=== PATIENT | female | born 1965 | race African-American/Black ===

== ENCOUNTER 2019-03-18 04:12 | Inpatient (IN) | payer OTHER, MEDICAID, SELFPAY ==
[2019-03-18] VITALS (25 sets, daily range): BP systolic 86–130; BP diastolic 50–78; PULSE 65–132; RESP 18–29; TEMP 36.6–37.3; O2SAT 98–100; BMI 25.8
--- NOTE | ~2019-03-18 | XR_ITS ---
EXAMINATION: XR chest 1V portable DATE: 03/18/2019 06:12 INDICATION: Shortness of breath and cough. TECHNIQUE: A single frontal view of the chest was obtained. COMPARISON: Chest 2 views 11/13/2017 FINDINGS: There is mild atelectasis in left mid and lower lung zones. No pleural effusion or pneumoth orax. The heart size is normal. IMPRESSION: 1. Mild atelectasis in left mid and lower lung zones. Reviewed, dictated and finalized at location A. STANT BASEBALL COACH
--- NOTE | ~2019-03-18 | XR_ITS ---
EXAMINATION: XR chest 1V portable DATE: 03/21/2019 05:35 INDICATION: Acute respiratory failure. Pulmonary edema. TECHNIQUE: A single frontal view of the chest was obtained. COMPARISON: Chest single view 03/20/2019, chest CT 03/20/2019 FINDINGS: There is mild atelectasis in left lower lung zone. No pleural effusion or pneumothorax. The heart size is normal. Mediastinal lymphadenopathy is noted. The endotracheal tube tip is 3.4 cm abov e the ondina. A right internal jugular central venous catheter is seen with tip in the superior vena cava. The nasogastric tube tip is in the stomach. There is an old healed fracture of left sixth rib. IMPRESSION: 1. Mild atelectasis in left lower lung zone. 2. Mediastinal lymphadenopathy, consistent with metastatic disease. Reviewed, dictated and finalized at location A. O GENERATION MANAGER
--- NOTE | ~2019-03-18 | XR_ITS ---
EXAMINATION: XR chest 1V portable DATE: 03/20/2019 04:16 INDICATION: Cardiopulmonary failure. TECHNIQUE: A single frontal view of the chest was obtained. COMPARISON: Chest single view 03/19/2019 FINDINGS: There is a diffuse interstitial pattern in the lungs. There are airspace opacities in the p erihilar regions bilaterally. No pleural effusion or pneumothorax. The heart size is normal. Calcifie d hilar and mediastinal lymph nodes are consistent with old granulomatous disease. IMPRESSION: 1. Worsened diffuse lung disease, consistent with moderate pulmonary edema. Reviewed, dictated and finalized at location A. RACT SPECIALIST
--- NOTE | ~2019-03-18 | XR_ITS ---
EXAMINATION: XR chest ET placement DATE: 03/20/2019 03:57 INDICATION: Intubation. TECHNIQUE: A single frontal view of the chest was obtained. COMPARISON: Chest single view at 2:52 AM FINDINGS: There is a diffuse interstitial pattern in the lungs. There are bilateral perihilar airspac e opacities. No pleural effusion or pneumothorax. The heart size is normal. The endotracheal tube tip is 6 mm above the ondina. The nasogastric tube tip is beyond the inferior margin of the radiograph, but at least to the stomach. IMPRESSION: 1. Endotracheal tube tip 6 mm above the ondina. 2. Unchanged moderate pulmonary edema. Reviewed, dictated and finalized at location A. UCT MARKETING SPECIALIST
--- NOTE | ~2019-03-18 | XR_ITS ---
EXAMINATION: XR chest 1V portable DATE: 03/25/2019 05:58 INDICATION: Acute respiratory failure. Pulmonary edema. TECHNIQUE: frontal view of the chest was obtained. COMPARISON: Chest radiograph dated 03/24/2019 FINDINGS: Endotracheal tube tip 3.2 cm above the ondina. Right internal jugular central venous catheter with di stal tip at the midsuperior vena cava. Nasogastric tube with proximal side-port in the body of the st omach and distal tip extending beyond the inferior margin of the [id number]. Again seen is a diffuse increased indistinct interstitial pattern. Nodular opacity left lower lung zo ne. No pleural effusion or pneumothorax. Heart size is normal. Large left superior mediastinal mass w hich silhouettes the aortic arch. Left fifth rib fracture. IMPRESSION: 1. Unchanged mild pulmonary edema. 2. Nodular opacity left lower lobe with superior left mediastinal mass suspicious for metastatic lung cancer. Reviewed, dictated and finalized at location A. KSMITH SUPERVISOR IMPRESSION: 1. Unchanged mild pulmonary edema. 2. Nodular opacity left lower lobe with superior left mediastinal mass suspicio us for metastatic lung cancer.
--- NOTE | ~2019-03-18 | CT_ITS ---
EXAMINATION: CTA chest PE abdomen pel DATE: 03/20/2019 11:32 INDICATION: Pulmonary embolus. Colitis. TECHNIQUE: Computed tomography angiography (CTA) of the chest was performed with 100 mL Omnipaque-350 intravenous contrast timed to evaluate the pulmonary arteries. Coronal maximum intensity projection 3D-reconstructions were created by the technologist. Computed tomography (CT) of the abdomen and pelv is was performed with intravenous contrast. Automated exposure control and iterative reconstruction t echnique were employed. The dose-length product was 1315.02 mGy-cm. COMPARISON: None. FINDINGS: CTA chest: There is mild emphysema. The lungs demonstrate smooth septal thickening, consistent with p ulmonary edema. There is dependent atelectasis bilaterally. There is a 1.4 cm nodule in left lung low er lobe. There is a trace right pleural effusion. There is mediastinal and left supraclavicular lymph adenopathy. For example, a left supraclavicular node measures 4.3 x 3.2 cm. The endotracheal tube tip is in expected position above the ondina. Calcified left hilar and mediastinal lymph nodes are consi stent with old granulomatous disease. The nasogastric tube tip is in the stomach. There is no pulmona ry embolus. There is moderate thoracic spondylosis. CT abdomen and pelvis: There is a 1.9 cm low-attenuation mass in right hepatic lobe. The gallbladder is normal. There is a 2.0 cm low-attenuation mass in the spleen. The pancreas is normal. There are ma sses in the adrenal glands measuring up to 6.4 x 3.5 cm on the right. The kidneys are normal. There a re no dilated loops of bowel. There is a small volume of ascites. There is edema of the body wall fat and intra-abdominal fat. There is severe lumbar spondylosis. IMPRESSION: 1. No pulmonary embolus. Sensitivity is moderately decreased by motion artifact. 2. 1.4 cm nodule in left lung lower lobe suspicious for primary bronchogenic carcinoma. 3. Mediastinal and left supraclavicular lymphadenopathy and bilateral adrenal masses, consistent with metastatic disease. A liver mass and a splenic mass are suspicious for metastatic disease. 4. Mild pulmonary edema. 5. Mild emphysema. 6. Small volume of ascites. Reviewed, dictated and finalized at location A. ROSE CRUSHER IMPRESSION: 1. No pulmonary embolus. Sensitivity is moderately decreased by motion artifact . 2. 1.4 cm nodule in left lung lower lobe suspicious for primary bronchogenic ca rcinoma. 3. Mediastinal and left supraclavicular lymphadenopathy and bilateral adrenal m asses, consistent with metastatic disease. A liver mass and a splenic mass are suspicious for metastatic disease. 4. Mild pulmonary edema. 5. Mild emphysema. 6. Small volume of ascites.
--- NOTE | ~2019-03-18 | XR_ITS ---
EXAMINATION: XR chest 1V portable DATE: 03/19/2019 00:25 INDICATION: Pulmonary edema. TECHNIQUE: A single frontal view of the chest was obtained. COMPARISON: Chest single view 03/18/2019 FINDINGS: There is a diffuse interstitial pattern in the lungs, consistent with mild pulmonary edema. Calcified pulmonary nodules and calcified hilar and mediastinal lymph nodes are consistent with old granulomatous disease. No pleural effusion or pneumothorax. The heart size is normal. IMPRESSION: 1. Mild pulmonary edema. Reviewed, dictated and finalized at location A. EL TRUCK DRIVER IMPRESSION: 1. Mild pulmonary edema.
--- NOTE | ~2019-03-18 | XR_ITS ---
EXAMINATION: XR chest 1V portable DATE: 03/24/2019 06:03 INDICATION: Acute respiratory failure. Pulmonary edema. TECHNIQUE: frontal view of the chest was obtained. COMPARISON: Chest radiograph dated 03/23/2019 FINDINGS: Endotracheal tube tip 3.2 cm above the ondina. Right internal jugular central venous catheter with di stal tip in the midsuperior vena cava. Nasogastric tube with proximal side-port in the body of the s tomach with distal tip collimated off the study. No interval change attending for differences in technique in a diffuse mild increased interstitial pa ttern consistent with mild pulmonary edema. Subtle nodular opacity projecting over the left lower dorian g zone. No pleural effusion or pneumothorax. Heart size is normal. Large left superior mediastinal ma ss which silhouettes the aortic arch. Old healed left fifth rib fracture. IMPRESSION: 1. Persistent mild pulmonary edema. 2. Subtle nodules in the left lower lung zone with left superior mediastinal mass suspicious for meta static disease. Reviewed, dictated and finalized at location A. E ASSEMBLER AND SWAGER IMPRESSION: 1. Persistent mild pulmonary edema. 2. Subtle nodules in the left lower lung zone with left superior mediastinal ma ss suspicious for metastatic disease.
--- NOTE | ~2019-03-18 | XR_ITS ---
XR chest 1V portable DATE: 03/23/2019 06:08 INDICATION: Acute respiratory failure. Pulmonary edema. TECHNIQUE: Portable AP chest on 03/23/2019 at 0516 hours COMPARISON: 03/22/2019 portable AP chest at 0509 hours FINDINGS: ET tube in satisfactory position 3.6 cm above ondina. NG tube in stomach. Right internal ju gular central venous catheter tip overlies the superior vena cava. Normal heart size. Mild aortic unfolding. There is discoid atelectasis in the left mid lung. There is diminished infiltrate or atelectasis in t he left lower lung. No pleural effusion. No pneumothorax. Diffuse osteopenia. IMPRESSION: , Diminished left lower lobe infiltrate since 03/22/2019 Discoid atelectasis, left midlung Reviewed, dictated and finalized at location A. OR INTERNAL AUDITOR
--- NOTE | ~2019-03-18 | XR_ITS ---
EXAMINATION: XR fl Dobhoff insert/rad w img DATE: 03/26/2019 11:36 INDICATION: Nasoenteric tube placement. TECHNIQUE: I placed a nasoenteric tube with fluoroscopic guidance. Fluoroscopy exposure time was 1.1 minutes. The total number of images was 4. COMPARISON: Abdomen radiographs 03/23/2019 FINDINGS: The new nasoenteric tube tip is in the distal stomach. Slack in the tube should allow it to pass into the duodenum with peristalsis. The orogastric tube tip is in the stomach. IMPRESSION: 1. Fluoroscopy guided nasoenteric tube placement with tip in the distal stomach. Reviewed, dictated and finalized at location A. PER CUTTER IMPRESSION: 1. Fluoroscopy guided nasoenteric tube placement with tip in the distal stomach .
--- NOTE | ~2019-03-18 | CT_ITS ---
EXAMINATION: CT brain wo con DATE: 03/23/2019 10:12 INDICATION: Encephalopathy TECHNIQUE: Computed tomography (CT) of the head was performed without intravenous contrast. The mA wa s adjusted according to patient size. Iterative reconstruction technique was employed. Exam dose: 12 10.67 mGy-cm total exam DLP. COMPARISON: None FINDINGS: Examination is limited by motion. Significant motion artifact is noted. Repeat examination is recommended. No intracranial mass lesion or apparent intracranial hemorrhage or subdural or epidural hematoma is d etected. No cerebrovascular accident is detected. There is moderate cerebellar and central and cortical cerebral atrophy. No skull fracture or bone destruction. Included paranasal sinuses and mastoid air cells are normally developed and aerated. IMPRESSION: Limited examination due to motion artifact; repeat examination is recommended No definite acute intracranial finding Reviewed, dictated and finalized at Location A. Reviewed, dictated and finalized at location A. RIMENTAL MECHANIC ELECTRICAL
--- NOTE | ~2019-03-18 | XR_ITS ---
EXAMINATION: XR chest port-a-cath/central DATE: 03/20/2019 04:17 INDICATION: Central line placement. TECHNIQUE: A single frontal view of the chest was obtained. COMPARISON: Chest single view at 3:41 AM FINDINGS: The lungs demonstrate a diffuse interstitial pattern. There are airspace opacities in the p erihilar regions bilaterally. No pleural effusion or pneumothorax. The heart size is normal. The endo tracheal tube tip is 4.1 cm above the ondina. The nasogastric tube tip is in the stomach. A right int ernal jugular central venous catheter is seen with tip in the superior vena cava. IMPRESSION: 1. Stable moderate pulmonary edema. Reviewed, dictated and finalized at location A. MAKER
--- NOTE | ~2019-03-18 | XR_ITS ---
XR chest 1V portable DATE: 03/22/2019 05:33 INDICATION: Acute respiratory failure, pulmonary edema TECHNIQUE: Portable AP chest on 03/22/2019 at 0509 hours COMPARISON: 03/21/2019 portable AP chest at 0510 hours 03/20/2019 CTA chest FINDINGS: ET tube in satisfactory position 4.1 cm above ondina. NG tube in stomach. Right internal ju gular central venous catheter tip overlies the superior vena cava. No pneumothorax. Normal heart size. Mediastinal adenopathy is again noted. There is interval improvement of left lower lobe infiltrate or atelectasis since 03/21/2019. There is mild pulmonary vascular congestion and redistribution and mild prominence of the minor fissu re suggesting mild congestive changes. No pleural effusions. IMPRESSION: Minimal residual left lower lung infiltrate or atelectasis Mild congestive changes Reviewed, dictated and finalized at location A. T MANAGER
--- NOTE | ~2019-03-18 | CT_ITS ---
EXAMINATION: CT brain wo con DATE: 03/26/2019 11:04 INDICATION: Altered mental status TECHNIQUE: Computed tomography (CT) of the head was performed without intravenous contrast. Sagittal and coronal reconstructions were performed. The mA was adjusted according to patient size. Iterative reconstruction technique was employed. The dose-length product was 605.33 mGy-cm. COMPARISON: head CT dated 03/23/2019 FINDINGS: No acute intracranial hemorrhage, acute infarction or abnormal extra axial fluid collection. Symmetri c prominence of the sulci and subarachnoid spaces overlying the convexities consistent with mild diff use cerebral volume loss. Ventricles are normal and symmetric. No mass/mass effect. The orbits, para nasal sinuses and mastoid air cells are normal. IMPRESSION: 1. No acute intracranial process. Reviewed, dictated and finalized at location A. CHUTE HARNESS RIGGER
--- NOTE | ~2019-03-18 | XR_ITS ---
XR abdomen obstructive series DATE: 03/23/2019 10:15 INDICATION: Stomach not emptying. Ileus. Evaluate for small bowel obstruction. TECHNIQUE: Supine and upright AP views COMPARISON: None FINDINGS: A nasogastric tube is noted in the proximal body the stomach, the proximal side port approx imately 2.5 cm distal to the diaphragmatic hiatus. Nonspecific bowel gas pattern; no apparent bowel obstruction IMPRESSION: Nonspecific abdomen NG tube in proximal body of stomach Reviewed, dictated and finalized at Location A. Reviewed, dictated and finalized at location A. E MAINTAINER
--- NOTE | ~2019-03-18 | XR_ITS ---
EXAMINATION: XR abdomen obstructive series DATE: 03/24/2019 09:29 INDICATION: Adynamic ileus. TECHNIQUE: Upright and supine views of the abdomen were obtained. COMPARISON: Abdomen radiographs 03/23/2019, CT abdomen and pelvis 03/20/2019 FINDINGS: There are no dilated loops of bowel. No free peritoneal gas. The nasogastric tube tip is in the stomach. Calcified mediastinal lymph nodes are consistent with old granulomatous disease. Medias tinal lymphadenopathy is noted. IMPRESSION: 1. Normal bowel gas pattern. 2. Mediastinal lymphadenopathy, consistent with metastatic disease. Reviewed, dictated and finalized at location A. S SUPPORT CONSULTANT
--- NOTE | ~2019-03-18 | US_ITS ---
EXAMINATION: US venous doppler UE DATE: 03/24/2019 10:37 INDICATION: Left upper limb swelling TECHNIQUE: Grayscale images without and with compression and Doppler images of the left upper extremi ty veins were obtained. COMPARISON: None. FINDINGS: The left internal jugular vein, subclavian vein, axillary vein, brachial vein, basilic vein, cephalic vein, radial vein, and ulnar vein are patent. Bulky left cervical lymphadenopathy with largest lymph node measuring 3.1 x 2.7 x 2.2 cm. IMPRESSION: 1. Patent left upper extremity veins. No evidence of venous thrombosis. 2. Bulky left cervical lymphadenopathy suspicious for metastatic disease and which would be minimal t o percutaneous biopsy if clinically indicated. Reviewed, dictated and finalized at location A. SERVICE ATTENDANT IMPRESSION: 1. Patent left upper extremity veins. No evidence of venous thrombosis. 2. Bulky left cervical lymphadenopathy suspicious for metastatic disease and wh ich would be minimal to percutaneous biopsy if clinically indicated.
--- NOTE | ~2019-03-18 | XR_ITS ---
EXAMINATION: XR chest 1V portable DATE: 03/23/2019 15:38 INDICATION: Shortness of breath. Tachycardia. TECHNIQUE: frontal view of the chest was obtained. COMPARISON: Chest radiograph dated 04/12/2019 FINDINGS: Endotracheal tube tip 3.3 cm above the ondina. Tip of a right internal jugular central venous cathete r at the midsuperior vena cava. Nasogastric tube extends below the left hemidiaphragm with distal ti p collimated off the study. No focal airspace opacities, pleural effusion, pulmonary edema or pneumothorax. The cardiomediastinal silhouette is normal. Visualized bones and soft tissues are unremarkable. IMPRESSION: 1. Lines and tubes in expected positions. No acute cardiopulmonary disease. Reviewed, dictated and finalized at location A. R SYSTEM OPERATOR
--- NOTE | 2019-03-18 04:14 | ED.RECABL ---
HPI - Recheck/Abnormal Lab/Rx General Chief Complaint: Recheck/Abnormal Lab/Rx Stated Complaint: low blood pressure Time Seen by Provider: 03/18/19 04:13 History of Present Illness HPI narrative: Brought in by EMS from OR for hypotension. H/o lung cancer getting care at [facility]. Recently admitted there and required multiple transfusions for anemia. Unclear the etiology. She denies any bleeding, dark stools, or other cause. She requested to be transported to [facility], EMS brought her here due to hypotension. On arrival here she states that she just feels weak. She says this is not new. She has no other complaints. She does admit to poor PO intake. Related Data Home Medications Medication Instructions Recorded Confirmed albuterol sulfate [ProAir HFA] 2 puff INHALATION QID PRN 03/18/19 alprazolam 0.25 mg PO BID PRN 03/18/19 budesonide-formoterol 2 puff INHALATION Q12H 03/18/19 folic acid 1 mg PO DAILY 03/18/19 hydrocodone-acetaminophen 1 tablet PO Q6H PRN 03/18/19 lisinopril-hydrochlorothiazide 1 tablet PO DAILY 03/18/19 magnesium oxide 400 mg PO BID 03/18/19 mecobalamin (vitamin B12) 1,000 mcg SUBLINGUAL DAILY 03/18/19 megestrol 400 mg PO DAILY 03/18/19 metoprolol succinate 200 mg PO DAILY 03/18/19 montelukast 10 mg PO HS 03/18/19 multivitamin with iron [Daily 1 tablet PO DAILY 03/18/19 Vites/Iron] pantoprazole 40 mg PO QACDINNER 03/18/19 potassium chloride 20 meq PO DAILY 03/18/19 thiamine HCl (vitamin B1) [Vitamin 100 mg PO DAILY 03/18/19 B-1] Allergies Allergy/AdvReac Type Severity Reaction Status Date / Time tramadol Allergy Unknown Hives Verified 03/18/19 04:25 [facility] Past Medical History Medical History (Updated 03/18/19 @ 06:12 by Kobe Martinez MD) Lung cancer Surgical History Surgical History (Updated 03/18/19 @ 06:04 by Kobe Martinez MD) Hx of abdominal hysterectomy Family History Family History (Updated 06/21/17 @ 13:46 by DOCTOR UNKNOWN) Grandparent Family history of malignant neoplasm of breast Mother Depression Asthma Father Asthma Family history of alcoholism Sibling Asthma Patient's sister is in good health Other Cerebrovascular accident Family history of malignant neoplasm Family history of malignant neoplasm of male breast Social History Social History Smoking status: Smoker, status unknown Smoking end date: 02/13/16 Alcohol intake: never Substance use type: marijuana Exam Const: General: no acute distress, alert and ill appearing chronically Orientation/consciousness: patient oriented x3 HENMT: Head: normal to inspection Eyes: Pupils: Equal, round and reactive pupils present Other: pale conjunctiva Neck: Neck: lymphadenopathy Resp: Effort & Inspection: normal respiratory effort Auscultation: clear to auscultation bilaterally Cardio: Rate: regular rate Rhythm: regular rhythm GI: Inspection: non-distended Other: epigastric tenderness Skin: Wounds: no wounds Neuro: General: patient oriented x3 and moves all extremities Speech: normal speech Extrem: General: normal to inspection Course Course Emergency Course: Attempted to contact [facility]. She is not a patient there. Vital Signs Vital signs: Vital Signs Temperature 37.1 C 03/18/19 04:08 Pulse Rate 74 03/18/19 04:08 Respiratory Rate 18 03/18/19 04:08 Blood Pressure 95/57 L 03/18/19 04:08 Pulse Oximetry 100 03/18/19 04:08 Temperature 37.1 C 03/18/19 04:08 Pulse Rate 74 03/18/19 04:08 Respiratory Rate 18 03/18/19 04:08 Blood Pressure 95/57 L 03/18/19 04:08 Pulse Oximetry 100 03/18/19 04:08 MDM - Recheck/Abnormal Lab/Rx Lab Data Result diagrams: 03/18/19 04:18 03/18/19 04:18 Labs: Lab Results 03/18/19 03/18/19 03/18/19 Range/Units 04:18 04:18 04:18 WBC 30.4 H (4.5-10.0) K/mm3 RBC 1.73 L (4.2-5.4) M/mm3 Hgb 4.8 L* (12.0-15.0) g/dL Hct 15.0 L* (37.0-47.0) % MCV
[2019-03-18 04:28] LABS: Basophils Percent Auto 0.1 % (0.2-1.2); Immature Granulocyte Absolute 0.78 K/mm3 (0.00-0.031); Immature Granulocyte Percent A 2.6 % (0-0.5); Lymphocytes Absolute Auto 2.27 K/mm3 (0.9-3.2); Lymphocytes Percent Auto 7.5 % (18.3-44.2); Mean Corpuscular Hemoglobin 27.7 pg (26-34); Mean Corpuscular Volume 86.7 fl (80-100); Mean Platelet Volume 9.2 fl (7.4-10.4); Monocytes Absolute Auto 1.4 K/mm3 (0.1-0.6); Monocytes Percent Auto 4.6 % (2.6-8.5); Neutrophils Absolute Auto 25.9 K/mm3 (1.3-6.7); Neutrophils Percent Auto 85.2 % (45.5-73.1); Platelet Count Result 540 k/mm3 (150-375); Red Blood Count 1.73 M/mm3 (4.2-5.4); Red Cell Distribution Width 15.6 % (11.5-14.5); White Blood Count 30.4 K/mm3 (4.5-10.0)
[2019-03-18] MEDS: SODIUM CHLORIDE 0.9% IV 1,000 ML 999 ML IV CONT (04:29)
[2019-03-18 04:35] LABS: INR 1.8; Prothrombin Time 20.7 Seconds (11.1-14.7)
[2019-03-18 04:36] LABS: Partial Thromboplastin Time 48.5 SECONDS (22.3-36.8)
[2019-03-18 04:42] LABS: Hemoglobin 4.8 g/dL (12.0-15.0)
[2019-03-18 04:43] LABS: Hypochromasia 2+ (NORMAL); Large Platelets Present; Platelet Estimate Increased (Adequate)
[2019-03-18 05:03] LABS: Alanine Aminotransferase 8 U/L (4-35); Albumin Level 2.5 g/dL (3.5-5.1); Alkaline Phosphatase 166 U/L (38-126); Aspartate Amino Transferase 18 U/L (14-36); Bilirubin,Total 0.8 mg/dL (0.2-1.3); Blood Urea Nitrogen 34 mg/dL (7-17); Calcium 7.8 mg/dL (8.4-10.2); Carbon Dioxide 24 mmol/L (22-30); Chloride 95 mmol/L (98-107); Estimated CRCL calculation 54 ml/min; Estimated Glomerular Filt Rate > 60; Glucose 108 mg/dL (65-105); Potassium 2.8 mmol/L (3.4-5.0); Sodium 132 mmol/L (137-145)
[2019-03-18] MEDS: SODIUM CHLORIDE 0.9% IV 250 ML 30 ML IV CONT (05:49)
[2019-03-18] MEDS: LACTATED RINGERS 1,000 ML 125 ML IV CONT ×2 (05:50→16:00)
--- NOTE | 2019-03-18 05:59 | PM.IMHP ---
H&P: HPI History of Present Illness Chief complaint: low blood pressure Narrative: This is a 53 year old female with known recently diagnosed lung cancer who presented to the hospital from [facility] after being found to be hypotensive. The patient states she knew something was wrong because she was very tired and felt weak. On arrival to the hospital the patient was found to be hypotensive with a low H/H of 4.8/15. She denies any chest pain, lightheadedness, dizziness, shortness of breath, palpitations, black tarry stools, bright red rectal bleeding, nausea or vomiting of dark material. The patient states that she was diagnosed with lung cancer at [facility] although ER provider called over to [place] and they said they have no records of her. She admits that she quit smoking 1 month ago and has had an intermittent sporadic dry cough. She denies any abdominal pain, dysuria, hematuria or focal neurological symptoms. ER provider has ordered blood transfusions and has consulted [facility], Dr. Miner. The patient tells me that she is not on any medications. No other complaints. Review of Systems Review of Systems: All systems reviewed & are unremarkable except as noted in HPI and below PMFSH Past Medical History Medical History Lung cancer Surgical History Surgical History Hx of abdominal hysterectomy Family History Family History Grandparent Family history of malignant neoplasm of breast Mother Depression Asthma Father Asthma Family history of alcoholism Sibling Asthma Patient's sister is in good health Other Cerebrovascular accident Family history of malignant neoplasm Family history of malignant neoplasm of male breast Social History Social History Smoking status: Smoker, status unknown Smoking end date: 02/13/16 Alcohol intake: never Substance use type: marijuana Meds Home Medications and Allergies Home Medications Medication Instructions Recorded Confirmed Type albuterol sulfate [ProAir HFA] 2 puff INHALATION QID PRN 03/18/19 History alprazolam 0.25 mg PO BID PRN 03/18/19 History budesonide-formoterol 2 puff INHALATION Q12H 03/18/19 History folic acid 1 mg PO DAILY 03/18/19 History hydrocodone-acetaminophen 1 tablet PO Q6H PRN 03/18/19 History lisinopril-hydrochlorothiazide 1 tablet PO DAILY 03/18/19 History magnesium oxide 400 mg PO BID 03/18/19 History mecobalamin (vitamin B12) 1,000 mcg SUBLINGUAL DAILY 03/18/19 History megestrol 400 mg PO DAILY 03/18/19 History metoprolol succinate 200 mg PO DAILY 03/18/19 History montelukast 10 mg PO HS 03/18/19 History multivitamin with iron [Daily 1 tablet PO DAILY 03/18/19 History Vites/Iron] pantoprazole 40 mg PO QACDINNER 03/18/19 History potassium chloride 20 meq PO DAILY 03/18/19 History thiamine HCl (vitamin B1) [Vitamin 100 mg PO DAILY 03/18/19 History B-1] Allergies Allergy/AdvReac Type Severity Reaction Status Date / Time tramadol Allergy Unknown Hives Verified 03/18/19 04:25 Vital Signs Vital Signs - 24 hr 03/18/19 04:08 Temperature 37.1 C Pulse Rate 74 Respiratory Rate 18 Blood Pressure 95/57 L Pulse Oximetry 100 Exam Const: General: cooperative, no acute distress, alert, awake and ill appearing chronically Nutritional Appearance: thin Orientation/consciousness: patient oriented x3 HENMT: Head: normal to inspection General nose exam: Normal external nose present Face and sinus: normal facial exam Mouth: Yes Normal oral and palatal mucosa present and Yes oropharynx normal Eyes: Pupils: Equal, round and reactive pupils present EOM: EOMs intact bilaterally Neck: Neck: supple and no JVD Thyroid: thyroid normal Lymphatic: lymphadenopathy (Matted nontende
[2019-03-18 06:42] LABS: Lactic Acid Reflex 0.8 mmol/L (0.7-2.1)
--- NOTE | 2019-03-18 09:18 | ADMIMU ---
This patient, Maria Fernanda Leal, was admitted to IMU status, and placed in Intensive Care Unit-1 at 0810. Patient/family oriented to hospital policies and general routines including ID bracelet, bed and alarms, visiting hours, pain management, procedures, bathroom and other care routines, personal items, smoking policy, room service/diet, and visiting hours. Valuables list has been completed. Information on how to activate the Rapid Response Team has been discussed. Patient/Family are encouraged to report perceived risks to care and to ask questions if they do not understand what they are told or what they should do.
[2019-03-18] MEDS: SODIUM CHLORIDE 0.9% IV 250 ML 50 ML (10:06)
[2019-03-18] MEDS: TUBING, BLOOD PLUM PUMP TUBING 1 EACH XX (10:06)
[2019-03-18 10:13] LABS: Lactic Acid 0.9 mmol/L (0.7-2.1)
--- NOTE | 2019-03-18 11:37 | WPDCNINT ---
Assessment and Plan Assessment and plan (1) Arterial hypotension: Qualifiers: Hypotension type: other hypotension type Qualified Code(s): I95.89 - Other hypotension Code(s): I95.9 - Hypotension, unspecified Status: Acute Assessment and Plan: Patient is on multiple antihypertensive medications at home. She was given 1 L of fluid bolus in the emergency room. Her hypotension likely is related to anemia. Will transfuse 2 units of packed RBCs. She is awake and alert with adequate urine output at this point. Her maps are greater than 65. Hence will hold off on pressor placement for now. It does not appear to be sepsis as a lactic acid is 0.8 and she does not have any source of infection. Her white count is elevated 30,000 but apparently that is chronic. Blood cultures have been drawn. She has not been placed on any empiric antibiotics. (2) Symptomatic anemia: Code(s): D64.9 - Anemia, unspecified Status: Acute Assessment and Plan: Appears to be anemia of chronic disease. As per patient she had an extensive workup for this anemia at [facility] and had also received multiple blood transfusions there. We will try to obtain records from [place] instead of starting the whole workup here. At this point I will transfuse 2 units of packed RBCs and do serial H&H. There is no evidence of active bleeding. (3) Lung cancer: Qualifiers: Laterality: unspecified laterality Lung location: unspecified part of lung Qualified Code(s): C34.90 - Malignant neoplasm of unspecified part of unspecified bronchus or lung Code(s): C34.90 - Malignant neoplasm of unspecified part of unspecified bronchus or lung Status: Chronic Assessment and Plan: Patient is a poor historian and is unable to provide as to what type of cancer she has and at what stage. She does not think that she has received any treatment for the same. All her workup has been done at [facility]. Will try to obtain records from there. She is currently on room air. Chest x-ray appears to be clear. (4) Leukocytosis: Qualifiers: Leukocytosis type: unspecified Qualified Code(s): D72.829 - Elevated white blood cell count, unspecified Code(s): D72.829 - Elevated white blood cell count, unspecified Status: Acute Assessment and Plan: The white count is elevated at 30,000 though there is no clear source of infection. We will check a UA. Chest x-ray is clear. She has no abdominal tenderness or pain. She has no fever. There is some history of chronic leukocytosis in the past too. We will try to obtain old records. Blood cultures have been ordered. We will hold off on starting any antibiotics. (5) Thrombocytosis: Code(s): D47.3 - Essential (hemorrhagic) thrombocythemia Status: Acute Assessment and Plan: Likely secondary to lung cancer. Monitor platelets. (6) Hypokalemia: Code(s): E87.6 - Hypokalemia Status: Acute Assessment and Plan: KCL rider. Monitor serum potassium. telemetry. (7) Tachycardia: Code(s): R00.0 - Tachycardia, unspecified Status: Acute Additional Plan Time spent- 40 min Full code Ase Master Mechanic Consult Note Consult date: 03/18/19 Time Seen: 12:59 HPI: Maria Fernanda Leal is a 53 year old female With past medical history significant for lung cancer, chronic anemia , tachycardia who presented to the emergency room because of increased weakness. Apparently patient was recently discharged from [facility] after extensive workup for her anemia and had received multiple blood transfusions. Patient also has a lung cancer but she is unable to provide any history as to what kind and what stage is her cancer. She does say that they she is too weak to start chemotherapy. Patient also has had a Holter in the past due to her tachycardia and has been on high doses of Lopressor ,200mg daily . In t
[2019-03-18] MEDS: POTASSIUM CHLORIDE 20 MEQ TABLET 40 MEQ PO (12:21)
[2019-03-18] MEDS: LACTATED RINGERS 1,000 ML 999 ML IV CONT (12:21)
[2019-03-18 13:32] LABS: Iron 19 ug/dL (37-170)
[2019-03-18 13:41] LABS: Percent Iron Saturation 15 % (20-50)
[2019-03-18 14:05] LABS: Immature Reticulocyte Fraction 17.4 % (3.0-15.9); Reticulocyte Hemoglobin Conten 27.5 pg (28.2-35.7); Reticulocyte Percent 2.49 % (0.7-4.3); Reticulocytes Absolute 0.05 B/L (32.2-175.7)
[2019-03-18 14:07] LABS: Blood Urea Nitrogen 29 mg/dL (7-17); Calcium 7.7 mg/dL (8.4-10.2); Carbon Dioxide 22 mmol/L (22-30); Chloride 97 mmol/L (98-107); Estimated CRCL calculation 60 ml/min; Estimated Glomerular Filt Rate > 60; Glucose 129 mg/dL (65-105); Lactate Dehydrogenase 674 U/L (313-618); Potassium 2.9 mmol/L (3.4-5.0); Sodium 131 mmol/L (137-145)
[2019-03-18 14:11] LABS: Hematocrit 19.3 % (37.0-47.0); Hemoglobin 6.2 g/dL (12.0-15.0)
[2019-03-18] MEDS: METOPROLOL TARTRATE 25 MG TABLET PO (15:10)
[2019-03-18 15:18] LABS: Folic Acid 6.1 ng/mL (2.76->20)
[2019-03-18 15:19] LABS: Ferritin > 2000.00 ng/mL (11.1-264)
[2019-03-18] MEDS: PANTOPRAZOLE 40 MG TABLET PO (18:20)
--- NOTE | 2019-03-18 18:21 | PC.NURSE ---
Per patient, Lisa Luna is her daughter and power of criminal defense attorney. Anna Luna is the son in law and his phone numbers are [phone] and [phone]. Message was relayed to Dr. Robles that Lisa and the patient are requesting a transfer to [place]. He said he will call and work on getting her a bed there.
[2019-03-18] MEDS: ALBUTEROL SULFATE (*SP) AEROSOL 1 PUFF 2 PUFF INHALATION (19:40)
[2019-03-18 19:53] LABS: Hemoglobin 4.6 g/dL (12.0-15.0)
[2019-03-18 19:54] LABS: Hematocrit 14.6 % (37.0-47.0)
--- NOTE | 2019-03-18 23:43 | CONS_ITS ---
DATE OF CONSULTATION: 03/18/2019 REASON FOR CONSULTATION: Profound anemia. HISTORY OF PRESENTING ILLNESS: This is a 53-year-old female, who was diagnosed to have lung cancer about 3 to 4 weeks ago. The patient has not started any treatment yet. The patient is a poor historian. She came in from [facility] with extreme weakness and found to be quite hypotensive. She has been complaining of tiredness and fatigue. She denies any bleeding including melena and hematochezia. She denies any chest pain, but does have some shortness of breath. She has a history of smoking and quit about a month ago at the time of her diagnosis. She denies any fevers and chills. Her lab showed hemoglobin of 4.8 with elevated WBC count of 30.4. REVIEW OF SYSTEMS: Twelve-point review of system was reviewed and as per HPI, otherwise negative. PAST MEDICAL HISTORY: Recent diagnosis of lung cancer. PAST SURGICAL HISTORY: Abdominal hysterectomy. FAMILY HISTORY: Breast cancer in grandmother as well as family history of male breast cancer. SOCIAL HISTORY: The patient quit smoking recently. She denies any alcohol intake. HOME MEDICATIONS: Reviewed. ALLERGIES: REVIEWED. PHYSICAL EXAMINATION: GENERAL: This patient is a quite tired and pale looking female, in no apparent distress. Alert and oriented. VITAL SIGNS: As per nursing note. HEENT: Normocephalic, atraumatic. Clear oropharynx. LUNGS: Clear to auscultation bilaterally. CARDIOVASCULAR: Regular rate and rhythm. No murmurs. ABDOMEN: Soft, nontender, nondistended. Bowel sounds are positive in all 4 quadrants. No hepatosplenomegaly. EXTREMITIES: No edema. NEUROLOGIC: Grossly intact. LABORATORY DATA: WBC 30.4, hemoglobin 6.2, and it was 4.8 prior to the transfusion, MCV 86.7, platelet 540,000, neutrophils 85%, lymphocytes 7.5%, and reticulocyte count 2.49. INR 1.8, PTT 48.5. Creatinine 1.0, calcium 7.8, iron 19, iron saturation 15%, ferritin more than 20,000, LDH 674, vitamin B12 of 463, total protein is 6.0. ASSESSMENT AND PLAN: 1. Normocytic anemia with leukocytosis. The patient was recently diagnosed to have lung cancer, but has not started any treatment yet. She denies any bleeding and bruising. She has a history of anemia of chronic disease and apparently had received blood transfusion in the past. She is a poor historian. I am concerned about iron deficiency anemia versus anemia of chronic disease as well as hemolytic anemia. I have ordered a workup for hemolytic anemia including Sully test and haptoglobin. LDH came back slightly elevated. Iron studies are more consistent with anemia of chronic disease with low TIBC. There is also possibility of bone marrow involvement with the recently diagnosed malignancy. Record of her malignancy is not available. I agree with blood transfusion while waiting for the anemia workup. Vitamin B12 also came back on the low side. I do not see a need for bone marrow biopsy. She could also have anemia of recent infection and inflammation as white blood cell count is also elevated. 2. Leukocytosis. Source of her infection is not found. Chest x-ray was clear. UA has been ordered. Blood cultures are pending. 3. Recent diagnosis of lung cancer. We will try to get the records of her lung cancer. I have answered all the questions to the patient satisfaction. KATIE MARQUEZ M.D. MEDIA CONSULTANT MEDIA CONSULTANT D I MT: [place]
[2019-03-19] VITALS (25 sets, daily range): BP systolic 110–132; BP diastolic 61–82; PULSE 107–138; RESP 23–34; TEMP 36.5–37.3; O2SAT 95–100
[2019-03-19] MEDS: METOPROLOL TARTRATE 25 MG TABLET PO (02:37)
[2019-03-19] MEDS: MAGNESIUM OXIDE 400 MG TABLET PO ×3 (02:37→21:18)
[2019-03-19] MEDS: FUROSEMIDE INJ 40 MG/4 ML VIAL 20 MG IV PUSH (02:37)
[2019-03-19 04:39] LABS: IFOB Positive Control Positive; Immunochemical Fecal Occult Bl Negative (N)
[2019-03-19] MEDS: ALBUTEROL SULFATE (*SP) AEROSOL 1 PUFF 2 PUFF INHALATION ×4 (06:56→23:32)
[2019-03-19 08:24] LABS: Basophils Percent Auto 0.1 % (0.2-1.2); Hematocrit 25.3 % (37.0-47.0); Hemoglobin 8.5 g/dL (12.0-15.0); Immature Granulocyte Absolute 0.45 K/mm3 (0.00-0.031); Immature Granulocyte Percent A 1.5 % (0-0.5); Lymphocytes Absolute Auto 1.85 K/mm3 (0.9-3.2); Lymphocytes Percent Auto 6.1 % (18.3-44.2); Mean Corpuscular HGB Conc 33.6 g/dl (32-36); Mean Corpuscular Hemoglobin 28.3 pg (26-34); Mean Corpuscular Volume 84.3 fl (80-100); Mean Platelet Volume 9.2 fl (7.4-10.4); Monocytes Absolute Auto 1.3 K/mm3 (0.1-0.6); Monocytes Percent Auto 4.4 % (2.6-8.5); Neutrophils Absolute Auto 26.8 K/mm3 (1.3-6.7); Neutrophils Percent Auto 87.9 % (45.5-73.1); Platelet Count Result 468 k/mm3 (150-375); Red Cell Distribution Width 15.7 % (11.5-14.5); White Blood Count 30.5 K/mm3 (4.5-10.0)
[2019-03-19] MEDS: METOPROLOL TARTRATE 50 MG TAB PO ×2 (08:59→21:18)
[2019-03-19] MEDS: POTASSIUM CHLORIDE 20 MEQ TABLET.ER PO (08:59)
[2019-03-19] MEDS: THIAMINE HCL 100 MG TABLET PO (08:59)
[2019-03-19] MEDS: THERAPEUTIC MULTIVITAMINS/MINERALS TAB (*BKC) 1 TABLET PO (08:59)
[2019-03-19] MEDS: FOLIC ACID 1 MG TABLET PO (08:59)
[2019-03-19] MEDS: CYANOCOBALAMIN 1,000 MCG TABLET 1000 MCG PO (08:59)
[2019-03-19 09:07] LABS: Blood Urea Nitrogen 24 mg/dL (7-17); Calcium 7.8 mg/dL (8.4-10.2); Carbon Dioxide 20 mmol/L (22-30); Chloride 99 mmol/L (98-107); Estimated CRCL calculation 67 ml/min; Estimated Glomerular Filt Rate > 60; Glucose 100 mg/dL (65-105); Potassium 2.5 mmol/L (3.4-5.0); Sodium 133 mmol/L (137-145)
--- NOTE | 2019-03-19 11:30 | WPDINTPN ---
Progress Note: A&P Assessment and Plan (1) Arterial hypotension: Qualifiers: Hypotension type: other hypotension type Qualified Code(s): I95.89 - Other hypotension Code(s): I95.9 - Hypotension, unspecified Status: Resolved Assessment and Plan: Patient is on multiple antihypertensive medications at home. She was given 1 L of fluid bolus in the emergency room. Her hypotension is likely related to anemia , diarrhea and dehydration . Hypotension ahs resolved with IVF and blood transfusions. She is awake and alert with adequate urine output at this point. There is concern for c-diff with pancolitis on CT and recent abx use . Will start on empiric tx for the same till c-diff toxin is back. (2) Symptomatic anemia: Code(s): D64.9 - Anemia, unspecified Status: Acute Assessment and Plan: Anemia of chronic disease versus bone marrow disease. Patient does have a poor p.o intake but anemia apperas to be too severe for anemia of chronic disease .Records from [facility] reviewed . Patient has early recent admission 03/07/2019 and had received multiple blood transfusions for hemoglobin of 4. EGD was also done which was negative. Patient refused colonoscopy though she has been having some diarrhea. She has received 5 units of packed RBC so far here. d/w heme once . may need bone marrow bx. (3) Lung cancer: Qualifiers: Laterality: unspecified laterality Lung location: unspecified part of lung Qualified Code(s): C34.90 - Malignant neoplasm of unspecified part of unspecified bronchus or lung Code(s): C34.90 - Malignant neoplasm of unspecified part of unspecified bronchus or lung Status: Chronic Assessment and Plan: As per records from [facility] patient has on on non differentiated non small-cell lung cancer. She has Mets to the adrenal bilaterally which have increased in size. . she was scheduled to start outpatient chemotherapy but she did not keep her appointment. (4) Leukocytosis: Qualifiers: Leukocytosis type: unspecified Qualified Code(s): D72.829 - Elevated white blood cell count, unspecified Code(s): D72.829 - Elevated white blood cell count, unspecified Status: Acute Assessment and Plan: The white count is elevated at 30,000 though there is no clear source of infection. urine and blood cx are pending Chest x-ray with mild PVC today . She has abdominal tenderness . She has no fever. There is some history of chronic leukocytosis in the past too. Her WBC count was as high as 26,000 at [facility] as per the records. . Blood cultures have been ordered. Patient was treated with Zosyn of for a centeno colitis that was noted on CT abdomen and pelvis done 02/25/2019 at [facility]. will check stool for c-diff . will start empiric po vanc and IV flagyl till c-diff results are back . (5) Thrombocytosis: Code(s): D47.3 - Essential (hemorrhagic) thrombocythemia Status: Acute Assessment and Plan: Likely secondary to inflammation (6) Hypokalemia: Code(s): E87.6 - Hypokalemia Status: Acute Assessment and Plan: This likely is due to diarrhea. However appears to be severe in nature . Renal consulted to r/o RTA. KCL rider. Monitor serum potassium. will check Mag level and cortisol level (7) Tachycardia: Code(s): R00.0 - Tachycardia, unspecified Status: Acute Assessment and Plan: Patient has had chronic sinus tachycardia with runs of afib and SVT. She is on 200 mg a day of Lopressor. Since her blood pressure has improved the Lopressor dose has been increased today to 50 mg po BID. Heart rate is much better controlled. Will aim to increase the Lopressor dose to her home dose of 200 daily as tolerated. Additional Plan critical care Time spent- 40 min Full code Subjective Date/time seen: 03/19/19 11:30- Monica
--- NOTE | 2019-03-19 11:44 | WPDINTPN ---
Subjective Date/time seen: 03/19/19 11:44 Objective Data Vital Signs Vital Signs: Vital Signs - 24 hr 03/18/19 11:45 03/18/19 12:00 03/18/19 14:00 Temperature 36.7 C 37.0 C Pulse Rate 113 H 117 H 125 H Respiratory Rate 23 H 26 H 21 H Blood Pressure 93/51 L 90/50 L 98/72 L Pulse Oximetry 100 100 100 03/18/19 15:10 03/18/19 15:38 03/18/19 15:55 Temperature 36.6 C 36.7 C Pulse Rate 125 H 121 H 119 H Respiratory Rate 20 27 H Blood Pressure 100/63 111/66 Pulse Oximetry 100 100 03/18/19 16:00 03/18/19 16:55 03/18/19 18:00 Temperature 36.8 C Pulse Rate 120 H 118 H 111 H Respiratory Rate 24 H 25 H 22 H Blood Pressure 111/66 112/73 103/60 Pulse Oximetry 100 100 98 03/18/19 20:00 03/18/19 23:39 03/18/19 23:42 Temperature 36.8 C 37.0 C 37.0 C Pulse Rate 115 H 132 H 120 H Respiratory Rate 18 29 H 20 Blood Pressure 112/78 118/73 118/73 Pulse Oximetry 98 100 100 03/18/19 23:54 03/18/19 23:56 03/19/19 00:00 Temperature 37.2 C 36.9 C 36.9 C Pulse Rate 127 H 125 H 128 H Respiratory Rate 28 H 26 H 27 H Blood Pressure 130/71 126/78 117/70 Pulse Oximetry 100 100 100 03/19/19 00:39 03/19/19 00:54 03/19/19 01:54 Temperature 36.9 C 37.0 C 37.2 C Pulse Rate 128 H 126 H 122 H Respiratory Rate 27 H 24 H 27 H Blood Pressure 119/70 128/75 128/75 Pulse Oximetry 100 99 99 03/19/19 02:00 03/19/19 02:37 03/19/19 02:40 Temperature 37.2 C 37.0 C Pulse Rate 127 H 127 H 128 H Respiratory Rate 26 H 26 H Blood Pressure 128/75 128/78 Pulse Oximetry 99 99 03/19/19 03:17 03/19/19 03:32 03/19/19 04:00 Temperature 37.0 C 36.7 C 37.0 C Pulse Rate 111 H 112 H 107 H Respiratory Rate 26 H 28 H 26 H Blood Pressure 111/66 111/66 110/81 Pulse Oximetry 100 99 99 03/19/19 04:32 03/19/19 04:33 03/19/19 05:33 Temperature 36.9 C 37.0 C 37.1 C Pulse Rate 107 H 120 H 125 H Respiratory Rate 26 H 28 H 26 H Blood Pressure 110/81 132/82 121/76 Pulse Oximetry 99 99 99 03/19/19 06:00 03/19/19 06:10 03/19/19 08:59 Temperature 36.9 C 37.2 C Pulse Rate 125 H 126 H 124 H Respiratory Rate 25 H 27 H Blood Pressure 132/82 132/82 Pulse Oximetry 99 100 Intake/Output Intake/Output: Intake & Output 03/16/19 03/17/19 03/18/19 03/19/19 23:59 23:59 23:59 23:59 Intake Total 3190 1430 Output Total 800 500 Balance 2390 930 Meds/Results Medications: Active Medications Generic Name Dose Route Start Last Admin Trade Name Freq PRN Reason Stop Dose Admin Hydrocodone Bitart/Acetaminophen 1 tab 03/18/19 11:40 [place] 5-325 Mg PO Q6H PRN Pain Albuterol 2 puff 03/18/19 11:40 03/19/19 06:56 Proventil Hfa INHALATION 2 puff QID PRN Administration Shortness Of Breath Or Wheezing Alprazolam 0.25 mg 03/18/19 11:40 Xanax PO BID PRN Anxiety Budesonide/Formoterol Fumarate 2 puff 03/18/19 20:00 03/19/19 06:56 Symbicort 160-4.5 Mcg (*Sp) Inhaler INHALATION 2 puff Q12HRT DAGOBERTO Administration Cyanocobalamin 1,000 mcg 03/19/19 09:00 03/19/19 08:59 Vitamin B-12 Tab PO 04/18/19 09:01 1,000 mcg DAILY DAGOBERTO Administration Folic Acid 1 mg 03/19/19 09:00 03/19/19 08:59 Folic Acid PO 1 mg DAILY DAGOBERTO Administration Magnesium Oxide 400 mg 03/18/19 21:00 03/19/19 08:59 Mag-Ox PO 400 mg Q12HR DAGOEBRTO Administration Metoprolol Tartrate 50 mg 03/19/19 09:00 03/19/19 08:59 Lopressor PO 50 mg Q12HR DAGOBERTO Administration Montelukast Sodium 10 mg 03/18/19 21:00 03/19/19 05:16 Singulair PO Not Given HS DAGOBERTO Multivitamins/Calcium 1 tablet 03/19/19 09:00 03/19/19 08:59 Therapeutic Multivitamins/Minerals PO 1 tablet DAILY DAGOBERTO Administration Pantoprazole Sodium 40 mg 03/18/19 18:00 03/18/19 18:20 Protonix PO 40 mg QPM DAGOBERTO Administration Potassium Chloride 20 meq 03/19/19 09:00 03/19/19 08:59 Kcl Tablet PO 20 meq DAILY DAGOBERTO Administration Thiamine HCl 100 mg 03/19/19 09:00 03/19/19 08:59 V
[2019-03-19 11:56] LABS: Add Urine Microscopic? YES; Appearance Urine Clear (Clear); Bacteria Urine Trace /hpf; Bilirubin Urine Negative (Negative); Blood Urine 3+ (Negative); Color Urine Yellow (Yellow); Glucose Urine UA Negative (Negative); Ketones Urine Negative (Negative); Leukocyte Esterase Ur 2+ LEU/UL (NEGATIVE); Mucus Urine Rare /lpf; Nitrate Urine Negative (Negative); Protein Urine 1+ mg/dL (Negative); RBC Urine >75 /hpf (0-2); Specific Grav Ur 1.011 (1.001-1.035); Urobilinogen Urine Negative mg/dL (<2.0); WBC Urine 51-75 /hpf (0-3)
--- NOTE | 2019-03-19 12:13 | PCDIET ---
ICU Rounding Note: Patient with poor appetite. MD ordered liberalized diet with Ensure Enlive (350kcal, 20g protein) BID. Last recorded weight is 72.6kg which is stable. Bowel Motility: BM x 4 (diarrhea) reported today. Labs Reviewed: Hgb (8.5), Hct (25.3), BUN (24), K (2.5), Na (133), Ca (7.8) Meds Noted: KCl, Vitamin B1, Vitamin B12, Folic Acid, Mag-Ox, MVI with minerals, Protonix Additional Notes: No documented skin breakdown. Recommend continuing regular diet/supplements and encouraging intake. Following daily in ICU rounds. Assessing/reassessing every 3 days.
[2019-03-19] MEDS: metroNIDAZOLE 500 MG/ISO 100ML 500 MG/100 ML BAG 100 MG IVPB ×2 (14:24→23:57)
--- NOTE | 2019-03-19 17:03 | PM.CNNEP ---
Assessment and Plan Assessment and plan (1) Hypokalemia: Code(s): E87.6 - Hypokalemia Status: Acute Assessment and Plan: The patient has hypokalemia. She does have diarrhea now which would of course contribute to potassium loss. It is unclear whether she really had diarrhea at the correction or not. But if she did that would contribute as well. She is not eating very well and so even in people who are malnourished there serum potassium might be stable at the expense of intra of cellular potassium. Gradually however in this population the total body potassium decreases and once the serum potassium is low it indicates severe total body potassium deficit. In this case it requires lots of potassium to finally get the serum potassium up. The patient is on hydrochlorothiazide which would contribute to potassium wasting. Other considerations would be some sort of a potassium wasting syndrome Such as RTA or excess mineral corticoid levels. She does have hypertension so the latter is a possibility. We will get urine electrolytes and consider renin and aldosterone levels when the patient is rehydrated. If we checked these now then it is likely they will be high because of her dehydration. In people who are dehydrated the high renin and aldosterone are stimulated by the low blood pressure but the low sodium delivery to the distal tubule prevents potassium wasting in the normal kidney. So to evaluate this issue she needs to be better hydrated. (2) Symptomatic anemia: Code(s): D64.9 - Anemia, unspecified Status: Acute Assessment and Plan: I talked with Dr. Jensen. etiology of the anemia is unclear. Possibly just poor manufacturing of blood cells. No indication of hemolysis. Platelet count is not low. I do not think this is TTP. (3) Lung cancer: Qualifiers: Laterality: unspecified laterality Lung location: unspecified part of lung Qualified Code(s): C34.90 - Malignant neoplasm of unspecified part of unspecified bronchus or lung Code(s): C34.90 - Malignant neoplasm of unspecified part of unspecified bronchus or lung Status: Chronic Assessment and Plan: The patient has not had any therapy for this yet as she is too weak and too sick. Additional Plan Discussed with Dr. Miner. History of Present Illness Reason for Consult Consult date: 03/19/19 Chief Complaint Chief complaint: Anemia History of Present Illness Narrative: The Aziza is a very pleasant 53-year-old lady who has multiple medical problems including lung cancer which is not started therapy yet, GERD, hypertension, COPD with reversible airways disease, allergies. Lately she has been in an out of the hospital. She was in [facility] because of hypokalemia and anemia. They treated the hypokalemia. She was given blood transfusions as well for the anemia. There she was diagnosed with the lung cancer. They told her she was too weak for therapy. So she was sent to outpatient rehab for strengthening. She was not eating very well in so she was given cannabis pills. she says that she became weaker and weaker while an outpatient rehab. She came over to [facility] for further evaluation. She was seen in the emergency room and found to have a hemoglobin of 4.8 and a very low potassium. She was given potassium supplements and also blood transfusions. The potassium really has not come up very much. So renal consultation was requested patient says that she had low potassium in the past and so that is why she is on oral potassium supplementation. She is on hydrochlorothiazide at the correction but otherwise is on no kaliuretic agents. She does have diarrhea now. She says that she did not have diarrhea before she came in however she is a somewhat difficult historian. She said that she has nausea but she has not been throwing up. She stop smoking a few months ago. She does
--- NOTE | 2019-03-19 17:19 | WPDONCPN ---
Progress Note: A/P - Additional Plan Profound normocytic anemia. Retic count came back low Sully test negative. LDH was mildly elevated but nonspecific. No evidence of hemolytic anemia. I will order bone marrow aspiration and biopsy to look for myelophistic anemia or myelodysplastic syndrome. Patient denies any history of sickle cell anemia. Hemoccult stool came back negative. Still possibility of anemia of chronic inflammation and malignancy. Lung cancer. Status post supraclavicular lymph node biopsy. Patient has metastatic disease with bilateral adrenal glands involvement. Patient is not a candidate for any chemotherapy at this time. Hypokalemia. This is secondary to diarrhea. C diff antigen ordered. Patient is on oral Flagyl for diarrhea. - Time Spent With Patient Total time spent is greater than 50% in coordination of care (as documented) at patient's floor/unit and/or counseling patient: 25 - 35 minutes Subjective Interval history: Normocytic anemia Lung cancer Review of Systems - Review of Systems Patient looks quite tired and weak. She denies any bleeding and bruising. She just had another episode of diarrhea. Denies any fevers and chills. No other new complaints. - Neurologic Reports system reviewed and no additional complaints, except as documented Exam Vital signs: Temp Pulse Resp BP Pulse Ox 36.6 C 123 H 30 H 127/72 100 03/19/19 12:00 03/19/19 14:00 03/19/19 14:00 03/19/19 14:00 03/19/19 14:00 Narrative: Lungs are clear to auscultation bilaterally Cardiovascular regular rate rhythm no murmurs Abdomen soft nontender nondistended bowel sounds are positive Extremities no edema PN: Objective Data - Labs CBC & Chem 7: 03/19/19 08:00 03/19/19 08:00 Labs: Laboratory Results - last 24 hr 03/18/19 03/18/19 03/19/19 04:32 19:25 03:45 WBC RBC Hgb 4.6 L* Hct 14.6 L* MCV MCH MCHC RDW Plt Count MPV Immature Gran % (Auto) Neut % (Auto) Lymph % (Auto) Chase % (Auto) Eos % (Auto) Baso % (Auto) Lymph # (Auto) Chase # (Auto) Eos # (Auto) Baso # (Auto) Abs Immat Gran (auto) Absolute Neuts (auto) Absolute Nucleated RBC Nucleated RBC % Sodium Potassium Chloride Carbon Dioxide BUN Creatinine Estim Creat Clear Calc Estimated GFR Glucose Calcium Urine Color Urine Appearance Urine pH Ur Specific Finley Urine Protein Urine Glucose (UA) Urine Ketones Ur Blood (Man) Urine Nitrate Urine Bilirubin Urine Urobilinogen Ur Leukocyte Esterase Urine RBC Urine WBC Urine Bacteria Hyaline Casts Urine Mucus Stl Occult Blood (IFOB) Negative Blood Type O Positive Antibody Screen Negative Crossmatch See Detail 03/19/19 03/19/19 03/19/19 08:00 08:00 11:39 WBC 30.5 H RBC 3.00 L Hgb 8.5 L D Hct 25.3 L MCV 84.3 MCH 28.3 MCHC 33.6 RDW 15.7 H Plt Count 468 H MPV 9.2 Immature Gran % (Auto) 1.5 H Neut % (Auto) 87.9 H Lymph % (Auto) 6.1 L Chase % (Auto) 4.4 Eos % (Auto) 0.0 Baso % (Auto) 0.1 L Lymph # (Auto) 1.85 Chase # (Auto) 1.3 H Eos # (Auto) 0.0 Baso # (Auto) 0.0 Abs Immat Gran (auto) 0.45 H Absolute Neuts (auto) 26.8 H Absolute Nucleated RBC 0.0 Nucleated RBC % 0.0 Sodium 133 L Potassium 2.5 L* Chloride 99 Carbon Dioxide 20 L BUN 24 H Creatinine 0.80 Estim Creat Clear Calc 67 Estimated GFR > 60 Glucose 100 Calcium 7.8 L Urine Color Yellow Urine Appearance Clear Urine pH 7.0 Ur Specific Finley 1.011 Urine Protein 1+ H Urine Glucose (UA) Negative Urine Ketones Negative Ur Blood (Man) 3+ H Urine Nitrate Negative Urine Bilirubin Negative Urine Urobilinogen Negative Ur Leukocyte Esterase 2+ H Urine RBC >75 H Urine WBC 51-75 H Urine Ba
[2019-03-19] MEDS: POTASSIUM CHLORIDE 20 MEQ PACKET (FOR LIQUID) 40 MEQ PO (17:32)
[2019-03-19] MEDS: CHOLESTYRAMINE LIGHT 4 GM POWD.PACK PO (17:32)
[2019-03-19] MEDS: PANTOPRAZOLE 40 MG TABLET PO (17:33)
[2019-03-19] MEDS: VANCOMYCIN ORAL 125 MG/2.5 ML SYRUP PO (17:37)
[2019-03-19 19:32] LABS: Blood Urea Nitrogen 25 mg/dL (7-17); Calcium 7.8 mg/dL (8.4-10.2); Carbon Dioxide 19 mmol/L (22-30); Chloride 102 mmol/L (98-107); Estimated CRCL calculation 67 ml/min; Estimated Glomerular Filt Rate > 60; Glucose 108 mg/dL (65-105); Magnesium 0.9 mg/dL (1.6-2.3); Potassium 2.6 mmol/L (3.4-5.0); Sodium 135 mmol/L (137-145)
[2019-03-19] MEDS: MONTELUKAST SODIUM 10 MG TABLET PO (21:18)
[2019-03-19] MEDS: ALPRAZOLAM 0.25 MG TABLET PO (23:29)
[2019-03-20] VITALS (27 sets, daily range): BP systolic 77–154; BP diastolic 49–107; PULSE 114–152; RESP 18–34; TEMP 36.9–37.8; O2SAT 95–100; BMI 26.6
--- NOTE | 2019-03-20 | ECHO_ITS ---
Patient Info Name: Maria Fernanda Leal Age: 53 years : 1965 Gender: Female Ht: 66 in Wt: 165 lbs BSA: 1.88 m2 HR: 140 bpm BP: 91 / 58 mmHg Heart Rhythm: Tachycardia Technical Quality: Good Exam Date: 03/20/2019 9:56 AM Exam Location: [facility] Card Pulmonary Patient Status: Inpatient Admit Date: 03/19/2019 Staff Ordering Physician: Harry Lilly MD Roller Man: Jovan Basilio RDCS Attending Provider: Kobe Martinez MD Referring Physician: Vijaya GAMEZ; Exam Type: CA echo doppler color flow Study Info Indications J81.0 - Acute pulmonary edema Complete two-dimensional, color flow and Doppler transthoracic echocardiogram is performed. Strain analysis performed. History/Risk Factors Cardiac arrest; Stage IV Lung cancer; SOB, anemia, HoTN. Summary 1. Left ventricular chamber dimension is mildly enlarged. 2. Left ventricular systolic function is severely reduced, estimated at 30-35%. 3. There is moderately increased left ventricular wall thickness. 4. The left ventricular diastolic function is grade I diastolic dysfunction. 5. Global hypokinesis of the left ventricle. 6. Right ventricular systolic function is reduced. 7. Left atrial chamber dimension is mildly enlarged. 8. There is mild mitral valve regurgitation. 9. There is mild tricuspid valve regurgitation. 10. Moderate pulmonary hypertension, estimated pulmonary arterial systolic pressure is 45 mmHg. 11. There is small pericardial effusion. Left Ventricle Left ventricular chamber dimension is mildly enlarged. Left ventricular systolic function is severely reduced, estimated at 30-35%. There is moderately increased left ventricular wall thickness. The left ventricular diastolic function is grade I diastolic dysfunction. Global hypokinesis of the left ventricle. Right Ventricle Right ventricular chamber dimension is normal. Right ventricular systolic function is reduced. Left Atria Left atrial chamber dimension is mildly enlarged. Right Atria Right atrial chamber dimension is normal. Aortic Valve The aortic valve is trileaflet. There is mild aortic valve sclerosis. There is no aortic valve stenosis. There is trace aortic valve regurgitation. Pulmonic Valve The pulmonic valve is normal. There is no pulmonic valve stenosis. There is trace pulmonic regurgitation. Mitral Valve The mitral valve has normal leaflets. There is no mitral valve stenosis. There is mild mitral valve regurgitation. Tricuspid Valve The tricuspid valve leaflets are normal. There is no significant tricuspid valve stenosis. There is mild tricuspid valve regurgitation. Moderate pulmonary hypertension, estimated pulmonary arterial systolic pressure is 45 mmHg. Pericardium/Pleural The pericardium appears normal. There is small pericardial effusion. Inferior Vena Cava Dilated inferior vena cava with <50% collapse upon inspiration consistent with elevated right atrial pressure, 15 mmHg. Aorta The aortic root size at the sinus of Valsalva is normal. Left Ventricular Outflow Tract Name Value Normal LVOT 2D LVOT Diameter 2.2 cm LVOT Doppler
--- NOTE | 2019-03-20 02:47 | PC.NURSE ---
pt noted to be in a wide complex tachycardia no pulse pt unresponsive chest compressions started code called see code sheet
[2019-03-20] MEDS: MIDAZOLAM HCL 2 MG/2 ML VIAL (03:01)
[2019-03-20 03:04] LABS: Alveolar/Arterial O2 Gradient 641.1 mmHg; Base Excess ABG -10.6 mEq/l (+/-2.0); Carboxyhemoglobin 0.1 % THb (0-2.0); Fractional Inspired Oxygen 100 %; HCO3 ABG 14.8 mEq/l (22.0-26.0); Methemoglobin ABG 0.6 %THb (0-1.5); Oxygen Content ABG 6.5 %vol (16.0-22.0); Oxyhemoglobin 65.1 % THb (90.0-100.0); PCO2 ABG 30.6 mmHg (35.0-45.0); PO2 FiO2 Ratio Arterial Blood 0.41 %; Reduced Hemoglobin 34.2 %THb (0-5.0); pH ABG 7.302 (7.350-7.450)
[2019-03-20 03:05] LABS: PO2 ABG 41.3 mmHg (80.0-100.0)
[2019-03-20 03:06] LABS: Device NON-REBREATHER MASK; Modified Allen's Test Pass; Oxygen Saturation ABG 72.6 % (95.0-100.0); Site Drawn LEFT RADIAL
--- NOTE | 2019-03-20 03:22 | ECG_ITS ---
Measurements Intervals [place] Rate: 147 P: 66 HI: 126 QRS: 47 QRSD: 106 T: 61 QT: 312 QTc: 489 Interpretive Statements SINUS TACHYCARDIA, POSSIBLE ATRIAL FLUTTER LOW QRS VOLTAGE IN LIMB LEADS BORDERLINE T WAVE ABNORMALITY- LATERAL LEADS ABNORMAL ECG Electronically Signed On 03-20-2019 10:09:09 RESPIRATORY THERAPY ASSISTANT by Salvatore Vang D.O.
[2019-03-20 03:53] LABS: Basophils Absolute Auto 0.1 K/mm3 (0.0-0.1); Basophils Percent Auto 0.2 % (0.2-1.2); Hematocrit 24.3 % (37.0-47.0); Hemoglobin 7.8 g/dL (12.0-15.0); Immature Granulocyte Absolute 1.21 K/mm3 (0.00-0.031); Immature Granulocyte Percent A 3.5 % (0-0.5); Lymphocytes Absolute Auto 3.27 K/mm3 (0.9-3.2); Lymphocytes Percent Auto 9.5 % (18.3-44.2); Mean Corpuscular HGB Conc 32.1 g/dl (32-36); Mean Corpuscular Hemoglobin 28.2 pg (26-34); Mean Corpuscular Volume 87.7 fl (80-100); Mean Platelet Volume 9.5 fl (7.4-10.4); Monocytes Absolute Auto 1.3 K/mm3 (0.1-0.6); Monocytes Percent Auto 3.8 % (2.6-8.5); Neutrophils Absolute Auto 28.7 K/mm3 (1.3-6.7); Platelet Count Result 405 k/mm3 (150-375); Red Blood Count 2.77 M/mm3 (4.2-5.4); Red Cell Distribution Width 15.9 % (11.5-14.5); White Blood Count 34.6 K/mm3 (4.5-10.0)
[2019-03-20 03:56] LABS: Lactic Acid 2.4 mmol/L (0.7-2.1)
[2019-03-20 03:57] LABS: Phosphorus 5.3 mg/dL (2.5-4.5)
[2019-03-20 03:58] LABS: Blood Urea Nitrogen 24 mg/dL (7-17); Carbon Dioxide 18 mmol/L (22-30); Chloride 100 mmol/L (98-107); Estimated CRCL calculation 60 ml/min; Estimated Glomerular Filt Rate > 60; Glucose 127 mg/dL (65-105); Potassium 3.6 mmol/L (3.4-5.0); Sodium 134 mmol/L (137-145)
[2019-03-20 03:58] LABS: INR 1.8; Prothrombin Time 20.2 Seconds (11.1-14.7)
[2019-03-20] MEDS: MIDAZOLAM HCL 50 MG in DEXTROSE 5% 90 ML IV CONT (04:02)
--- NOTE | 2019-03-20 04:27 | P.PCNBED_ITS ---
Procedures Central Line Placement: Right IJ: Emergently Placed - (Given emergent patient conditions, temporal constraints may not have permitted and aforementioned informed consent.): Yes Central Line Date: 03/20/19 Central Line Time: 04:00 Pre-procedural Time-Out was completed immediately before starting the procedure and confirmed: Patient Identification, Site, Procedure, Patient Position and the Availability of Requisite Equipment.: Yes Patient Position: supine Patient placed on monitor/pulse ox: Yes Provider Prep: mask, sterile gown, sterile gloves, Max. sterile barrier precautions, cap, hand hygiene and emergent ? sterile barriers not used Central line prep: Povidone-Iodine 1% Ultrasound used for placement: Yes Central line lumen inserted: triple [place]: 7 Length (cm): 17 Depth of Insertion (cm): 16 Post procedure: sutured in place, good blood return, all ports aspirated, flushed, capped, tegaderm, hemostatic disc, antimicrobial disc and aseptic technique maintained throughout procedure Post procedure x-ray: tip of catheter in good position Patient tolerated procedure: well Complications: none Additional comments: Date of service of procedure was 03/20/2019 at 04:00 hrs.
--- NOTE | 2019-03-20 04:27 | P.CODEBLUE_ITS ---
Code Blue Note Code Blue Note Time Arrived at Code Blue: 0249 Initial Rhythm on Arrival: Asystole Airway Management: Initiated bagging pt on arrival Chest Compressions: In process on arrival to bedside Result of Code Blue: Pt regained consciousness Cardiac Rhythm Post Code: Atrial fibrillation w/ RVR Code Blue Summary: This is a 53 year old female who is being treated for symptomatic anemia and has untreated lung cancer who earlier tonight had a run of Vtach and we were replacing her potassium. AT approximately 02:49 the patient went into pulseless Vtach. CPR was initiated immediately. The patient was placed on the conductor yard and was found to be in a polymorphic ventricular tachycardia. She was defibrillated with 200 J of energy. At 02:51 the patient had ROSC with a palpable pulse and was found to now be in SVT. She had a blood pressure of 169/111 mm Hg. She woke up and began to complain of shortness of breath. She was given 6 mg of adenosine which did not convert her. She was then given 12 mg of Adenosine IVP with no improvement. She continued to complain of shortness of breath even though she was placed on a nonrebreather. She was given 2 mg of Versed and synchronized cardioversion was performed with 150 J of energy. Her heart rhythm and rate did not change. EKG did demonstrate atrial fibrillation w/ RVR with a HR in the 150s. She was given 10 mg of IV Cardizem bolus and started on IV cardizem drip. The patient continued to have signficant difficulty breathing. CXR was obtained and the patient was intubated and placed on mechanical ventilation for acute respiratory failure. Routine labs were obtained. I consulted Cardiology, Dr. Pruett and discussed the case at length with him. We will start digoxin IV per Dr. Pruett's recommendation for rate control. Nursing staff to update Senior Payroll Administrator, Dr. Miner. I will continue to reassess the patient overnight as needed.
[2019-03-20 04:28] LABS: Alveolar/Arterial O2 Gradient 168.9 mmHg; Base Excess ABG -4.9 mEq/l (+/-2.0); Fractional Inspired Oxygen 50 %; HCO3 ABG 19.5 mEq/l (22.0-26.0); Methemoglobin ABG 0.3 %THb (0-1.5); Oxygen Content ABG 13.8 %vol (16.0-22.0); Oxygen Saturation ABG 98.9 % (95.0-100.0); Oxyhemoglobin 97.8 % THb (90.0-100.0); PCO2 ABG 33.5 mmHg (35.0-45.0); PO2 ABG 149.9 mmHg (80.0-100.0); Reduced Hemoglobin 1.9 %THb (0-5.0); Total Hemoglobin 9.8 g/dL (12.0-18.0); pH ABG 7.382 (7.350-7.450)
[2019-03-20 04:29] LABS: Device VENTILATOR; Modified Allen's Test Pass; Site Drawn RIGHT RADIAL
--- NOTE | 2019-03-20 04:29 | P.PCNBED_ITS ---
Procedures Intubation: Intubation Date: 03/20/19 Intubation Time: 03:45 A pre- procedural Time-Out was completed immediately before starting the procedure and confirmed: Patient Identification, Site, Procedure, Patient Position and the Availability of Requisite Equipment: Yes Sedative: versed Mg given: 2 Paralytic: succinylcholine Mg given: 100 Laryngoscope: Dann ET tube size: 8 Tube secured depth (cm): 23 Tube secured location: lips Tube placement confirmation: visualized tube passing through cords, equal breath sounds bilaterally, no breath sounds over epigastrium and confirmation by capnometry Patient tolerated procedure: well Intubation complications: none Additional comments: Date of service of procedure was 03/20/2019 at 03:45 hrs.
[2019-03-20 04:30] LABS: Arterial Blood Gas PEEP 5 cmH2O; Arterial Blood Gas Tidal Volume 450 ml; Arterial Blood Gas Vent Mode CMV; Arterial Blood Gas Ventilator rate 14 /MIN
[2019-03-20] MEDS: DIGOXIN INJ 250 MCG/ML 2 ML AMP (*BKC) 500 MCG IV PUSH (06:10)
[2019-03-20 08:09] LABS: Sodium Urine Random 23 meq/L
[2019-03-20 08:16] LABS: Creatinine Urine 63.9 mg/dL
--- NOTE | 2019-03-20 08:37 | PM.PNNEP ---
Progress Note: A&P Assessment and Plan (1) Hypokalemia: Code(s): E87.6 - Hypokalemia Status: Acute Assessment and Plan: The patient has hypokalemia. Potassium is normal today. Working diagnosis is total body potassium depletion due to poor intake and more recently diarrhea. The daughter does confirm that she did not have diarrhea at home. So she may have a potassium wasting issue in the kidneys. She was on hydrochlorothiazide. This has been stopped. Magnesium level was normal over she had already received some magnesium before it was drawn. Phosphorus level is high. Urine electrolytes are pending. (2) Symptomatic anemia: Code(s): D64.9 - Anemia, unspecified Status: Acute Assessment and Plan: I talked with Dr. Jensen. etiology of the anemia is unclear. Possibly just poor manufacturing of blood cells. No indication of hemolysis. Platelet count is not low. I do not think this is TTP. (3) Lung cancer: Qualifiers: Laterality: unspecified laterality Lung location: unspecified part of lung Qualified Code(s): C34.90 - Malignant neoplasm of unspecified part of unspecified bronchus or lung Code(s): C34.90 - Malignant neoplasm of unspecified part of unspecified bronchus or lung Status: Chronic Assessment and Plan: The patient has not had any therapy for this yet as she is too weak and too sick. (4) Tachycardia: Code(s): R00.0 - Tachycardia, unspecified Status: Acute Assessment and Plan: Patient has sinus tachycardia right now. She had a ventricular arrhythmia last night described is torsade de pointe by the nurse. Electrolytes look okay now. Additional Plan Discussed with family. Subjective Date/time seen: 03/20/19 08:37 Interval history: Patient a cardiorespiratory arrest last night. She is now intubated and sedated. Daughter is in the room. Review of Systems Cardiovascular: Cardiovascular: Reports no additional cardiovascular complaints Respiratory: Respiratory: Reports no additional respiratory complaints Gastrointestinal: Gastrointestinal: Reports no additional gastrointestinal complaints Genitourinary: Genitourinary: Reports no additional female genitourinary complaints Exam Narrative: Exam Narrative: Well developed well-nourished in no acute distress Lungs mildly coarse upper airway noise. Heart regular without rub Abdomen bowel sounds positive soft nontender Extremities no edema Skin no rash Objective Data Vital Signs Vital Signs: Vital Signs - 24 hr 03/19/19 08:59 03/19/19 10:00 03/19/19 12:00 Temperature 36.6 C Pulse Rate 124 H 115 H 117 H Respiratory Rate 31 H 31 H Blood Pressure 112/80 113/70 Pulse Oximetry 100 100 03/19/19 14:00 03/19/19 16:00 03/19/19 18:00 Temperature 36.5 C Pulse Rate 123 H 128 H 129 H Respiratory Rate 30 H 23 H 34 H Blood Pressure 127/72 127/72 119/61 Pulse Oximetry 100 100 100 03/19/19 20:00 03/19/19 21:18 03/19/19 22:00 Temperature 36.8 C 37.2 C Pulse Rate 131 H 138 H 133 H Respiratory Rate 28 H 26 H Blood Pressure 128/79 Pulse Oximetry 99 100 03/20/19 00:00 03/20/19 02:00 03/20/19 03:15 Temperature 36.9 C Pulse Rate 138 H 120 H 151 H Respiratory Rate 28 H 27 H 31 H Blood Pressure 119/83 146/86 H Pulse Oximetry 100 100 96 03/20/19 03:35 03/20/19 03:45 03/20/19 04:00 Temperature 37.4 C Pulse Rate 151 H 152 H 145 H Respiratory Rate 34 H 21 H Blood Pressure 154/107 H 124/78 Pulse Oximetry 98 98 95 03/20/19 04:51 03/20/19 05:00 03/20/19 06:10 Temperature Pulse Rate 147 H 148 H 147 H Respiratory Rate 26 H Blood Pressure 94/62 L Pulse Oximetry 96 96 03/20/19 07:40 Temperature Pulse Rate 143 H Respiratory Rate Blood Pressure Pulse Oximetry 98 Intake/Output Intake/Output: Intake & Output 03/17/19 03/18/19 03/19/19 03/20/19 23:59 23:59 23:59 23:59 Intake Total 3190 2
[2019-03-20] MEDS: metroNIDAZOLE 500 MG/ISO 100ML 500 MG/100 ML BAG 100 MG IVPB (08:40)
[2019-03-20] MEDS: VANCOMYCIN ORAL 125 MG/2.5 ML SYRUP PO ×2 (08:41→11:57)
[2019-03-20] MEDS: CYANOCOBALAMIN 1,000 MCG TABLET 1000 MCG PO (08:53)
[2019-03-20] MEDS: MAGNESIUM OXIDE 400 MG TABLET PO ×2 (08:53→20:28)
[2019-03-20] MEDS: FOLIC ACID 1 MG TABLET PO (08:53)
[2019-03-20] MEDS: THERAPEUTIC MULTIVITAMINS/MINERALS TAB (*BKC) 1 TABLET PO (08:54)
[2019-03-20] MEDS: POTASSIUM CHLORIDE 20 MEQ PACKET (FOR LIQUID) 40 MEQ PO (08:54)
[2019-03-20] MEDS: THIAMINE HCL 100 MG TABLET PO (08:54)
--- NOTE | 2019-03-20 08:57 | PM.IMPN ---
Progress Note: A&P Assessment and Plan (1) Symptomatic anemia: Code(s): D64.9 - Anemia, unspecified Status: Acute Assessment and Plan: likely due to lung ca and tx 2/ hgb 7.8 (2) Arterial hypotension: Qualifiers: Hypotension type: other hypotension type Qualified Code(s): I95.89 - Other hypotension Code(s): I95.9 - Hypotension, unspecified Status: Resolved Assessment and Plan: anemia, dehydration, sepsis 2/5 FENA 2.3% c/w prerenal etiology (3) Lung cancer: Qualifiers: Laterality: unspecified laterality Lung location: unspecified part of lung Qualified Code(s): C34.90 - Malignant neoplasm of unspecified part of unspecified bronchus or lung Code(s): C34.90 - Malignant neoplasm of unspecified part of unspecified bronchus or lung Status: Chronic Assessment and Plan: poor px oncology input appreciated (4) Leukocytosis: Qualifiers: Leukocytosis type: unspecified Qualified Code(s): D72.829 - Elevated white blood cell count, unspecified Code(s): D72.829 - Elevated white blood cell count, unspecified Status: Acute Assessment and Plan: possible sepsis due to colitis vs urinary source vancomycin, cefepime, metronidazole (5) Thrombocytosis: Code(s): D47.3 - Essential (hemorrhagic) thrombocythemia Status: Acute Assessment and Plan: due to lung ca (6) Hypokalemia: Code(s): E87.6 - Hypokalemia Status: Acute Assessment and Plan: 03/20 3.6 after k-rider (7) Tachycardia: Code(s): R00.0 - Tachycardia, unspecified Status: Acute Assessment and Plan: pulseless VT early AM 2, code blue SVT did not respond to adenosine 2/6 AM Diltiazem drip cardiology to see Subjective Date/time seen: 03/20/19 08:57 Interval history: Pulseless VT 2 early AM, still sedated and on vent. Review of Systems Review of Systems: ROS unobtainable: unobtainable due to mental condition Exam Narrative: Exam Narrative: HEENT: Pupils midpoint and sluggish NECK: No JVD CHEST: coarse BS HEART: NL S1/S2, tachycardic ABDOMEN: BS+, soft, nontender, no mass, no bruits EXTREMITIES: No cyanosis, edema, or clubbing NEUROLOGIC: CN intact and symmetric to inspection. MUSCULOSKELETAL: Tone and strength symmetric. PSYCH: Alert. Oriented to person, place, and time. Objective Data Vital Signs Vital Signs: Vital Signs - 24 hr 03/19/19 08:59 03/19/19 10:00 03/19/19 12:00 Temperature 97.9 F Pulse Rate 124 H 115 H 117 H Respiratory Rate 31 H 31 H Blood Pressure 112/80 113/70 Pulse Oximetry 100 100 03/19/19 14:00 03/19/19 16:00 03/19/19 18:00 Temperature 97.7 F Pulse Rate 123 H 128 H 129 H Respiratory Rate 30 H 23 H 34 H Blood Pressure 127/72 127/72 119/61 Pulse Oximetry 100 100 100 03/19/19 20:00 03/19/19 21:18 03/19/19 22:00 Temperature 98.2 F 98.9 F Pulse Rate 131 H 138 H 133 H Respiratory Rate 28 H 26 H Blood Pressure 128/79 Pulse Oximetry 99 100 03/20/19 00:00 03/20/19 02:00 03/20/19 03:15 Temperature 98.5 F Pulse Rate 138 H 120 H 151 H Respiratory Rate 28 H 27 H 31 H Blood Pressure 119/83 146/86 H Pulse Oximetry 100 100 96 03/20/19 03:35 03/20/19 03:45 03/20/19 04:00 Temperature 99.4 F Pulse Rate 151 H 152 H 145 H Respiratory Rate 34 H 21 H Blood Pressure 154/107 H 124/78 Pulse Oximetry 98 98 95 03/20/19 04:51 03/20/19 05:00 03/20/19 06:10 Temperature Pulse Rate 147 H 148 H 147 H Respiratory Rate 26 H Blood Pressure 94/62 L Pulse Oximetry 96 96 03/20/19 07:40 Temperature Pulse Rate 143 H Respiratory Rate Blood Pressure Pulse Oximetry 98 Intake/Output Intake/Output: Intake & Output 03/17/19 03/18/19 03/19/19 03/20/19 23:59 23:59 23:59 23:59 Intake Total 3190 2625 100 Output Total 800 1100 400 Balance 2390 1525 -300 Meds/Results Medications: Active Medications
[2019-03-20 09:03] LABS: Troponin I 0.027 ng/mL (0.000-0.034)
--- NOTE | 2019-03-20 10:24 | ECG_ITS ---
Measurements Intervals [place] Rate: 140 P: 67 VT: 121 QRS: 76 QRSD: 96 T: 65 QT: 328 QTc: 502 Interpretive Statements SINUS TACHYCARDIA ATRIAL PREMATURE COMPLEXES LOW QRS VOLTAGE IN LIMB LEADS CANNOT RULE OUT SEPTAL INFARCT, AGE INDETERMINATE BORDERLINE T WAVE ABNORMALITY- INF/LAT LEADS ABNORMAL ECG Electronically Signed On 03-20-2019 11:46:36 SUPERVISING LIBRARIAN by Salvatore Vang D.O.
--- NOTE | 2019-03-20 10:32 | PM.CNCAR ---
Assessment and Plan Assessment and plan (1) Cardiac arrest: Code(s): I46.9 - Cardiac arrest, cause unspecified Status: Acute Assessment and Plan: Initial cardiac arrest consistent with torsades de pointes. Resuscitated and patient was awake after resuscitation but she became more and severely short of breath shortly thereafter. She was subsequently intubated. Rhythm was severely tachycardic. Measures were taken to try to slow her heart rate including treatment for possible atrial fibrillation with diltiazem, cardioversion. Adenosine was also used. Heart rate did slow but it has been in the 140s consistently and currently appears to be in sinus rhythm/tachycardia. She should keep her potassium at least above 4 and so an additional 40 mEq of IV potassium will be given. Will check an EKG now. 2D echocardiogram Doppler will be ordered and reviewed. The Metoprolol 5 mg IV Q 6 hours as blood pressure tolerates is also written. I did talk to Dr. Bourne and she will be having a CT scan of her chest to rule out for PE or other etiology of her persistent tachycardia. (2) Hypokalemia: Code(s): E87.6 - Hypokalemia Status: Acute Assessment and Plan: As above. Keep potassium greater than 4 (3) Symptomatic anemia: Code(s): D64.9 - Anemia, unspecified Status: Acute Assessment and Plan: Status post several units of blood but still significantly anemic. Workup per chip tuner and other services (4) Lung cancer: Qualifiers: Laterality: unspecified laterality Lung location: unspecified part of lung Qualified Code(s): C34.90 - Malignant neoplasm of unspecified part of unspecified bronchus or lung Code(s): C34.90 - Malignant neoplasm of unspecified part of unspecified bronchus or lung Status: Chronic Assessment and Plan: Recent diagnosis History of Present Illness History of Present Illness Consult date/time: 03/20/19 10:32 Requesting physician: Kobe Martinez MD Consult reason: Other (Cardiac arrest, torsades de Pointes) Reason For Visit: Anemia Narrative: Date of service 03/20/2019 History: Patient is a 53-year-old male who was recently diagnosed with lung cancer. She she was recently in [place] but had been discharged to [facility]. She was found to be hypotensive and very tired and weak and was brought back to the hospital here for further workup evaluation. Found to have severe anemia with a hemoglobin of 4.8. She has received several blood transfusions. Via the history there has been no recent chest pain, lightheadedness, dizziness shortness of breath or black or bloody stools. She has been hypokalemic. Last night she did go into classic torsades de pointes and resuscitated by Dr. Martinez. She shortly thereafter though went into what appears to be flash pulmonary edema and severe shortness of breath and tachycardia. Tachycardia was thought to be atrial fibrillation in etiology and she was started on diltiazem, attempted cardioversion and adenosine without much success. Digoxin was even given. In my review of these strips, his likely to be sinus tachycardia although cannot exclude atrial flutter. She is currently intubated and still tachycardic. Cardiology consultation was requested for further evaluation. Her potassium has been partially replaced but is still slightly low at 3.6 this morning. Magnesium is normal. Review of Systems Review of Systems: All systems reviewed & are unremarkable except as noted in HPI and below ROS unobtainable: unobtainable due to endotracheal tube Constitutional: Constitutional: Denies chills Eyes: Eyes: Reports no additional eye complaints ENT: Denies epistaxis Cardiovascular: Cardiovascular: Denies leg edema Respiratory: Respiratory: Denies hemoptysis Gastrointestinal: Gastrointestinal: Denies melena Genitourinary: Genitourinary: Denies hematuria Musculoskeletal: Musculoskeletal: Reports
--- NOTE | 2019-03-20 11:08 | PCDIET ---
ICU Rounding Note: Patient had cardiac arrest and is now intubated. MD plans to initiate enteral feedings once heart rate improved. Recommend Vital 1.5 at goal of 45mL/hr x 22 hours/day for 1485kcal, 66g protein and 756mL free water. Would suggest 30mL water flush every 4 hours at this time. Last recorded weight is 75kg which is increased. I/O positive. Bowel Motility: +Diarrhea reported with BM x 8 so far today. Labs Reviewed: Glu (127), BUN (24), Na (134), Ca (8.0), PO4 (5.3) Meds Noted: Proventil, Maxipime, Questran, Vitamin B12, Fentanyl, Folic Acid, Flagyl, Versed, Protonix, IV and liquid KCl, Vitamin B1, Vancomycin Additional Notes: No documented skin breakdown. Following daily in ICU rounds. Assessing/reassessing every 3 days.
--- NOTE | 2019-03-20 11:15 | WPDINTPN ---
Progress Note: A&P Assessment and Plan (1) Cardiac arrest: Code(s): I46.9 - Cardiac arrest, cause unspecified Status: Acute Assessment and Plan: patient had cardiac arrest overnight consistent with torsades, went into AFib RVR post resuscitation and then SVT. Patient was cardioverted and given adenosine without success. Patient placed on diltiazem infusion but continues to remain tachycardic. Patient was also given digoxin overnight. - Appreciate Cardiology evaluation recommendations, patient to be started on metoprolol if blood pressures tolerate - significant tachycardia, given history of lung cancer, will obtain CT scan of the chest to rule out PE - echocardiogram has been done this morning, awaiting report - will keep potassium above 4.0 and magnesium above 2.0 (2) Acute respiratory failure: Code(s): J96.00 - Acute respiratory failure, unspecified whether with hypoxia or hypercapnia Status: Acute Assessment and Plan: Post cardiac arrest patient was having difficulty breathing, found to have pulmonary edema, requiring intubation on 03/20/2019 - chest x-ray and ABGs reviewed, ventilator adjusted - start bronchodilators - CT scan of the chest On 03/20/2019 did not show any pulmonary emboli, 1.4 cm nodule in the left lower lung lobe suspicious for primary bronchogenic carcinoma, mediastinal and left supraclavicular lymphadenopathy and bilateral adrenal masses consist with metastatic disease. A liver mass and splenic masses suspicious for metastatic disease. (3) Arterial hypotension: Qualifiers: Hypotension type: other hypotension type Qualified Code(s): I95.89 - Other hypotension Code(s): I95.9 - Hypotension, unspecified Status: Resolved Assessment and Plan: patient has been hypotensive likely related to severe tachycardia, hypovolemia, Cardizem infusion, sedation. - Patient has a central line, will maintain mean arterial pressure is greater than 65 mmHg, Levophed if required - lactic acid was 2.4 this morning, will repeat lactic acid (4) Symptomatic anemia: Code(s): D64.9 - Anemia, unspecified Status: Acute Assessment and Plan: Anemia of chronic disease versus bone marrow disease. Patient does have a poor p.o intake but anemia appear to be too severe for anemia of chronic disease .Records from [facility] reviewed . Patient has early recent admission 03/07/2019 and had received multiple blood transfusions for hemoglobin of 4. EGD was also done which was negative. Patient refused colonoscopy though she has been having some diarrhea. - She has received 5 units of packed RBC since admission. - d/w heme, may need bone marrow bx. (5) Lung cancer: Qualifiers: Laterality: unspecified laterality Lung location: unspecified part of lung Qualified Code(s): C34.90 - Malignant neoplasm of unspecified part of unspecified bronchus or lung Code(s): C34.90 - Malignant neoplasm of unspecified part of unspecified bronchus or lung Status: Chronic Assessment and Plan: As per records from [facility] patient has on on non differentiated non small-cell lung cancer diagnose 01/22/2019. She has Mets to the adrenal bilaterally which have increased in size. . she was scheduled to start outpatient chemotherapy but she did not keep her appointment. (6) Leukocytosis: Qualifiers: Leukocytosis type: unspecified Qualified Code(s): D72.829 - Elevated white blood cell count, unspecified Code(s): D72.829 - Elevated white blood cell count, unspecified Status: Acute Assessment and Plan: The white count is elevated at 30,000 though there is no clear source of infection. patient also presented with diarrhea - blood cultures negative x2 - wound culture negative - stool cultures pending - C diff negative - chest x-ray shows pulmonary vascular congesti
[2019-03-20] MEDS: CHOLESTYRAMINE LIGHT 4 GM POWD.PACK PO ×2 (11:45→17:28)
[2019-03-20] MEDS: METOPROLOL TARTRATE INJ 5 MG/5 ML VIAL IV PUSH ×3 (11:46→23:40)
[2019-03-20] MEDS: SODIUM CHLORIDE 0.9% IV 1,000 ML 100 ML IV CONT (11:57)
[2019-03-20 12:11] LABS: Troponin I 0.021 ng/mL (0.000-0.034)
[2019-03-20] MEDS: MIDAZOLAM HCL 50 MG in DEXTROSE 5% 90 ML 12 MG IV CONT (12:25)
--- NOTE | 2019-03-20 13:23 | WPDONCPN ---
Progress Note: A/P - Additional Plan Profound normocytic anemia of unclear etiology. Sully test negative. She has no evidence of bleeding. Hemoccult stool came back negative. Plan was for bone marrow biopsy today but now patient is intubated. We will continue to transfuse on as needed basis. Case was discussed with the daughter. Lung cancer. Status post lymph node biopsy. Patient is not a candidate for chemotherapy given her performance status at this time. Hypokalemia. Secondary to diarrhea. Patient is on Flagyl. The potassium level has improved. Respiratory failure. Patient is intubated and sedated. - Time Spent With Patient Total time spent is greater than 50% in coordination of care (as documented) at patient's floor/unit and/or counseling patient: 15 - 25 minutes Subjective Interval history: Normocytic anemia Lung cancer Review of Systems - Review of Systems Patient is now intubated and sedated. Case discussed with the daughter present in the room. - Neurologic Reports system reviewed and no additional complaints, except as documented, Denies abnormal gait, Denies behavioral changes Exam Vital signs: Sarah Jefferson. Assessment of coma and impaired consciousness. A practical scale. Lancet 1974; 2:81-4. Narrative: Lungs are clear to auscultation bilaterally Cardiovascular regular rate rhythm no murmurs Abdomen soft nontender nondistended Extremities no edema PN: Objective Data - Labs CBC & Chem 7: 03/20/19 03:32 03/20/19 03:37 Labs: Laboratory Results - last 24 hr 03/19/19 03/19/19 03/19/19 18:15 18:15 18:15 WBC RBC Hgb Hct MCV MCH MCHC RDW Plt Count MPV Immature Gran % (Auto) Neut % (Auto) Lymph % (Auto) Hendry % (Auto) Eos % (Auto) Baso % (Auto) Lymph # (Auto) Hendry # (Auto) Eos # (Auto) Baso # (Auto) Abs Immat Gran (auto) Absolute Neuts (auto) Absolute Nucleated RBC Nucleated RBC % PT INR Puncture Site ABG pH ABG pCO2 ABG pO2 ABG PO2/FiO2 Ratio ABG HCO3 ABG O2 Saturation ABG O2 Content ABG Base Excess A-a Gradient Oxyhemoglobin Carboxyhemoglobin Methemoglobin Reduced Hemoglobin Total Hemoglobin O2 Delivery Device O2 Liters/Min Minute Volume Vent Rate Vent Mode FiO2 Tidal Volume PEEP Peak Inspir Pressure Pressure Support Sodium 135 L Potassium 2.6 L* Chloride 102 Carbon Dioxide 19 L BUN 25 H Creatinine 0.80 Estim Creat Clear Calc 67 Estimated GFR > 60 Glucose 108 H Lactic Acid Calcium 7.8 L Phosphorus Magnesium 0.9 L Troponin I TSH (Reflex) 2.040 Random Cortisol 36.40 Ur Random Sodium Urine Creatinine 03/20/19 03/20/19 03/20/19 02:59 03:32 03:32 WBC 34.6 H RBC 2.77 L Hgb 7.8 L Hct 24.3 L MCV 87.7 MCH 28.2 MCHC 32.1 RDW 15.9 H Plt Count 405 H MPV 9.5 Immature Gran % (Auto) 3.5 H Neut % (Auto) 83.0 H Lymph % (Auto) 9.5 L Hendry % (Auto) 3.8 Eos % (Auto) 0.0 Baso % (Auto) 0.2 Lymph # (Auto) 3.27 H Hendry # (Auto) 1.3 H Eos # (Auto) 0.0 Baso # (Auto) 0.1 Abs Immat Gran (auto) 1.21 H Absolute Neuts (auto) 28.7 H Absolute Nucleated RBC 0.0 Nucleated RBC % 0.0 PT 20.2 H INR 1.8 Puncture Site Left radial ABG pH 7.302 L ABG pCO2 30.6 L ABG pO2 41.3 L* ABG PO2/FiO2 Ratio 0.41 ABG HCO3 14.8 L ABG O2 Saturation 72.6 L* ABG O2 Content 6.5 L ABG Base Excess -10.6 A-a Gradient 641.1 Oxyhemoglobin 65.1 L Carboxyhemoglobin 0.1 Methemoglobin 0.6 Reduced Hemoglobin 34.2 H Total Hemoglobin 7.0 L* O2 Delivery Device Non-rebreather mask O2 Liters/Min 15.0 Minute Volume Vent Rate Vent Mode FiO2 100 Tidal Volume PEEP Peak Inspir Pressure Pressure Support Sodium
[2019-03-20] MEDS: IPRATROPIUM BR 0.02% INH SOLN 0.5 MG/2.5 ML VIAL INHALATION ×2 (13:51→19:44)
--- NOTE | 2019-03-20 14:09 | WPDINFPN2 ---
Progress Note: A&P Assessment and Plan (1) Leukocytosis: Qualifiers: Leukocytosis type: unspecified Qualified Code(s): D72.829 - Elevated white blood cell count, unspecified Code(s): D72.829 - Elevated white blood cell count, unspecified Status: Acute Assessment and Plan: 1. Chronic (2 months if not more) leukocytosis, due to lung cancer 2. Hypotension - HCAP? adrenal insufficiency? 3. Report of + C diff test, I reviewed all faxed records and talked to [facility] staff (there 02/27 -- > 03/19), and no vanc given and no testing for C diff. The pancolitis seen on CT is also chronic though worse now. 4. NSCLC, metastatic to anterior mediastinum and bilateral adrenals REC C diff test here if liquid or unformed stool - she did receive PipTazo for brief course at [facility] last month. BCs in process. Cefepime #1. Consider AM cortisol. Discussed Subjective Date/time seen: 03/20/19 14:09 Objective Data Vital Signs Vital Signs: Vital Signs - 24 hr 03/19/19 16:00 03/19/19 18:00 03/19/19 20:00 Temperature 36.5 C 36.8 C Pulse Rate 128 H 129 H 131 H Respiratory Rate 23 H 34 H 28 H Blood Pressure 127/72 119/61 128/79 Pulse Oximetry 100 100 99 03/19/19 21:18 03/19/19 22:00 03/20/19 00:00 Temperature 37.2 C 36.9 C Pulse Rate 138 H 133 H 138 H Respiratory Rate 26 H 28 H Blood Pressure Pulse Oximetry 100 100 03/20/19 02:00 03/20/19 03:15 03/20/19 03:35 Temperature Pulse Rate 120 H 151 H 151 H Respiratory Rate 27 H 31 H 34 H Blood Pressure 119/83 146/86 H 154/107 H Pulse Oximetry 100 96 98 03/20/19 03:45 03/20/19 04:00 03/20/19 04:51 Temperature 37.4 C Pulse Rate 152 H 145 H 147 H Respiratory Rate 21 H Blood Pressure 124/78 Pulse Oximetry 98 95 96 03/20/19 05:00 03/20/19 06:10 03/20/19 07:40 Temperature Pulse Rate 148 H 147 H 143 H Respiratory Rate 26 H Blood Pressure 94/62 L Pulse Oximetry 96 98 03/20/19 11:30 03/20/19 11:46 Temperature Pulse Rate 133 H 127 H Respiratory Rate Blood Pressure Pulse Oximetry 99 Intake/Output Intake/Output: Intake & Output 03/17/19 03/18/19 03/19/19 03/20/19 23:59 23:59 23:59 23:59 Intake Total 3190 2625 300 Output Total 800 1100 400 Balance 2390 1525 -100 Meds/Results Medications: Active Medications Generic Name Dose Route Start Last Admin Trade Name Freq PRN Reason Stop Dose Admin Hydrocodone Bitart/Acetaminophen 1 tab 03/18/19 11:40 [place] 5-325 Mg PO Q6H PRN Pain Budesonide/Formoterol Fumarate 2 puff 03/18/19 20:00 03/20/19 08:00 Symbicort 160-4.5 Mcg (*Sp) Inhaler INHALATION Not Given Q12HRT [facility] Cholestyramine Resin 4 gm 03/19/19 18:00 03/20/19 11:45 Questran Light Packet PO 4 gm BID@1000,1800 DAGOBERTO Administration Cyanocobalamin 1,000 mcg 03/19/19 09:00 03/20/19 08:53 Vitamin B-12 Tab PO 04/18/19 09:01 1,000 mcg DAILY DAGOBERTO Administration Folic Acid 1 mg 03/19/19 09:00 03/20/19 08:53 Folic Acid PO 1 mg DAILY DAGOBERTO Administration Metronidazole 500 mg in 100 mls @ 100 mls/hr 03/19/19 14:00 03/20/19 08:40 Flagyl 500 Mg/Iso Soln 100 Ml IVPB 100 mls/hr Q8HR DAGOBERTO Administration Midazolam HCl 50 mg/ Dextrose 100 mls @ 12 mls/hr 03/20/19 03:35 03/20/19 12:25 IV CONT 6 mg/hr .Q8H20M DAGOBERTO 12 mls/hr Administration Protocol 6 MG/HR Fentanyl Citrate 2,500 mcg/ 250 mls @ 20 mls/hr 03/20/19 03:35 03/20/19 05:00 Sodium Chloride IV CONT 200 mcg/hr .[id number] DAGOBERTO 20 mls/hr Titration Protocol 200 MCG/HR Diltiazem HCl 100 mg in 100 mls @ 10 mls/hr 03/20/19 03:40 03/20/19 11:48 Cardizem 100 Mg/D5w 100 Ml IV CONT 15 mg/hr .Q10H DAGOBERTO 15 mls/hr Administration Protocol 10 MG/HR Cefepime HCl 1 gm in 50 mls @ 100 mls/hr 03/20/19 07:30 03/20/19 08:46 Maxipime 1 Gm/D5w 50 Ml IVPB 100 mls/hr Q8HR DAGOBERTO Administration Sodium Chloride 1,000 mls @ 100 mls/hr 03/20/19 11
[2019-03-20] MEDS: NOREPINEPHRINE 8 MG/D5W 250 ML 8 MG/250 ML BAG 9.4 MG IV CONT (14:23)
[2019-03-20 14:49] LABS: Lactic Acid Reflex 0.7 mmol/L (0.7-2.1)
[2019-03-20 15:02] LABS: Troponin I 0.019 ng/mL (0.000-0.034)
[2019-03-20] MEDS: PANTOPRAZOLE 40 MG TABLET PO (17:28)
--- NOTE | 2019-03-20 19:07 | CONS_ITS ---
DATE OF CONSULTATION: 03/20/2019 REASON FOR CONSULTATION: Leukocytosis. HISTORY OF PRESENT ILLNESS: The patient is a 53-year-old female, who cannot provide any history as she is intubated and sedated. She was at [facility] in January of this year and she was found on about January 23 to have metastatic non-small cell lung cancer. She was at [facility] last month with generalized weakness and a hemoglobin of 4. She was there for approximately 1 week and my colleague Dr. Rousseau saw her while there. She received piperacillin and tazobactam briefly empirically, but he subsequently stopped this and she was discharged to [facility] in [place] for rehabilitation on approximately February 27. While there she had no testing for C. diff, nor she on any systemic antibiotics. [facility] staff called an ambulance yesterday when the patient had marked weakness and was noted to be hypotensive. She is not requiring pressors. She has had fluid resuscitation while here. Her hospital course been complicated by cardiac arrest earlier this morning. I discussed with Dr. Miner yesterday and the patient was started on enteral vancomycin along with metronidazole, cefepime was added this morning. No other events. She has had persistent tachycardia. ALLERGIES: TRAMADOL WHICH CAUSE HIVES. HABITS: Ex-smoker though record is inconsistent as far as stop date. She uses marijuana. No alcohol. PRESENT MEDICATIONS: List reviewed. No immunosuppressants. PAST MEDICAL HISTORY: Hysterectomy and hypertension. Her record indicates history of AF as well, unconfirmed. FAMILY HISTORY: Not pertinent to her present illness. SOCIAL HISTORY: Daughter is at the bedside. The patient lives locally, customarily has not had to see doctors and does not work outside the home. REVIEW OF SYSTEMS: 14-point review otherwise negative, not obtainable from the patient directly due to the intubated status. PHYSICAL EXAMINATION: GENERAL: This is a middle-aged female who appears her actual age. No acute distress. VITAL SIGNS: Afebrile. 94/62, 127, 99% on 30% FiO2 and respirations 26. SKIN: Warm and dry. No generalized rashes. NODES: No cervical adenopathy. EENT: Conjunctivae appear normal. Orally intubated. No paranasal sinus, erythema, edema, tenderness. NECK: Trachea is in the midline. No masses, thyromegaly, meningismus. LUNGS: Clear to auscultation and percussion. CARDIAC: Tachycardic regular. No ectopy. No murmurs or gallops. ABDOMEN: Mildly obese. No tenderness, mass, distention and no evidence of ascites. EXTREMITIES: Well perfused. No clubbing, cyanosis, edema. No venous varicosities. No calf tenderness. She has no indwelling pacemakers, nor central venous catheters. Chronically, she does have a right IJ triple-lumen currently. LABORATORY DATA: Blood cultures from March 18, no growth so far. Her MRSA screen same-day negative. Urine culture obtained yesterday less than 10,000 colonies, not further identified. A C. diff assay was obtained yesterday, which was nonreactive. White count 30.4 initially, 34.6 today, hemoglobin 7.8, platelets 405, left shift on differential. Blood gases 7.38, 34, 150 on the noted ventilator settings. Sodium 134, potassium 3.6, CO2 is 18, BUN 24, creatinine 0.9, glucose 127. Lactate high, phosphorus high. Calcium low. Her urinalysis, hematuria, and 51 to 75 white cells. RADIOLOGY: Her initial chest x-ray, atelectasis in mid to lower lung zones. This is repeated today, stable moderate pulmonary edema. A CT of the chest, abdomen, and pelvis was just completed showing mild emphysema, pulmonary edema findings, atelectasis, 1.4 cm left lower lobe nodule, mediastinal left supraclavicular adenopathy, OGD. Right hepatic lob
[2019-03-20] MEDS: MONTELUKAST SODIUM 10 MG TABLET PO (20:28)
[2019-03-20] MEDS: MIDAZOLAM HCL 50 MG in DEXTROSE 5% 90 ML 10 MG IV CONT (20:29)
[2019-03-21] VITALS (33 sets, daily range): BP systolic 89–105; BP diastolic 56–70; PULSE 107–139; RESP 14–21; TEMP 36.6–37.8; O2SAT 94–100
[2019-03-21 00:13] LABS: Glucose Point of Care 94 (65-105)
[2019-03-21] MEDS: IPRATROPIUM BR 0.02% INH SOLN 0.5 MG/2.5 ML VIAL INHALATION ×4 (02:07→20:25)
[2019-03-21 04:47] LABS: Alveolar/Arterial O2 Gradient 90.9 mmHg; Base Excess ABG -5.4 mEq/l (+/-2.0); Carboxyhemoglobin 0.3 % THb (0-2.0); Fractional Inspired Oxygen 30 %; Methemoglobin ABG 0.7 %THb (0-1.5); Oxygen Content ABG 11.1 %vol (16.0-22.0); Oxygen Saturation ABG 96.4 % (95.0-100.0); Oxyhemoglobin 94.1 % THb (90.0-100.0); PCO2 ABG 32.6 mmHg (35.0-45.0); PO2 ABG 84.7 mmHg (80.0-100.0); PO2 FiO2 Ratio Arterial Blood 2.82 %; Reduced Hemoglobin 4.9 %THb (0-5.0); Total Hemoglobin 8.3 g/dL (12.0-18.0); pH ABG 7.383 (7.350-7.450)
[2019-03-21 04:48] LABS: Device VENTILATOR; Modified Allen's Test Pass; Site Drawn RIGHT BRACHIAL
[2019-03-21 04:49] LABS: Arterial Blood Gas PEEP 8 cmH2O; Arterial Blood Gas Pressure Support 0 cmH2O; Arterial Blood Gas Tidal Volume 450 ml; Arterial Blood Gas Vent Mode CMV; Arterial Blood Gas Ventilator rate 14 /MIN
[2019-03-21] MEDS: NOREPINEPHRINE 8 MG/D5W 250 ML 8 MG/250 ML BAG 5.6 MG IV CONT (05:35)
[2019-03-21] MEDS: METOPROLOL TARTRATE INJ 5 MG/5 ML VIAL IV PUSH ×4 (05:36→23:58)
[2019-03-21 06:02] LABS: Hematocrit 22.8 % (37.0-47.0); Hemoglobin 7.4 g/dL (12.0-15.0); Mean Corpuscular HGB Conc 32.5 g/dl (32-36); Mean Corpuscular Hemoglobin 28.2 pg (26-34); Mean Platelet Volume 9.4 fl (7.4-10.4); Platelet Count Result 346 k/mm3 (150-375); Red Blood Count 2.62 M/mm3 (4.2-5.4); Red Cell Distribution Width 16.3 % (11.5-14.5); White Blood Count 33.9 K/mm3 (4.5-10.0)
[2019-03-21 06:15] LABS: Lactic Acid 0.8 mmol/L (0.7-2.1)
[2019-03-21 06:16] LABS: Blood Urea Nitrogen 30 mg/dL (7-17); Calcium 8.3 mg/dL (8.4-10.2); Carbon Dioxide 20 mmol/L (22-30); Chloride 103 mmol/L (98-107); Estimated CRCL calculation 45 ml/min; Estimated Glomerular Filt Rate 48; Glucose 94 mg/dL (65-105); Magnesium 1.5 mg/dL (1.6-2.3); Phosphorus 6.1 mg/dL (2.5-4.5); Potassium 3.2 mmol/L (3.4-5.0); Sodium 137 mmol/L (137-145)
[2019-03-21 06:22] LABS: Albumin Level 2.4 g/dL (3.5-5.1); Blood Urea Nitrogen 30 mg/dL (7-17); Calcium 8.2 mg/dL (8.4-10.2); Carbon Dioxide 20 mmol/L (22-30); Chloride 105 mmol/L (98-107); Estimated CRCL calculation 42 ml/min; Estimated Glomerular Filt Rate 44; Glucose 95 mg/dL (65-105); Phosphorus 6.1 mg/dL (2.5-4.5); Potassium 3.2 mmol/L (3.4-5.0); Sodium 137 mmol/L (137-145)
[2019-03-21] MEDS: MAGNESIUM SULF 4 GM/WATER100ML 4 GM/100 ML BAG IVPB (08:09)
[2019-03-21] MEDS: SODIUM CHLORIDE 0.9% IV 500 ML IV CONT (08:22)
[2019-03-21] MEDS: FOLIC ACID 1 MG TABLET PO (08:24)
[2019-03-21] MEDS: MAGNESIUM OXIDE 400 MG TABLET PO ×2 (08:24→20:00)
[2019-03-21] MEDS: CYANOCOBALAMIN 1,000 MCG TABLET 1000 MCG PO (08:24)
[2019-03-21] MEDS: CHOLESTYRAMINE LIGHT 4 GM POWD.PACK PO ×2 (08:25→17:18)
[2019-03-21] MEDS: THERAPEUTIC MULTIVITAMINS/MINERALS TAB (*BKC) 1 TABLET PO (08:25)
[2019-03-21] MEDS: POTASSIUM CHLORIDE 20 MEQ PACKET (FOR LIQUID) 40 MEQ PO ×2 (08:25→17:18)
[2019-03-21] MEDS: THIAMINE HCL 100 MG TABLET PO (08:25)
--- NOTE | 2019-03-21 08:33 | PM.PNCARD ---
Progress Note: A&P Additional Plan VFib arrest in the setting of metastatic non-small cell lung cancer and profound normocytic anemia. Patient was also hypokalemic at the time of the arrest. Seems to be tolerating metoprolol 50 mg q.12 hours for the time being which will help her functional sinus tachycardia. Levophed is being weaned. One might consider using Corlanor if desires to further reduce her sinus rate. It must be remembered that this is a physiologic, not pathologic tachycardia. Efforts to reduce heart rate with diltiazem and digoxin yesterday were not successful as 1 would expect since this was sinus tachycardia, not atrial fibrillation. Presumably when she was markedly tachycardic there was consideration that this could of been AVNRT which appears not to have been the case Time Spent With Patient Time with patient: 15 - 25 minutes Subjective Date/time seen: Date of service: 03/21/19 08:33 Interval history: Follow-up visit for VFib arrest History of metastatic non-small cell lung carcinoma Profound normocytic anemia etiology as yet undetermined. Left ventricular systolic dysfunction noted on echocardiogram following resuscitation Sinus tachycardia responding as expected to metoprolol. Exam Const: Other: Intubated black female in the ICU sedated Eyes: Sclera: sclerae normal Pupils: Equal, round and reactive pupils present Neck: Thyroid: thyroid normal Resp: Other: Breath sounds relatively clear anteriorly, patient intubated Cardio: Rate: regular rate and tachycardic Rhythm: regular rhythm Other: No murmur no rub GI: Auscultation: normal bowel sounds Skin: General skin exam: normal color Extrem: General: normal to inspection Objective Data Vital Signs Vital Signs: Vital Signs - 24 hr 03/20/19 10:00 03/20/19 11:30 03/20/19 11:46 Temperature Pulse Rate 140 H 133 H 127 H Respiratory Rate 20 Blood Pressure 87/63 L Pulse Oximetry 98 99 03/20/19 12:00 03/20/19 13:50 03/20/19 14:00 Temperature 37.4 C Pulse Rate 131 H 133 H 132 H Respiratory Rate 21 H 20 20 Blood Pressure 77/49 L 93/60 L Pulse Oximetry 98 98 98 03/20/19 16:00 03/20/19 17:30 03/20/19 18:00 Temperature 37.6 C H Pulse Rate 124 H 132 H 120 H Respiratory Rate 22 H 19 Blood Pressure 106/58 L 106/62 Pulse Oximetry 97 98 97 03/20/19 19:39 03/20/19 19:55 03/20/19 20:00 Temperature 37.8 C H Pulse Rate 122 H 120 H 126 H Respiratory Rate 20 20 19 Blood Pressure 108/62 Pulse Oximetry 98 98 03/20/19 22:00 03/20/19 22:55 03/20/19 23:40 Temperature Pulse Rate 119 H 114 H 115 H Respiratory Rate 18 Blood Pressure 104/59 L Pulse Oximetry 99 100 03/21/19 00:00 03/21/19 02:00 03/21/19 02:08 Temperature 37.3 C Pulse Rate 110 H 110 H 111 H Respiratory Rate 18 18 20 Blood Pressure 105/66 98/59 L Pulse Oximetry 100 100 100 03/21/19 04:00 03/21/19 04:21 03/21/19 05:36 Temperature 36.8 C Pulse Rate 114 H 115 H 116 H Respiratory Rate 18 Blood Pressure 97/57 L Pulse Oximetry 100 100 03/21/19 05:54 03/21/19 06:00 03/21/19 07:59 Temperature Pulse Rate 107 H 112 H 108 H Respiratory Rate 17 14 Blood Pressure 94/58 L Pulse Oximetry 100 Intake/Output Intake/Output: Intake & Output 03/18/19 03/19/19 03/20/19 03/21/19 23:59 23:59 23:59 23:59 Intake Total 3190 2625 1950 531 Output Total 800 1100 650 600 Balance 2390 1525 1300 -69 Meds/Results Medications: Active Medications Generic Name Dose Route Start Last Admin Trade Name Freq PRN Reason Stop Dose Admin Hydrocodone Bitart/Acetaminophen 1 tab 03/18/19 11:40 [place] 5-325 Mg PO Q6H PRN Pain Budesonide/Formoterol Fumarate 2 puff 03/18/19 20:00 03/20/19 08:00 Symbicort 160-4.5 Mcg (*Sp) Inhaler INHALATION Not Given Q12HRT [facility] Cholestyramine Resin 4 gm 03/19/19 18:00 03/21/19 08:25 Questran Light Packet PO 4 gm BID@1000,1800 [facility] Administration Cyanocobalamin 1,000
[2019-03-21 09:01] LABS: Blood Urea Nitrogen 31 mg/dL (7-17); Calcium 8.2 mg/dL (8.4-10.2); Carbon Dioxide 19 mmol/L (22-30); Chloride 103 mmol/L (98-107); Estimated CRCL calculation 45 ml/min; Estimated Glomerular Filt Rate 48; Glucose 94 mg/dL (65-105); Potassium 3.3 mmol/L (3.4-5.0); Sodium 138 mmol/L (137-145)
--- NOTE | 2019-03-21 09:55 | PM.PNNEP ---
Progress Note: A&P Assessment and Plan (1) Hypokalemia: Code(s): E87.6 - Hypokalemia Status: Acute Assessment and Plan: The patient has hypokalemia. Potassium is low today. She has not had a bowel movement since yesterday morning. So she is not having diarrhea any more. Magnesium level was low.. Phosphorus level is high. Urine electrolytes are pending. Urine sodium is a bit low at 23. The urine potassium more ordered day before yesterday is not back yet. She has a history of hypertension at home and so could have some sort of mineralocorticoid excess syndrome or Santos, especially with her metastatic lung cancer. She is so sick right now it is hard to sort all of this out. So for now will just supplement potassium and magnesium per levels and evaluate this when she gets better. (2) Symptomatic anemia: Code(s): D64.9 - Anemia, unspecified Status: Acute Assessment and Plan: I talked with Dr. Jensen. etiology of the anemia is unclear. Possibly just poor manufacturing of blood cells. No indication of hemolysis. Platelet count is not low. I do not think this is TTP. (3) Lung cancer: Qualifiers: Laterality: unspecified laterality Lung location: unspecified part of lung Qualified Code(s): C34.90 - Malignant neoplasm of unspecified part of unspecified bronchus or lung Code(s): C34.90 - Malignant neoplasm of unspecified part of unspecified bronchus or lung Status: Chronic Assessment and Plan: The patient has not had any therapy for this yet as she is too weak and too sick. (4) Tachycardia: Code(s): R00.0 - Tachycardia, unspecified Status: Acute Assessment and Plan: Patient has sinus tachycardia right now. She had a ventricular arrhythmia last night described is torsade de pointe by the nurse. Electrolytes look okay now. (5) Acute kidney failure, unspecified: Code(s): N17.9 - Acute kidney failure, unspecified Status: Acute Assessment and Plan: Patient has an elevated creatinine. This could be from her hypotension or from contrast. Either 1 of those a reversible. And already her creatinine is a little bit better now. Are normal on her CT. Additional Plan Subjective Date/time seen: 03/21/19 09:55 Interval history: Patient looks comfortable. She is now intubated and sedated. She developed hypotension and so is on pressors now. Daughter is in the room. Review of Systems Cardiovascular: Cardiovascular: Reports no additional cardiovascular complaints Respiratory: Respiratory: Reports no additional respiratory complaints Gastrointestinal: Gastrointestinal: Reports no additional gastrointestinal complaints Genitourinary: Genitourinary: Reports no additional female genitourinary complaints Exam Narrative: Exam Narrative: Well developed well-nourished in no acute distress Lungs mildly coarse upper airway noise. Heart regular without rub Abdomen bowel sounds positive soft nontender Extremities trace edema Skin no rash Objective Data Vital Signs Vital Signs: Vital Signs - 24 hr 03/20/19 10:00 03/20/19 11:30 03/20/19 11:46 Temperature Pulse Rate 140 H 133 H 127 H Respiratory Rate 20 Blood Pressure 87/63 L Pulse Oximetry 98 99 03/20/19 12:00 03/20/19 13:50 03/20/19 14:00 Temperature 37.4 C Pulse Rate 131 H 133 H 132 H Respiratory Rate 21 H 20 20 Blood Pressure 77/49 L 93/60 L Pulse Oximetry 98 98 98 03/20/19 16:00 03/20/19 17:30 03/20/19 18:00 Temperature 37.6 C H Pulse Rate 124 H 132 H 120 H Respiratory Rate 22 H 19 Blood Pressure 106/58 L 106/62 Pulse Oximetry 97 98 97 03/20/19 19:39 03/20/19 19:55 03/20/19 20:00 Temperature 37.8 C H Pulse Rate 122 H 120 H 126 H Respiratory Rate 20 20 19 Blood Pressure 108/62 Pulse Oximetry 98 98 03/20/19 22:00 03/20/19 22:55 03/20/19 23:40 Temperature Pulse Rate 119 H 114 H 115
--- NOTE | 2019-03-21 11:05 | WPDINTPN ---
Progress Note: A&P Assessment and Plan (1) Cardiac arrest: Code(s): I46.9 - Cardiac arrest, cause unspecified Status: Acute Assessment and Plan: patient had cardiac arrest overnight consistent with torsades, went into AFib RVR post resuscitation and then SVT. Patient was cardioverted and given adenosine without success. Patient placed on diltiazem infusion but continues to remain tachycardic. Patient was also given digoxin overnight. - Appreciate Cardiology evaluation recommendations, patient to be started on metoprolol if blood pressures tolerate - patient with significant tachycardia, PE was ruled out, started on metoprolol with improvement in his heart rate but still heart rates in the 110s to 120s - appreciate cardiology following the patient - echocardiogram 03/20/2019 shows EF of 30 35%, grade 1 diastolic dysfunction, global hypokinesis of the left ventricle right ventricular function is reduced, moderate pulmonary hypertension with RVSP of 45 mmHg - will keep potassium above 4.0 and magnesium above 2.0 (2) Acute respiratory failure: Code(s): J96.00 - Acute respiratory failure, unspecified whether with hypoxia or hypercapnia Status: Acute Assessment and Plan: Post cardiac arrest patient was having difficulty breathing, found to have pulmonary edema, requiring intubation on 03/20/2019 - chest x-ray and ABGs reviewed, ventilator adjusted - start bronchodilators - CT scan of the chest On 03/20/2019 did not show any pulmonary emboli, 1.4 cm nodule in the left lower lung lobe suspicious for primary bronchogenic carcinoma, mediastinal and left supraclavicular lymphadenopathy and bilateral adrenal masses consist with metastatic disease. A liver mass and splenic masses suspicious for metastatic disease. (3) Arterial hypotension: Qualifiers: Hypotension type: other hypotension type Qualified Code(s): I95.89 - Other hypotension Code(s): I95.9 - Hypotension, unspecified Status: Resolved Assessment and Plan: patient has been hypotensive likely related to severe tachycardia, hypovolemia, sedation. - Patient has a central line, will maintain mean arterial pressure is greater than 65 mmHg, Levophed if required - lactic acid has normalized - source likely lungs, continue cefepime - appreciate infectious disease elevation and recommendation (4) Symptomatic anemia: Code(s): D64.9 - Anemia, unspecified Status: Acute Assessment and Plan: Anemia of chronic disease versus bone marrow disease. Patient does have a poor p.o intake but anemia appear to be too severe for anemia of chronic disease .Records from [facility] reviewed . Patient has early recent admission 03/07/2019 and had received multiple blood transfusions for hemoglobin of 4. EGD was also done which was negative. Patient refused colonoscopy though she has been having some diarrhea. - She has received 5 units of packed RBC since admission. - d/w heme, may need bone marrow bx. - hemoglobin trending down, will continue to monitor, hold off transfusion for now (5) Lung cancer: Qualifiers: Laterality: unspecified laterality Lung location: unspecified part of lung Qualified Code(s): C34.90 - Malignant neoplasm of unspecified part of unspecified bronchus or lung Code(s): C34.90 - Malignant neoplasm of unspecified part of unspecified bronchus or lung Status: Chronic Assessment and Plan: As per records from [facility] patient has on on non differentiated non small-cell lung cancer diagnose 01/22/2019. - Mets to the adrenal bilaterally which have increased in size, along with spleen and right hepatic lobe as mentioned in the CT abdomen pelvis as under - not a candidate currently for chemotherapy given a performance status at this time - appreciate hematology/oncology following the patient (6) Leukocytosis:
--- NOTE | 2019-03-21 11:38 | P.PNIM_ITS ---
Progress Note: A&P Assessment and Plan (1) Symptomatic anemia: Code(s): D64.9 - Anemia, unspecified Status: Acute Assessment and Plan: * likely due to lung ca and tx * 03/20 hgb 7.8 * 03/21 hgb 7.4 (2) Arterial hypotension: Qualifiers: Hypotension type: other hypotension type Qualified Code(s): I95.89 - Other hypotension Code(s): I95.9 - Hypotension, unspecified Status: Resolved Assessment and Plan: * anemia, dehydration, sepsis * 03/19 FENA 2.3% c/w prerenal etiology * 03/21 norepinephrine 3mcg, weaning (3) Lung cancer: Qualifiers: Laterality: unspecified laterality Lung location: unspecified part of lung Qualified Code(s): C34.90 - Malignant neoplasm of unspecified part of unspecified bronchus or lung Code(s): C34.90 - Malignant neoplasm of unspecified part of unspecified bronchus or lung Status: Chronic Assessment and Plan: * poor px * oncology input appreciated (4) Leukocytosis: Qualifiers: Leukocytosis type: unspecified Qualified Code(s): D72.829 - Elevated white blood cell count, unspecified Code(s): D72.829 - Elevated white blood cell count, unspecified Status: Acute Assessment and Plan: * possible sepsis due to colitis vs urinary source * vancomycin, cefepime, metronidazole (5) Thrombocytosis: Code(s): D47.3 - Essential (hemorrhagic) thrombocythemia Status: Acute Assessment and Plan: * due to lung ca (6) Hypokalemia: Code(s): E87.6 - Hypokalemia Status: Acute Assessment and Plan: * 2 3.6 after k-rider * 03/21 3.3, supplement (7) Tachycardia: Code(s): R00.0 - Tachycardia, unspecified Status: Acute Assessment and Plan: * pulseless VT early AM 03/20, code blue * SVT did not respond to adenosine 03/20 AM * Metoprolol maintaining HR 110s-120s Subjective Date/time seen: 03/21/19 11:38 Interval history: Sedated on vent. Review of Systems Review of Systems: ROS unobtainable: unobtainable due to endotracheal tube and unobtainable due to mental status Exam 2 Narrative: Exam Narrative: HEENT: Pupils midpoint and sluggish NECK: No JVD CHEST: coarse BS HEART: NL S1/S2, tachycardic ABDOMEN: BS+, soft, nontender, no mass, no bruits EXTREMITIES: No cyanosis, edema, or clubbing NEUROLOGIC: CN intact and symmetric to inspection. MUSCULOSKELETAL: Tone and strength symmetric. PSYCH: Alert. Oriented to person, place, and time. Objective Data Vital Signs Vital Signs: Vital Signs - 24 hr 03/20/19 11:46 03/20/19 12:00 03/20/19 13:50 Temperature 99.4 F Pulse Rate 127 H 131 H 133 H Respiratory Rate 21 H 20 Blood Pressure 77/49 L Pulse Oximetry 98 98 03/20/19 14:00 03/20/19 16:00 03/20/19 17:30 Temperature 99.7 F H Pulse Rate 132 H 124 H 132 H Respiratory Rate 20 22 H Blood Pressure 93/60 L 106/58 L Pulse Oximetry 98 97 98 03/20/19 18:00 03/20/19 19:39 03/20/19 19:55 Temperature Pulse Rate 120 H 122 H 120 H Respiratory Rate 19 20 20 Blood Pressure 106/62 Pulse Oximetry 97 98 03/20/19 20:00 03/20/19 22:00 03/20/19 22:55 Temperature 100.1 F H Pulse Rate 126 H 119 H 114 H
--- NOTE | 2019-03-21 11:38 | PM.IMPN ---
Progress Note: A&P Assessment and Plan (1) Symptomatic anemia: Code(s): D64.9 - Anemia, unspecified Status: Acute Assessment and Plan: likely due to lung ca and tx 03/20 hgb 7.8 03/21 hgb 7.4 (2) Arterial hypotension: Qualifiers: Hypotension type: other hypotension type Qualified Code(s): I95.89 - Other hypotension Code(s): I95.9 - Hypotension, unspecified Status: Resolved Assessment and Plan: anemia, dehydration, sepsis 03/19 FENA 2.3% c/w prerenal etiology 03/21 norepinephrine 3mcg, weaning (3) Lung cancer: Qualifiers: Laterality: unspecified laterality Lung location: unspecified part of lung Qualified Code(s): C34.90 - Malignant neoplasm of unspecified part of unspecified bronchus or lung Code(s): C34.90 - Malignant neoplasm of unspecified part of unspecified bronchus or lung Status: Chronic Assessment and Plan: poor px oncology input appreciated (4) Leukocytosis: Qualifiers: Leukocytosis type: unspecified Qualified Code(s): D72.829 - Elevated white blood cell count, unspecified Code(s): D72.829 - Elevated white blood cell count, unspecified Status: Acute Assessment and Plan: possible sepsis due to colitis vs urinary source vancomycin, cefepime, metronidazole (5) Thrombocytosis: Code(s): D47.3 - Essential (hemorrhagic) thrombocythemia Status: Acute Assessment and Plan: due to lung ca (6) Hypokalemia: Code(s): E87.6 - Hypokalemia Status: Acute Assessment and Plan: 03/20 3.6 after k-rider 03/21 3.3, supplement (7) Tachycardia: Code(s): R00.0 - Tachycardia, unspecified Status: Acute Assessment and Plan: pulseless VT early AM 03/20, code blue SVT did not respond to adenosine 03/20 AM Metoprolol maintaining HR 110s-120s Subjective Date/time seen: 03/21/19 11:38 Interval history: Sedated on vent. Review of Systems Review of Systems: ROS unobtainable: unobtainable due to endotracheal tube and unobtainable due to mental status Exam Narrative: Exam Narrative: HEENT: Pupils midpoint and sluggish NECK: No JVD CHEST: coarse BS HEART: NL S1/S2, tachycardic ABDOMEN: BS+, soft, nontender, no mass, no bruits EXTREMITIES: No cyanosis, edema, or clubbing NEUROLOGIC: CN intact and symmetric to inspection. MUSCULOSKELETAL: Tone and strength symmetric. PSYCH: Alert. Oriented to person, place, and time. Objective Data Vital Signs Vital Signs: Vital Signs - 24 hr 03/20/19 11:46 03/20/19 12:00 03/20/19 13:50 Temperature 99.4 F Pulse Rate 127 H 131 H 133 H Respiratory Rate 21 H 20 Blood Pressure 77/49 L Pulse Oximetry 98 98 03/20/19 14:00 03/20/19 16:00 03/20/19 17:30 Temperature 99.7 F H Pulse Rate 132 H 124 H 132 H Respiratory Rate 20 22 H Blood Pressure 93/60 L 106/58 L Pulse Oximetry 98 97 98 03/20/19 18:00 03/20/19 19:39 03/20/19 19:55 Temperature Pulse Rate 120 H 122 H 120 H Respiratory Rate 19 20 20 Blood Pressure 106/62 Pulse Oximetry 97 98 03/20/19 20:00 03/20/19 22:00 03/20/19 22:55 Temperature 100.1 F H Pulse Rate 126 H 119 H 114 H Respiratory Rate 19 18 Blood Pressure 108/62 104/59 L Pulse Oximetry 98 99 100 03/20/19 23:40 03/21/19 00:00 03/21/19 02:00 Temperature 99.2 F Pulse Rate 115 H 110 H 110 H Respiratory Rate 18 18 Blood Pressure 105/66 98/59 L Pulse Oximetry 100 100 03/21/19 02:08 03/21/19 04:00 03/21/19 04:21 Temperature 98.3 F Pulse Rate 111 H 114 H 115 H Respiratory Rate 20 18 Blood Pressure 97/57 L Pulse Oximetry 100 100 100 03/21/19 05:36 03/21/19 05:54 03/21/19 06:00 Temperature Pulse Rate 116 H 107 H 112 H Respiratory Rate 17 Blood Pressure 94/58 L Pulse Oximetry 100 03/21/19 07:59 03/21/19 08:00 03/21/19 08:45 Temperature Pulse Rate 108 H 110 H 116 H Respiratory Rate 14 20 Blood Pressure Pulse Oxime
--- NOTE | 2019-03-21 11:53 | PCDIET ---
Nutrition Follow-Up Complete: Nutrition Diagnosis: Suboptimal oral intake related to decreased appetite as evidenced by meal refusal and reported weight loss. Nutrition Goal: Patient to consume 50% or more of meals + supplements Goal not met. Patient intubated and has been NPO. MD ordered to start Two Bryan HN feedings this date. Recommend goal rate of 35mL/hr x 22 hours/day for 1540kcal, 64g protein and 539mL free water. Last recorded weight is 78.5 kg. Bowel Motility: BM x 8 on 03/20/19. Labs Reviewed: BUN (30), Cr (1.4), K (3.2), Alb (2.4), Ca (8.3), PO4 (6.1), Hgb (7.4), Hct (22.8) Meds Noted: Levophed, Protonix, KCl, Vitamin B1, Cefepime, Questran, Vitamin B12, Fentanyl, Folic Acid, Mag-Ox, Versed, MVI with minerals Additional Notes: No documented skin breakdown. Will continue to monitor with new goal of tube feeding tolerance. Nutrition Monitoring and Evaluation: Follow up every Sunday/Sunday. Follow daily in ICU rounds.
--- NOTE | 2019-03-21 13:23 | WPDINFPN2 ---
Progress Note: A&P Assessment and Plan (1) Leukocytosis: Qualifiers: Leukocytosis type: unspecified Qualified Code(s): D72.829 - Elevated white blood cell count, unspecified Code(s): D72.829 - Elevated white blood cell count, unspecified Status: Acute Assessment and Plan: 1. Chronic (2 months if not more) leukocytosis, due to lung cancer 2. Hypotension - HCAP? Cortisol level in appropriate range. 3. Report of + C diff test,low suspicion for C diff infection at present. The pancolitis seen on CT is also chronic though worse now. 4. NSCLC, metastatic to anterior mediastinum and bilateral adrenals REC Cefepime #2, continue. Update family at bedside. Subjective Date/time seen: 03/21/19 13:23 Interval history: sedated, 3 mcg norepi, intubated and on vent support Exam Narrative: Exam Narrative: t max 37.8 Const: General: no acute distress Eyes: General: appearance normal, both eyes and all related structures Resp: Effort & Inspection: normal respiratory effort Auscultation: clear to auscultation bilaterally Cardio: Rate: tachycardic Rhythm: regular rhythm Heart sounds: no gallops and no murmurs GI: Inspection: non-distended GI Palp: Yes Soft to palpation and No Tenderness to palpation present (GI) Percussion: Yes normal to percussion Auscultation: normal bowel sounds Urinary Catheter: Urinary Catheter: patent and draining Skin: General skin exam: normal color Objective Data Vital Signs Vital Signs: Vital Signs - 24 hr 03/20/19 13:50 03/20/19 14:00 03/20/19 16:00 Temperature 37.6 C H Pulse Rate 133 H 132 H 124 H Respiratory Rate 20 20 22 H Blood Pressure 93/60 L 106/58 L Pulse Oximetry 98 98 97 03/20/19 17:30 03/20/19 18:00 03/20/19 19:39 Temperature Pulse Rate 132 H 120 H 122 H Respiratory Rate 19 20 Blood Pressure 106/62 Pulse Oximetry 98 97 98 03/20/19 19:55 03/20/19 20:00 03/20/19 22:00 Temperature 37.8 C H Pulse Rate 120 H 126 H 119 H Respiratory Rate 20 19 18 Blood Pressure 108/62 104/59 L Pulse Oximetry 98 99 03/20/19 22:55 03/20/19 23:40 03/21/19 00:00 Temperature 37.3 C Pulse Rate 114 H 115 H 110 H Respiratory Rate 18 Blood Pressure 105/66 Pulse Oximetry 100 100 03/21/19 02:00 03/21/19 02:08 03/21/19 04:00 Temperature 36.8 C Pulse Rate 110 H 111 H 114 H Respiratory Rate 18 20 18 Blood Pressure 98/59 L 97/57 L Pulse Oximetry 100 100 100 03/21/19 04:21 03/21/19 05:36 03/21/19 05:54 Temperature Pulse Rate 115 H 116 H 107 H Respiratory Rate 17 Blood Pressure 94/58 L Pulse Oximetry 100 100 03/21/19 06:00 03/21/19 07:59 03/21/19 08:00 Temperature Pulse Rate 112 H 108 H 110 H Respiratory Rate 14 Blood Pressure Pulse Oximetry 100 03/21/19 08:45 03/21/19 10:55 03/21/19 12:32 Temperature Pulse Rate 116 H 119 H 130 H Respiratory Rate 20 Blood Pressure Pulse Oximetry 94 Intake/Output Intake/Output: Intake & Output 03/18/19 03/19/19 03/20/19 03/21/19 23:59 23:59 23:59 23:59 Intake Total 3190 2625 1950 1231 Output Total 800 1100 650 600 Balance 2390 1525 1300 631 Meds/Results Medications: Active Medications Generic Name Dose Route Start Last Admin Trade Name Freq PRN Reason Stop Dose Admin Hydrocodone Bitart/Acetaminophen 1 tab 03/18/19 11:40 Blairs 5-325 Mg PO Q6H PRN Pain Budesonide/Formoterol Fumarate 2 puff 03/18/19 20:00 03/20/19 08:00 Symbicort 160-4.5 Mcg (*Sp) Inhaler INHALATION Not Given Q12HRT [facility] Cholestyramine Resin 4 gm 03/19/19 18:00 03/21/19 08:25 Questran Light Packet PO 4 gm BID@1000,1800 [facility] Administration Cyanocobalamin 1,000 mcg 03/19/19 09:00 03/21/19 08:24 Vitamin B-12 Tab PO 04/18/19 09:01 1,000 mcg DAILY DAGOBERTO Administration Folic Acid 1 mg 03/19/19 09:00 03/21/19 08:24 Folic Acid PO 1 mg DAILY DAGOBERTO Administration Midazolam HCl 50 mg/ Dextrose 100 mls @ 4 mls/hr 02
[2019-03-21] MEDS: MIDAZOLAM HCL 50 MG in DEXTROSE 5% 90 ML IV CONT (14:51)
[2019-03-21] MEDS: PANTOPRAZOLE 40 MG TABLET PO (17:19)
--- NOTE | 2019-03-21 17:40 | WPDONCPN ---
Progress Note: A/P - Additional Plan Normocytic anemia of unclear etiology. Sully test negative. Bone marrow biopsy was planned but could not be done due to patient declining status. At this time I will recommend transfusion as needed. Lung cancer. Status post lymph node biopsy. Patient is not a candidate for chemotherapy. Diarrhea. Patient is on Flagyl. C diff testing came back negative. Hypokalemia. Improved. - Time Spent With Patient Total time spent is greater than 50% in coordination of care (as documented) at patient's floor/unit and/or counseling patient: 15 - 25 minutes Subjective Interval history: Normocytic anemia Lung cancer Review of Systems - Review of Systems Patient remains sedated and intubated. Family present in the room and discussed the case. - Neurologic Reports system reviewed and no additional complaints, except as documented, Denies abnormal gait, Denies behavioral changes Exam Vital signs: Sarah Jefferson. Assessment of coma and impaired consciousness. A practical scale. Lancet 1974; 2:81-4. Narrative: Patient remains sedated and intubated. Lungs clear to auscultation bilaterally Cardiovascular regular rate rhythm no murmurs Abdomen soft nontender nondistended diminished bowel sounds Extremities no edema PN: Objective Data - Labs CBC & Chem 7: 03/21/19 05:48 03/21/19 08:34 Labs: Laboratory Results - last 24 hr 03/21/19 03/21/19 03/21/19 00:11 04:15 05:48 WBC RBC Hgb Hct MCV MCH MCHC RDW Plt Count MPV Puncture Site Right brachial ABG pH 7.383 ABG pCO2 32.6 L ABG pO2 84.7 ABG PO2/FiO2 Ratio 2.82 ABG HCO3 19.0 L ABG O2 Saturation 96.4 ABG O2 Content 11.1 L ABG Base Excess -5.4 A-a Gradient 90.9 Oxyhemoglobin 94.1 Carboxyhemoglobin 0.3 Methemoglobin 0.7 Reduced Hemoglobin 4.9 Total Hemoglobin 8.3 L O2 Delivery Device Ventilator O2 Liters/Min Not Reportable Minute Volume Not Reportable Vent Rate 14 Vent Mode Cmv FiO2 30 Tidal Volume 450 PEEP 8 Peak Inspir Pressure Not Reportable Pressure Support 0 Sodium 137 Potassium 3.2 L Chloride 105 Carbon Dioxide 20 L BUN 30 H Creatinine 1.50 H Estim Creat Clear Calc 42 Estimated GFR 44 L Glucose 95 POC Capillary Glucose 94 Lactic Acid Calcium 8.2 L Phosphorus 6.1 H Magnesium Albumin 2.4 L Random Cortisol 03/21/19 03/21/19 03/21/19 05:48 05:48 05:48 WBC 33.9 H RBC 2.62 L Hgb 7.4 L Hct 22.8 L MCV 87.0 MCH 28.2 MCHC 32.5 RDW 16.3 H Plt Count 346 MPV 9.4 Puncture Site ABG pH ABG pCO2 ABG pO2 ABG PO2/FiO2 Ratio ABG HCO3 ABG O2 Saturation ABG O2 Content ABG Base Excess A-a Gradient Oxyhemoglobin Carboxyhemoglobin Methemoglobin Reduced Hemoglobin Total Hemoglobin O2 Delivery Device O2 Liters/Min Minute Volume Vent Rate Vent Mode FiO2 Tidal Volume PEEP Peak Inspir Pressure Pressure Support Sodium 137 Potassium 3.2 L Chloride 103 Carbon Dioxide 20 L BUN 30 H Creatinine 1.40 H Estim Creat Clear Calc 45 Estimated GFR 48 L Glucose 94 POC Capillary Glucose Lactic Acid 0.8 Calcium 8.3 L Phosphorus 6.1 H Magnesium 1.5 L Albumin Random Cortisol 03/21/19 03/21/19 08:33 08:34 WBC RBC Hgb Hct MCV MCH MCHC RDW Plt Count MPV Puncture Site ABG pH ABG pCO2 ABG pO2 ABG PO2/FiO2 Ratio ABG HCO3 ABG O2 Saturation ABG O2 Content ABG Base Excess A-a Gradient Oxyhemoglobin Carboxyhemoglobin Methemoglobin Reduced Hemoglobin Total Hemoglobin O2 Delivery Device O2 Liters/Min Minute Volume Vent Rate Vent Mode FiO2 Tidal Volume PEEP Peak Inspir Pressure Pressure Support
[2019-03-21] MEDS: MONTELUKAST SODIUM 10 MG TABLET PO (20:00)
[2019-03-22] VITALS (37 sets, daily range): BP systolic 82–114; BP diastolic 54–75; PULSE 90–137; RESP 16–25; TEMP 36.7–36.9; O2SAT 98–100
[2019-03-22 00:25] LABS: Glucose Point of Care 86 (65-105)
[2019-03-22] MEDS: IPRATROPIUM BR 0.02% INH SOLN 0.5 MG/2.5 ML VIAL INHALATION ×4 (01:27→19:47)
[2019-03-22 04:11] LABS: Alveolar/Arterial O2 Gradient 76.5 mmHg; Base Excess ABG -7.3 mEq/l (+/-2.0); Carboxyhemoglobin 0.3 % THb (0-2.0); Fractional Inspired Oxygen 30 %; HCO3 ABG 17.5 mEq/l (22.0-26.0); Methemoglobin ABG 0.6 %THb (0-1.5); Oxygen Content ABG 12.4 %vol (16.0-22.0); Oxygen Saturation ABG 97.3 % (95.0-100.0); Oxyhemoglobin 95.8 % THb (90.0-100.0); PCO2 ABG 32.4 mmHg (35.0-45.0); PO2 ABG 99.3 mmHg (80.0-100.0); PO2 FiO2 Ratio Arterial Blood 3.31 %; Reduced Hemoglobin 3.3 %THb (0-5.0); Total Hemoglobin 9.1 g/dL (12.0-18.0)
[2019-03-22 04:12] LABS: Device VENTILATOR; Modified Allen's Test Pass; Site Drawn LEFT BRACHIAL
[2019-03-22 04:13] LABS: Arterial Blood Gas PEEP 8 cmH2O; Arterial Blood Gas Tidal Volume 450 ml; Arterial Blood Gas Vent Mode CMV; Arterial Blood Gas Ventilator rate 14 /MIN
[2019-03-22] MEDS: METOPROLOL TARTRATE INJ 5 MG/5 ML VIAL IV PUSH ×4 (05:54→23:25)
[2019-03-22 06:46] LABS: Lactic Acid 0.8 mmol/L (0.7-2.1)
[2019-03-22 06:54] LABS: Blood Urea Nitrogen 36 mg/dL (7-17); Calcium 8.3 mg/dL (8.4-10.2); Carbon Dioxide 18 mmol/L (22-30); Chloride 107 mmol/L (98-107); Estimated CRCL calculation 33 ml/min; Estimated Glomerular Filt Rate 38; Glucose 102 mg/dL (65-105); Magnesium 2.4 mg/dL (1.6-2.3); Phosphorus 6.4 mg/dL (2.5-4.5); Potassium 4.4 mmol/L (3.4-5.0); Sodium 139 mmol/L (137-145)
[2019-03-22 07:57] LABS: Mean Corpuscular HGB Conc 31.8 g/dl (32-36); Mean Corpuscular Hemoglobin 28.6 pg (26-34); Mean Corpuscular Volume 89.8 fl (80-100); Mean Platelet Volume 9.7 fl (7.4-10.4); Platelet Count Result 355 k/mm3 (150-375); Red Blood Count 2.45 M/mm3 (4.2-5.4); Red Cell Distribution Width 16.5 % (11.5-14.5); White Blood Count 35.1 K/mm3 (4.5-10.0)
[2019-03-22] MEDS: MAGNESIUM OXIDE 400 MG TABLET PO ×2 (08:02→21:19)
[2019-03-22] MEDS: THIAMINE HCL 100 MG TABLET PO (08:02)
[2019-03-22] MEDS: FOLIC ACID 1 MG TABLET PO (08:02)
[2019-03-22] MEDS: CYANOCOBALAMIN 1,000 MCG TABLET 1000 MCG PO (08:02)
[2019-03-22] MEDS: THERAPEUTIC MULTIVITAMINS/MINERALS TAB (*BKC) 1 TABLET PO (08:02)
[2019-03-22] MEDS: POTASSIUM CHLORIDE 20 MEQ PACKET (FOR LIQUID) 40 MEQ PO ×2 (08:08→17:08)
[2019-03-22] MEDS: CHOLESTYRAMINE LIGHT 4 GM POWD.PACK PO ×2 (09:10→17:08)
--- NOTE | 2019-03-22 10:02 | P.PNIM_ITS ---
Progress Note: A&P Assessment and Plan (1) Symptomatic anemia: Code(s): D64.9 - Anemia, unspecified Status: Acute Assessment and Plan: * likely due to lung ca and tx * 03/20 hgb 7.8 * 03/21 hgb 7.4 * 03/22 hgb 7.0 (2) Arterial hypotension: Qualifiers: Hypotension type: other hypotension type Qualified Code(s): I95.89 - Other hypotension Code(s): I95.9 - Hypotension, unspecified Status: Resolved Assessment and Plan: * anemia, dehydration, sepsis * 03/19 FENA 2.3% c/w prerenal etiology * 03/21 norepinephrine 3mcg, weaning * 03/22 norepinephrine 4mcg, attempt wean (3) Lung cancer: Qualifiers: Laterality: unspecified laterality Lung location: unspecified part of lung Qualified Code(s): C34.90 - Malignant neoplasm of unspecified part of unspecified bronchus or lung Code(s): C34.90 - Malignant neoplasm of unspecified part of unspecified bronchus or lung Status: Chronic Assessment and Plan: * poor px * oncology input appreciated (4) Leukocytosis: Qualifiers: Leukocytosis type: unspecified Qualified Code(s): D72.829 - Elevated white blood cell count, unspecified Code(s): D72.829 - Elevated white blood cell count, unspecified Status: Acute Assessment and Plan: * possible sepsis due to colitis (urine culture negative) * vancomycin, cefepime, metronidazole (5) Thrombocytosis: Code(s): D47.3 - Essential (hemorrhagic) thrombocythemia Status: Acute Assessment and Plan: * due to lung ca (6) Hypokalemia: Code(s): E87.6 - Hypokalemia Status: Acute Assessment and Plan: * 03/20 3.6 after k-rider * 03/21 3.3, supplement * 2.8 4.4 (7) Tachycardia: Code(s): R00.0 - Tachycardia, unspecified Status: Acute Assessment and Plan: * pulseless VT early AM 03/20, code blue * SVT did not respond to adenosine 03/20 AM * Metoprolol maintaining HR 110s-120s Subjective Date/time seen: 03/22/19 10:02 Interval history: Sedated on vent. 03/22 overnight had issues with tube feeding, so metoclopramide added Review of Systems Review of Systems: ROS unobtainable: unobtainable due to endotracheal tube and unobtainable due to mental status Exam Narrative: Exam Narrative: HEENT: ET tube and OG tube in place NECK: No JVD CHEST: coarse BS HEART: NL S1/S2, tachycardic ABDOMEN: BS+, soft, nontender, no mass, no bruits EXTREMITIES: No cyanosis, edema, or clubbing NEUROLOGIC: CN intact and symmetric to inspection. MUSCULOSKELETAL: Tone and strength symmetric. PSYCH: Alert. Oriented to person, place, and time. Objective Data Vital Signs Vital Signs: Vital Signs - 24 hr 03/21/19 10:55 03/21/19 12:00 03/21/19 12:32 Temperature 98.7 F Pulse Rate 119 H 127 H 130 H Respiratory Rate 20 Blood Pressure 89/60 L Pulse Oximetry 94 94 03/21/19 14:00 03/21/19 14:24 03/21/19 14:48 Temperature Pulse Rate 128 H 126 H 131 H Respiratory Rate 20 21 H 19 Blood Pressure 90/57 L Pulse Oximetry 97 97 03/21/19 16:00 03/21/19 17:08 03/21/19 17:18 Temperature 99.0 F Pulse Rate 129 H 133 H 134 H Respiratory Rate 18 Blood Pressure 89/57 L Pulse Oximetry 98 97 03/21/19
--- NOTE | 2019-03-22 10:02 | PM.IMPN ---
Progress Note: A&P Assessment and Plan (1) Symptomatic anemia: Code(s): D64.9 - Anemia, unspecified Status: Acute Assessment and Plan: likely due to lung ca and tx 03/20 hgb 7.8 03/21 hgb 7.4 03/22 hgb 7.0 (2) Arterial hypotension: Qualifiers: Hypotension type: other hypotension type Qualified Code(s): I95.89 - Other hypotension Code(s): I95.9 - Hypotension, unspecified Status: Resolved Assessment and Plan: anemia, dehydration, sepsis 03/19 FENA 2.3% c/w prerenal etiology 03/21 norepinephrine 3mcg, weaning 03/22 norepinephrine 4mcg, attempt wean (3) Lung cancer: Qualifiers: Laterality: unspecified laterality Lung location: unspecified part of lung Qualified Code(s): C34.90 - Malignant neoplasm of unspecified part of unspecified bronchus or lung Code(s): C34.90 - Malignant neoplasm of unspecified part of unspecified bronchus or lung Status: Chronic Assessment and Plan: poor px oncology input appreciated (4) Leukocytosis: Qualifiers: Leukocytosis type: unspecified Qualified Code(s): D72.829 - Elevated white blood cell count, unspecified Code(s): D72.829 - Elevated white blood cell count, unspecified Status: Acute Assessment and Plan: possible sepsis due to colitis (urine culture negative) vancomycin, cefepime, metronidazole (5) Thrombocytosis: Code(s): D47.3 - Essential (hemorrhagic) thrombocythemia Status: Acute Assessment and Plan: due to lung ca (6) Hypokalemia: Code(s): E87.6 - Hypokalemia Status: Acute Assessment and Plan: 03/20 3.6 after k-rider 03/21 3.3, supplement 2.8 4.4 (7) Tachycardia: Code(s): R00.0 - Tachycardia, unspecified Status: Acute Assessment and Plan: pulseless VT early AM 03/20, code blue SVT did not respond to adenosine 03/20 AM Metoprolol maintaining HR 110s-120s Subjective Date/time seen: 03/22/19 10:02 Interval history: Sedated on vent. 03/22 overnight had issues with tube feeding, so metoclopramide added Review of Systems Review of Systems: ROS unobtainable: unobtainable due to endotracheal tube and unobtainable due to mental status Exam Narrative: Exam Narrative: HEENT: ET tube and OG tube in place NECK: No JVD CHEST: coarse BS HEART: NL S1/S2, tachycardic ABDOMEN: BS+, soft, nontender, no mass, no bruits EXTREMITIES: No cyanosis, edema, or clubbing NEUROLOGIC: CN intact and symmetric to inspection. MUSCULOSKELETAL: Tone and strength symmetric. PSYCH: Alert. Oriented to person, place, and time. Objective Data Vital Signs Vital Signs: Vital Signs - 24 hr 03/21/19 10:55 03/21/19 12:00 03/21/19 12:32 Temperature 98.7 F Pulse Rate 119 H 127 H 130 H Respiratory Rate 20 Blood Pressure 89/60 L Pulse Oximetry 94 94 03/21/19 14:00 03/21/19 14:24 03/21/19 14:48 Temperature Pulse Rate 128 H 126 H 131 H Respiratory Rate 20 21 H 19 Blood Pressure 90/57 L Pulse Oximetry 97 97 03/21/19 16:00 03/21/19 17:08 03/21/19 17:18 Temperature 99.0 F Pulse Rate 129 H 133 H 134 H Respiratory Rate 18 Blood Pressure 89/57 L Pulse Oximetry 98 97 03/21/19 18:00 03/21/19 19:20 03/21/19 19:53 Temperature 100.1 F H 99.2 F Pulse Rate 129 H Respiratory Rate 18 Blood Pressure 97/70 L Pulse Oximetry 97 03/21/19 19:58 03/21/19 20:00 03/21/19 20:26 Temperature 100.1 F H Pulse Rate 139 H 131 H 130 H Respiratory Rate 21 H 19 Blood Pressure 104/67 Pulse Oximetry 96 03/21/19 20:28 03/21/19 20:35 03/21/19 22:00 Temperature Pulse Rate 129 H 123 H 119 H Respiratory Rate 19 18 Blood Pressure 91/56 L Pulse Oximetry 98 98 03/21/19 23:17 03/21/19 23:38 03/21/19 23:58 Temperature 98.6 F Pulse Rate 118 H 115 H 116 H Respiratory Rate 19 Blood Pressure 94/60 L Pulse Oximetry 100 99 03/22/19 00:00 03/22/19 01:29 03/22/19 01:30 Fabricio
--- NOTE | 2019-03-22 11:04 | P.PNNP_ITS ---
Progress Note: A&P Assessment and Plan (1) Hypokalemia: Code(s): E87.6 - Hypokalemia Status: Acute Assessment and Plan: * noted since admission * suspect due to total body store depletion from poor oral intake, diarrhea...e worsened by her hypomagnesemia * urine electrolytes c/w prerenal azotemia * however, given her history of hypertension and metastatic lesions in her adrenal gland, can not discount some type of mineralcorticoid excess syndrome of [place]... - given her current status, will be difficult to evaluate this * for now, would repleted K+ and Mg++ PRN and re-evaluate when she clinically improves for current illness (2) Acute kidney failure, unspecified: Code(s): N17.9 - Acute kidney failure, unspecified Status: Acute Assessment and Plan: * multifactorial etiology: - prerenal factors - hemodynamic instability/shock/cardiac arrest - reduce ejection fraction/cardiomyopathy - contrast exposure * continue supportive therapy for now (3) Cardiac arrest: Code(s): I46.9 - Cardiac arrest, cause unspecified Status: Acute Assessment and Plan: * precipitated by Torsades * Echo results noted * Cardiology following (4) Acute respiratory failure: Code(s): J96.00 - Acute respiratory failure, unspecified whether with hypoxia or hypercapnia Status: Acute Assessment and Plan: * secondary to cardiac arrest and pulmonary edema * remains on mechanical ventilation * wean as tolerated (5) Symptomatic anemia: Code(s): D64.9 - Anemia, unspecified Status: Acute Assessment and Plan: * etiology not entirely clear * she is suspectible to this given her metastatic lung cancer * her LALY may be a contributing component as well * Dr. Jensen following (6) Lung cancer: Qualifiers: Laterality: unspecified laterality Lung location: unspecified part of lung Qualified Code(s): C34.90 - Malignant neoplasm of unspecified part of un specified bronchus or lung Code(s): C34.90 - Malignant neoplasm of unspecified part of unspecified bronchus or lung Status: Chronic Assessment and Plan: * metastatic as noted by recent imaging studies * not currently on any treatment Subjective Date/time seen: 03/22/19 11:04 Patient intubated and sedated; remains on low dose pressors to maintain MAP; no apparent distress noted at this time. Exam Narrative: Exam Narrative: General: WD/WN female in NAD Heart: normal S1 and S2; no rub Lungs: coarse breath sounds throughout Abdomen: soft, nontender, nondistended, positive bowel sounds Extremities: no cyanosis or clubbing; trace - 1+ edema Skin: warm and dry Objective Data Vital Signs Vital Signs: Vital Signs Temp Pulse Resp BP Pulse Ox 03/22/19 10:00 137 H 20 93/63 L 100 03/22/19 09:54 116 H 19 03/22/19 09:51 116 H 100 03/22/19 09:46 116 H 19 03/22/19 08:00 36.9 C 113 H 18 94/62 L 100 03/22/19 06:00 104 H 17 96/60 L 100 03/22/19 05:54 111 H 03/22/19 05:41 114 H 100 03/22/19 04:00 114 H 03/22/19 03:53 36.7 C 115 H 18 112/75 100 03/22/19 02:00 110 H 18 92/60 L 99 03/22/19 01:30 110 H 99 03/22/19 01:29 109 H 20 03/22/19 00:00 115 H 03/21/19 23:58 116 H
--- NOTE | 2019-03-22 11:04 | PM.PNNEP ---
Progress Note: A&P Assessment and Plan (1) Hypokalemia: Code(s): E87.6 - Hypokalemia Status: Acute Assessment and Plan: noted since admission suspect due to total body store depletion from poor oral intake, diarrhea...e worsened by her hypomagnesemia urine electrolytes c/w prerenal azotemia however, given her history of hypertension and metastatic lesions in her adrenal gland, can not discount some type of mineralcorticoid excess syndrome of [place]... - given her current status, will be difficult to evaluate this for now, would repleted K+ and Mg++ PRN and re-evaluate when she clinically improves for current illness (2) Acute kidney failure, unspecified: Code(s): N17.9 - Acute kidney failure, unspecified Status: Acute Assessment and Plan: multifactorial etiology: - prerenal factors - hemodynamic instability/shock/cardiac arrest - reduce ejection fraction/cardiomyopathy - contrast exposure continue supportive therapy for now (3) Cardiac arrest: Code(s): I46.9 - Cardiac arrest, cause unspecified Status: Acute Assessment and Plan: precipitated by Torsades Echo results noted Cardiology following (4) Acute respiratory failure: Code(s): J96.00 - Acute respiratory failure, unspecified whether with hypoxia or hypercapnia Status: Acute Assessment and Plan: secondary to cardiac arrest and pulmonary edema remains on mechanical ventilation wean as tolerated (5) Symptomatic anemia: Code(s): D64.9 - Anemia, unspecified Status: Acute Assessment and Plan: etiology not entirely clear she is suspectible to this given her metastatic lung cancer her LALY may be a contributing component as well Dr. Jensen following (6) Lung cancer: Qualifiers: Laterality: unspecified laterality Lung location: unspecified part of lung Qualified Code(s): C34.90 - Malignant neoplasm of unspecified part of unspecified bronchus or lung Code(s): C34.90 - Malignant neoplasm of unspecified part of unspecified bronchus or lung Status: Chronic Assessment and Plan: metastatic as noted by recent imaging studies not currently on any treatment Subjective Date/time seen: 03/22/19 11:04 Patient intubated and sedated; remains on low dose pressors to maintain MAP; no apparent distress noted at this time. Exam Narrative: Exam Narrative: General: WD/WN female in NAD Heart: normal S1 and S2; no rub Lungs: coarse breath sounds throughout Abdomen: soft, nontender, nondistended, positive bowel sounds Extremities: no cyanosis or clubbing; trace - 1+ edema Skin: warm and dry Objective Data Vital Signs Vital Signs: Vital Signs Temp Pulse Resp BP Pulse Ox 03/22/19 10:00 137 H 20 93/63 L 100 03/22/19 09:54 116 H 19 03/22/19 09:51 116 H 100 03/22/19 09:46 116 H 19 03/22/19 08:00 36.9 C 113 H 18 94/62 L 100 03/22/19 06:00 104 H 17 96/60 L 100 03/22/19 05:54 111 H 03/22/19 05:41 114 H 100 03/22/19 04:00 114 H 03/22/19 03:53 36.7 C 115 H 18 112/75 100 03/22/19 02:00 110 H 18 92/60 L 99 03/22/19 01:30 110 H 99 03/22/19 01:29 109 H 20 03/22/19 00:00 115 H 03/21/19 23:58 116 H 03/21/19 23:38 37.0 C 115 H 19 94/60 L 99 03/21/19 23:17 118 H 100 03/21/19 22:00 119 H 18 91/56 L 98 03/21/19 20:35 123 H 19 03/21/19 20:28 129 H 98 03/21/19 20:26 130 H 19 03/21/19 20:00 131 H 03/21/19 19:58 37.8 C H 139 H 21 H 104/67 96 03/21/19 19:53 37.3 C 03/21/19 19:20 37.8 C H 03/21/19 18:00 129 H 18 97/70 L 97 03/21/19 17:18 134 H 03/21/19 17:08 133 H 97 03/21/19 16:00 37.2 C 129 H 18 89/57 L 98 03/21/19 14:48 131 H 19 03/21/19 14:24 126 H 21 H 97 03/21/19 14:00 128 H 20 90/57 L 97 03/21/19 12:32 130 H
--- NOTE | 2019-03-22 12:02 | WPDINTPN ---
Progress Note: A&P Assessment and Plan (1) Cardiac arrest: Code(s): I46.9 - Cardiac arrest, cause unspecified Status: Acute Assessment and Plan: patient had cardiac arrest overnight consistent with torsades, went into AFib RVR post resuscitation and then SVT. Patient was cardioverted and given adenosine without success. remains in sinus tachycardia - continue metoprolol, cardiology following the patient - echocardiogram 03/20/2019 shows EF of 30 35%, grade 1 diastolic dysfunction, global hypokinesis of the left ventricle right ventricular function is reduced, moderate pulmonary hypertension with RVSP of 45 mmHg - will keep potassium above 4.0 and magnesium above 2.0 (2) Acute respiratory failure: Code(s): J96.00 - Acute respiratory failure, unspecified whether with hypoxia or hypercapnia Status: Acute Assessment and Plan: Post cardiac arrest patient was having difficulty breathing, found to have pulmonary edema, requiring intubation on 03/20/2019 - chest x-ray and ABGs reviewed, ventilator adjusted - continue bronchodilators - CT scan of the chest On 03/20/2019 did not show any pulmonary emboli, 1.4 cm nodule in the left lower lung lobe suspicious for primary bronchogenic carcinoma, mediastinal and left supraclavicular lymphadenopathy and bilateral adrenal masses consist with metastatic disease. A liver mass and splenic masses suspicious for metastatic disease. - will wean fentanyl and Versed start Precedex, chest x-ray improving, will place patient on SBT (3) Arterial hypotension: Qualifiers: Hypotension type: other hypotension type Qualified Code(s): I95.89 - Other hypotension Code(s): I95.9 - Hypotension, unspecified Status: Resolved Assessment and Plan: patient has been hypotensive likely related to severe tachycardia, hypovolemia, sedation. - Patient has a central line, will maintain mean arterial pressure is greater than 65 mmHg, Levophed if required - lactic acid has normalized - source likely lungs, continue cefepime - appreciate infectious disease elevation and recommendation (4) Symptomatic anemia: Code(s): D64.9 - Anemia, unspecified Status: Acute Assessment and Plan: Anemia of chronic disease versus bone marrow disease. Patient does have a poor p.o intake but anemia appear to be too severe for anemia of chronic disease .Records from [facility] reviewed . Patient has early recent admission 03/07/2019 and had received multiple blood transfusions for hemoglobin of 4. EGD was also done which was negative. Patient refused colonoscopy though she has been having some diarrhea. - She has received 5 units of packed RBC since admission. - d/w heme, may need bone marrow bx. - hemoglobin trending down, repeat CBC this afternoon (5) Lung cancer: Qualifiers: Laterality: unspecified laterality Lung location: unspecified part of lung Qualified Code(s): C34.90 - Malignant neoplasm of unspecified part of unspecified bronchus or lung Code(s): C34.90 - Malignant neoplasm of unspecified part of unspecified bronchus or lung Status: Chronic Assessment and Plan: As per records from [facility] patient has on on non differentiated non small-cell lung cancer diagnose 01/22/2019. - Mets to the adrenal bilaterally which have increased in size, along with spleen and right hepatic lobe as mentioned in the CT abdomen pelvis as under - not a candidate currently for chemotherapy given a performance status at this time - appreciate hematology/oncology following the patient (6) Leukocytosis: Qualifiers: Leukocytosis type: unspecified Qualified Code(s): D72.829 - Elevated white blood cell count, unspecified Code(s): D72.829 - Elevated white blood cell count, unspecified Status: Acute Assessment and Plan: elevated WBCs, likely relat
[2019-03-22] MEDS: METOCLOPRAMIDE HCL INJ 10 MG/2 ML VIAL IV PUSH ×3 (12:25→23:25)
--- NOTE | 2019-03-22 12:33 | PM.PNCARD ---
Progress Note: A&P Assessment and Plan (1) Cardiac arrest: Code(s): I46.9 - Cardiac arrest, cause unspecified Status: Acute Assessment and Plan: Continue current management at this time. Consider IV fluids given tachycardia hypotension requiring pressors. Caution given cardiomyopathy with EF 30-35%. Workup for cardiomyopathy as appropriate was patient is further stabilized. She is not currently in decompensated heart failure nor is she clinically in cardiogenic shock. continue close observation. Initial cardiac arrest consistent with torsades de pointes. Resuscitated and patient was awake after resuscitation but she became more and severely short of breath shortly thereafter. She was subsequently intubated. Rhythm was severely tachycardic. Measures were taken to try to slow her heart rate including treatment for possible atrial fibrillation with diltiazem, cardioversion. Adenosine was also used. Heart rate did slow but it has been in the 140s consistently and currently appears to be in sinus rhythm/tachycardia. She should keep her potassium at least above 4 and so an additional 40 mEq of IV potassium will be given. Will check an EKG now. 2D echocardiogram Doppler will be ordered and reviewed. The Metoprolol 5 mg IV Q 6 hours as blood pressure tolerates is also written. I did talk to Dr. Bourne and she will be having a CT scan of her chest to rule out for PE or other etiology of her persistent tachycardia. (2) Hypokalemia: Code(s): E87.6 - Hypokalemia Status: Acute Assessment and Plan: As above. Keep potassium greater than 4 (3) Symptomatic anemia: Code(s): D64.9 - Anemia, unspecified Status: Acute Assessment and Plan: Status post several units of blood but still significantly anemic. Workup per cotton ball machine tender and other services (4) Lung cancer: Qualifiers: Laterality: unspecified laterality Lung location: unspecified part of lung Qualified Code(s): C34.90 - Malignant neoplasm of unspecified part of unspecified bronchus or lung Code(s): C34.90 - Malignant neoplasm of unspecified part of unspecified bronchus or lung Status: Chronic Assessment and Plan: Recent diagnosis. per primary service Additional Plan VFib arrest in the setting of metastatic non-small cell lung cancer and profound normocytic anemia. Patient was also hypokalemic at the time of the arrest. Seems to be tolerating metoprolol 50 mg q.12 hours for the time being which will help her functional sinus tachycardia. Levophed is being weaned. Subjective Date/time seen: Date of Service: 03/22/19 12:33 Interval history: Follow-up visit for VFib arrest History of metastatic non-small cell lung carcinoma Profound normocytic anemia etiology as yet undetermined. Left ventricular systolic dysfunction noted on echocardiogram following resuscitation Sinus tachycardia responding as expected to metoprolol. Patient intubated/sedated. Unable to provide history. No new events overnight although patient remains in sinus tachycardia HR 130bpm despite Metoprolol. Patient is on Norepinephrine. Review of Systems Review of Systems: All systems reviewed & are unremarkable except as noted in HPI and below ROS unobtainable: unobtainable due to endotracheal tube Constitutional: Constitutional: Denies chills and Reports fatigue Eyes: Eyes: Reports no additional eye complaints ENT: Denies lip swelling and Denies epistaxis Cardiovascular: Cardiovascular: Denies leg edema Respiratory: Respiratory: Denies hemoptysis Gastrointestinal: Gastrointestinal: Denies melena Genitourinary: Genitourinary: Denies hematuria Musculoskeletal: Musculoskeletal: Reports no additional musculoskeletal complaints, Reports as per HPI and Denies abnormal gait Integumentary/Breasts: Skin/Breast: Denies wounds Neurologic: Denies abnormal gait and Denies behavioral changes Psychiatric: Psychiatric: Denie
[2019-03-22] MEDS: NOREPINEPHRINE 8 MG/D5W 250 ML 8 MG/250 ML BAG 5.6 MG IV CONT (13:28)
[2019-03-22 13:29] LABS: Hematocrit 21.2 % (37.0-47.0)
[2019-03-22 13:34] LABS: Hemoglobin 6.6 g/dL (12.0-15.0)
[2019-03-22] MEDS: PANTOPRAZOLE 40 MG TABLET PO (17:09)
[2019-03-22] MEDS: MONTELUKAST SODIUM 10 MG TABLET PO (21:19)
[2019-03-22 23:43] LABS: Glucose Point of Care 112 (65-105)
[2019-03-23] VITALS (34 sets, daily range): BP systolic 79–136; BP diastolic 51–92; PULSE 75–158; RESP 22–32; TEMP 36.5–37.2; O2SAT 94–100
[2019-03-23] MEDS: IPRATROPIUM BR 0.02% INH SOLN 0.5 MG/2.5 ML VIAL INHALATION ×4 (01:11→19:51)
[2019-03-23] MEDS: MIDAZOLAM HCL 2 MG/2 ML VIAL IV PUSH ×2 (02:03→15:17)
[2019-03-23 04:34] LABS: Osmolality, Urine 366 mOsm/kg (50-1200)
[2019-03-23 04:41] LABS: Alveolar/Arterial O2 Gradient 83.9 mmHg; Base Excess ABG -8.1 mEq/l (+/-2.0); Carboxyhemoglobin 0.3 % THb (0-2.0); Fractional Inspired Oxygen 30 %; HCO3 ABG 15.5 mEq/l (22.0-26.0); Methemoglobin ABG 0.6 %THb (0-1.5); Oxygen Content ABG 10.5 %vol (16.0-22.0); Oxygen Saturation ABG 97.8 % (95.0-100.0); Oxyhemoglobin 96.1 % THb (90.0-100.0); PCO2 ABG 24.9 mmHg (35.0-45.0); PO2 ABG 100.7 mmHg (80.0-100.0); PO2 FiO2 Ratio Arterial Blood 3.36 %; pH ABG 7.412 (7.350-7.450)
[2019-03-23] MEDS: METOPROLOL TARTRATE INJ 5 MG/5 ML VIAL IV PUSH ×5 (06:05→23:15)
[2019-03-23] MEDS: METOCLOPRAMIDE HCL INJ 10 MG/2 ML VIAL IV PUSH (06:05)
[2019-03-23 06:45] LABS: Total Hemoglobin 7.6 g/dL (12.0-18.0)
[2019-03-23 06:46] LABS: Device VENTILATOR; Modified Allen's Test Unable to perform; Site Drawn LEFT RADIAL
[2019-03-23 06:47] LABS: Arterial Blood Gas Ventilator rate 14 /MIN
[2019-03-23 06:48] LABS: Arterial Blood Gas PEEP 8 cmH2O; Arterial Blood Gas Tidal Volume 450 ml; Arterial Blood Gas Vent Mode CMV
[2019-03-23 06:49] LABS: Lactic Acid 0.9 mmol/L (0.7-2.1)
[2019-03-23 06:52] LABS: Blood Urea Nitrogen 45 mg/dL (7-17); Calcium 8.4 mg/dL (8.4-10.2); Carbon Dioxide 16 mmol/L (22-30); Chloride 108 mmol/L (98-107); Estimated CRCL calculation 27 ml/min; Estimated Glomerular Filt Rate 30; Glucose 109 mg/dL (65-105); Magnesium 2.3 mg/dL (1.6-2.3); Phosphorus 5.8 mg/dL (2.5-4.5); Potassium 5.6 mmol/L (3.4-5.0); Sodium 138 mmol/L (137-145)
[2019-03-23] MEDS: THERAPEUTIC MULTIVITAMINS/MINERALS TAB (*BKC) 1 TABLET PO (08:12)
[2019-03-23] MEDS: CYANOCOBALAMIN 1,000 MCG TABLET 1000 MCG PO (08:12)
[2019-03-23] MEDS: MAGNESIUM OXIDE 400 MG TABLET PO ×2 (08:12→20:00)
[2019-03-23] MEDS: THIAMINE HCL 100 MG TABLET PO (08:12)
[2019-03-23] MEDS: FOLIC ACID 1 MG TABLET PO (08:12)
[2019-03-23] MEDS: CHOLESTYRAMINE LIGHT 4 GM POWD.PACK PO ×2 (08:14→17:59)
[2019-03-23 08:17] LABS: Hematocrit 21.7 % (37.0-47.0); Mean Corpuscular HGB Conc 31.3 g/dl (32-36); Mean Corpuscular Hemoglobin 28.2 pg (26-34); Mean Platelet Volume 10.2 fl (7.4-10.4); Platelet Count Result 365 k/mm3 (150-375); Red Blood Count 2.41 M/mm3 (4.2-5.4); Red Cell Distribution Width 16.4 % (11.5-14.5); White Blood Count 33.6 K/mm3 (4.5-10.0)
[2019-03-23] MEDS: INSULIN HUMAN REGULAR (*BKC) 100 UNITS/ML 10 UNITS IV PUSH (08:19)
[2019-03-23] MEDS: DEXTROSE 50% 25 GM/50 ML SYRINGE IV PUSH (08:20)
[2019-03-23] MEDS: SODIUM BICARBONATE 8.4% 50 MEQ/50 ML VIAL IV PUSH (08:20)
[2019-03-23 08:26] LABS: Hemoglobin 6.8 g/dL (12.0-15.0)
[2019-03-23 08:35] LABS: Glucose Point of Care 95 (65-105)
[2019-03-23] MEDS: SODIUM CHLORIDE 0.9% IV 1,000 ML 999 ML IV CONT (08:36)
[2019-03-23] MEDS: MIDAZOLAM HCL 50 MG in DEXTROSE 5% 90 ML IV CONT (09:26)
--- NOTE | 2019-03-23 09:28 | WPDINTPN ---
Progress Note: A&P Assessment and Plan (1) Cardiac arrest: Code(s): I46.9 - Cardiac arrest, cause unspecified Status: Acute Assessment and Plan: patient had cardiac arrest overnight consistent with torsades, went into AFib RVR post resuscitation and then SVT. Patient was cardioverted and given adenosine without success. remains in sinus tachycardia - continue metoprolol, cardiology following the patient - echocardiogram 03/20/2019 shows EF of 30 35%, grade 1 diastolic dysfunction, global hypokinesis of the left ventricle right ventricular function is reduced, moderate pulmonary hypertension with RVSP of 45 mmHg (2) Acute respiratory failure: Code(s): J96.00 - Acute respiratory failure, unspecified whether with hypoxia or hypercapnia Status: Acute Assessment and Plan: Post cardiac arrest patient was having difficulty breathing, found to have pulmonary edema, requiring intubation on 03/20/2019 - chest x-ray and ABGs reviewed, ventilator adjusted - continue bronchodilators - CT scan of the chest On 03/20/2019 did not show any pulmonary emboli, 1.4 cm nodule in the left lower lung lobe suspicious for primary bronchogenic carcinoma, mediastinal and left supraclavicular lymphadenopathy and bilateral adrenal masses consist with metastatic disease. A liver mass and splenic masses suspicious for metastatic disease. - On Precedex, patient does not open her eyes or follow simple commands, is tachypneic and dyssynchronous with the ventilator, patient was given Versed push which improved breathing. tried placing patient on pressure support ventilation, patient was significantly tachypneic, not ready to wean from the ventilator at this time. Will obtain CT scan of the brain (3) Arterial hypotension: Qualifiers: Hypotension type: other hypotension type Qualified Code(s): I95.89 - Other hypotension Code(s): I95.9 - Hypotension, unspecified Status: Resolved Assessment and Plan: patient has been hypotensive likely related to severe tachycardia, hypovolemia, sedation, metoprolol - on Levophed, maintain mean arterial pressures > 65 mmHg - source likely lungs, continue cefepime - appreciate infectious disease elevation and recommendation (4) Symptomatic anemia: Code(s): D64.9 - Anemia, unspecified Status: Acute Assessment and Plan: Anemia of chronic disease versus bone marrow disease. Patient does have a poor p.o intake but anemia appear to be too severe for anemia of chronic disease .Records from [facility] reviewed . Patient has early recent admission 03/07/2019 and had received multiple blood transfusions for hemoglobin of 4. EGD was also done which was negative. Patient refused colonoscopy though she has been having some diarrhea. - She has received 5 units of packed RBC since admission. - d/w heme, may need bone marrow bx. - patient received 1 unit of packed RBCs on 03/22/2019, hemoglobin this morning is 6.8, will transfuse 1 more unit of PRBC (5) Lung cancer: Qualifiers: Laterality: unspecified laterality Lung location: unspecified part of lung Qualified Code(s): C34.90 - Malignant neoplasm of unspecified part of unspecified bronchus or lung Code(s): C34.90 - Malignant neoplasm of unspecified part of unspecified bronchus or lung Status: Chronic Assessment and Plan: As per records from [facility] patient has on on non differentiated non small-cell lung cancer diagnose 01/22/2019. - Mets to the adrenal bilaterally which have increased in size, along with spleen and right hepatic lobe as mentioned in the CT abdomen pelvis as under - not a candidate currently for chemotherapy given a performance status at this time - appreciate hematology/oncology following the patient (6) Leukocytosis: Qualifiers: Leukocytosis type: unspecified Qualified
[2019-03-23 10:40] LABS: Blood Urea Nitrogen 46 mg/dL (7-17); Calcium 8.1 mg/dL (8.4-10.2); Carbon Dioxide 17 mmol/L (22-30); Chloride 110 mmol/L (98-107); Estimated CRCL calculation 27 ml/min; Estimated Glomerular Filt Rate 30; Glucose 108 mg/dL (65-105); Potassium 5.1 mmol/L (3.4-5.0); Sodium 139 mmol/L (137-145)
[2019-03-23] MEDS: SODIUM CHLORIDE 0.9% IV 250 ML 30 ML IV CONT (11:25)
[2019-03-23] MEDS: TUBING, BLOOD PLUM PUMP TUBING 1 EACH XX (11:26)
--- NOTE | 2019-03-23 13:53 | P.PNNP_ITS ---
Progress Note: A&P Assessment and Plan (1) Hypokalemia: Code(s): E87.6 - Hypokalemia Status: Acute Assessment and Plan: * noted since admission * suspect due to total body store depletion from poor oral intake, diarrhea...e worsened by her hypomagnesemia * urine electrolytes c/w prerenal azotemia * however, given her history of hypertension and metastatic lesions in her adrenal gland, can not discount some type of mineralcorticoid excess syndrome of [place]... - given her current status, will be difficult to evaluate this * for now, would repleted K+ and Mg++ PRN and re-evaluate when she clinically improves for current illness although this may not be necessary given #2 (2) Acute kidney failure, unspecified: Code(s): N17.9 - Acute kidney failure, unspecified Status: Acute Assessment and Plan: * multifactorial etiology: - prerenal factors - hemodynamic instability/shock/cardiac arrest - reduce ejection fraction/cardiomyopathy - contrast exposure * creatinine continues to rise * now with decreasing UOP, mild hyperkalemia, and metabolic acidosis * may need dialytic support if condition does not improve.... (3) Cardiac arrest: Code(s): I46.9 - Cardiac arrest, cause unspecified Status: Acute Assessment and Plan: * precipitated by Torsades * Echo results noted * Cardiology following (4) Acute respiratory failure: Code(s): J96.00 - Acute respiratory failure, unspecified whether with hypoxia or hyperca pnia Status: Acute Assessment and Plan: * secondary to cardiac arrest and pulmonary edema * remains on mechanical ventilation * wean as tolerated (5) Symptomatic anemia: Code(s): D64.9 - Anemia, unspecified Status: Acute Assessment and Plan: * etiology not entirely clear * she is suspectible to this given her metastatic lung cancer * her LALY may be a contributing component as well * Dr. Jensen following (6) Lung cancer: Qualifiers: Laterality: unspecified laterality Lung location: unspecified part of lung Qualified Code(s): C34.90 - Malignant neoplasm of unspecified part of unspecified bronchus or lung Code(s): C34.90 - Malignant neoplasm of unspecified part of unspecified bronchus or lung Status: Chronic Assessment and Plan: * metastatic as noted by recent imaging studies * not currently on any treatment Will continue to follow. Additional Plan Subjective Date/time seen: 03/23/19 13:53 No real significant change other than trend of labs -- creatinine worse associated with mild hyperkalemia and decreased urine output; remains on full ventilator support as well. Exam Narrative: Exam Narrative: General: WD/WN female in NAD Heart: normal S1 and S2; no rub Lungs: coarse breath sounds throughout Abdomen: soft, nontender, nondistended, positive bowel sounds Extremities: no cyanosis or clubbing; 1+ edema Skin: warm and dry Objective Data Vital Signs Vital Signs: Vital Signs Temp Pulse Resp BP Pulse Ox 03/23/19 12:49 36.6 C 75 28 H 94/60 L 100 03/23/19 12:00 36.6 C 79 28 H 91/59 L 100 03/23/19 11:49 36.6 C 80 25 H 88/58 L 100 03/23/19 11:28 36.5 C 88 28 H 97/60 L 96 03/23/19 11:26 86 03/23/19 11:10 88 100 03/23/19 10:30 101 H 31 H 97/64 L 100 03/23/19 10:00
--- NOTE | 2019-03-23 13:53 | PM.PNNEP ---
Progress Note: A&P Assessment and Plan (1) Hypokalemia: Code(s): E87.6 - Hypokalemia Status: Acute Assessment and Plan: noted since admission suspect due to total body store depletion from poor oral intake, diarrhea...e worsened by her hypomagnesemia urine electrolytes c/w prerenal azotemia however, given her history of hypertension and metastatic lesions in her adrenal gland, can not discount some type of mineralcorticoid excess syndrome of [place]... - given her current status, will be difficult to evaluate this for now, would repleted K+ and Mg++ PRN and re-evaluate when she clinically improves for current illness although this may not be necessary given #2 (2) Acute kidney failure, unspecified: Code(s): N17.9 - Acute kidney failure, unspecified Status: Acute Assessment and Plan: multifactorial etiology: - prerenal factors - hemodynamic instability/shock/cardiac arrest - reduce ejection fraction/cardiomyopathy - contrast exposure creatinine continues to rise now with decreasing UOP, mild hyperkalemia, and metabolic acidosis may need dialytic support if condition does not improve.... (3) Cardiac arrest: Code(s): I46.9 - Cardiac arrest, cause unspecified Status: Acute Assessment and Plan: precipitated by Torsades Echo results noted Cardiology following (4) Acute respiratory failure: Code(s): J96.00 - Acute respiratory failure, unspecified whether with hypoxia or hypercapnia Status: Acute Assessment and Plan: secondary to cardiac arrest and pulmonary edema remains on mechanical ventilation wean as tolerated (5) Symptomatic anemia: Code(s): D64.9 - Anemia, unspecified Status: Acute Assessment and Plan: etiology not entirely clear she is suspectible to this given her metastatic lung cancer her LALY may be a contributing component as well Dr. Jensen following (6) Lung cancer: Qualifiers: Laterality: unspecified laterality Lung location: unspecified part of lung Qualified Code(s): C34.90 - Malignant neoplasm of unspecified part of unspecified bronchus or lung Code(s): C34.90 - Malignant neoplasm of unspecified part of unspecified bronchus or lung Status: Chronic Assessment and Plan: metastatic as noted by recent imaging studies not currently on any treatment Will continue to follow. Additional Plan Subjective Date/time seen: 03/23/19 13:53 No real significant change other than trend of labs -- creatinine worse associated with mild hyperkalemia and decreased urine output; remains on full ventilator support as well. Exam Narrative: Exam Narrative: General: WD/WN female in NAD Heart: normal S1 and S2; no rub Lungs: coarse breath sounds throughout Abdomen: soft, nontender, nondistended, positive bowel sounds Extremities: no cyanosis or clubbing; 1+ edema Skin: warm and dry Objective Data Vital Signs Vital Signs: Vital Signs Temp Pulse Resp BP Pulse Ox 03/23/19 12:49 36.6 C 75 28 H 94/60 L 100 03/23/19 12:00 36.6 C 79 28 H 91/59 L 100 03/23/19 11:49 36.6 C 80 25 H 88/58 L 100 03/23/19 11:28 36.5 C 88 28 H 97/60 L 96 03/23/19 11:26 86 03/23/19 11:10 88 100 03/23/19 10:30 101 H 31 H 97/64 L 100 03/23/19 10:00 104 H 03/23/19 08:00 37.2 C 146 H 27 H 79/51 L 94 03/23/19 07:55 110 H 26 H 03/23/19 07:45 112 H 27 H 100 03/23/19 06:05 87 03/23/19 06:00 87 26 H 99/65 L 100 03/23/19 04:43 96 100 03/23/19 04:00 37.1 C 95 28 H 98/64 L 100 03/23/19 02:00 107 H 27 H 103/64 99 03/23/19 01:20 90 26 H 03/23/19 01:11 90 27 H 100 03/23/19 00:00 37.1 C 87 24 H 89/60 L 100 03/22/19 23:25 94 03/22/19 22:51 93 100 03/22/19 22:00 94 16 95/61 L 100 03/22/19 20:00 36.8 C 101 H 25 H 114/73 100 03/22/19 19:58
[2019-03-23] MEDS: LORAZEPAM INJ 2 MG/ML VIAL IV PUSH (15:31)
--- NOTE | 2019-03-23 15:35 | PM.PNCARD ---
Progress Note: A&P Assessment and Plan (1) Cardiac arrest: Code(s): I46.9 - Cardiac arrest, cause unspecified Status: Acute Assessment and Plan: Continue current management at this time. 1L IVF bolus this AM due to worsening renal function and declining UO. CXR obtained this after noon now with diffuse pulm vasc congestion whereas it was clear this AM. Give IV LAsix and observe. She remains on FIO2 .30 99% Caution given cardiomyopathy with EF 30-35%. Workup for cardiomyopathy as appropriate was patient is further stabilized. PT critically ill. Prognosis poor. Cautious balance with BB, LV function, shock on pressors. Ideally, would like to avoid/minimize, however, HR goes >160bpm which is counterproductive. Initial cardiac arrest consistent with torsades de pointes. Resuscitated and patient was awake after resuscitation but she became more and severely short of breath shortly thereafter. She was subsequently intubated. Rhythm was severely tachycardic. Measures were taken to try to slow her heart rate including treatment for possible atrial fibrillation with diltiazem, cardioversion. Adenosine was also used. Heart rate did slow but it has been in the 140s consistently and currently appears to be in sinus rhythm/tachycardia. She should keep her potassium at least above 4. Metoprolol 5 mg IV Q 6 hours as blood pressure tolerates is also written. (2) Hypokalemia: Code(s): E87.6 - Hypokalemia Status: Acute Assessment and Plan: As above. Keep potassium greater than 4 (3) Symptomatic anemia: Code(s): D64.9 - Anemia, unspecified Status: Acute Assessment and Plan: Status post several units of blood but still significantly anemic. Workup per garage door hanger and other services (4) Lung cancer: Qualifiers: Laterality: unspecified laterality Lung location: unspecified part of lung Qualified Code(s): C34.90 - Malignant neoplasm of unspecified part of unspecified bronchus or lung Code(s): C34.90 - Malignant neoplasm of unspecified part of unspecified bronchus or lung Status: Chronic Assessment and Plan: Recent diagnosis. per primary service Remains intubated respiratory failure. Not tolerating tube feeds as per Critical Care. Patient critically ill. Prognosis poor. Clinically, patient developing multiorgan system involvement which portends worsening prognosis. Additional Plan VFib arrest in the setting of metastatic non-small cell lung cancer and profound normocytic anemia. Patient was also hypokalemic at the time of the arrest. Seems to be tolerating metoprolol 50 mg q.12 hours for the time being which will help her functional sinus tachycardia. Levophed is being weaned. Subjective Date/time seen: 03/23/19 15:35 Interval history: Follow-up visit for VFib arrest History of metastatic non-small cell lung carcinoma Profound normocytic anemia etiology as yet undetermined. Left ventricular systolic dysfunction noted on echocardiogram following resuscitation Sinus tachycardia responding as expected to metoprolol. Patient intubated/sedated. Unable to provide history. Urine output declining, renal function worsening. Heart rate better controlled the most part in 80s to 90s but occasionally increases up to 140s appears consistent with sinus tachycardia.. Not tolerating tube feeds. patient remains on Norepinephrine. Cousin at bedside. Review of Systems Review of Systems: All systems reviewed & are unremarkable except as noted in HPI and below ROS unobtainable: unobtainable due to endotracheal tube Constitutional: Constitutional: Denies chills and Denies fatigue Eyes: Eyes: Reports as per HPI and Denies no additional eye complaints ENT: Reports as per HPI and Denies lip swelling Cardiovascular: Cardiovascular: Reports as per HPI Respiratory: Respiratory: Reports as per HPI and Denies hemoptysis Gastrointestinal: Gastrointestinal: Reports
[2019-03-23] MEDS: FUROSEMIDE INJ 40 MG/4 ML VIAL IV PUSH (15:41)
--- NOTE | 2019-03-23 15:57 | ECG_ITS ---
Measurements Intervals [place] Rate: 146 P: 66 [place]: 140 QRS: 30 QRSD: 104 T: 72 QT: 326 QTc: 509 Interpretive Statements SINUS TACHYCARDIA, POSSIBLE ATRIAL FLUTTER LOW QRS VOLTAGE IN LIMB LEADS BORDERLINE T WAVE ABNORMALITY- LATERAL LEADS ABNORMAL ECG Electronically Signed On 03-23-2019 16:43:16 [employer]ENTER CONSULTANT by Salvatore Vang D.O.
--- NOTE | 2019-03-23 17:36 | P.PNIM_ITS ---
Progress Note: A&P Assessment and Plan (1) Symptomatic anemia: Code(s): D64.9 - Anemia, unspecified Status: Acute Assessment and Plan: * likely due to lung ca and tx * 03/20 hgb 7.8 * 03/21 hgb 7.4 * 03/22 hgb 7.0 * 03/23 hgb 6.8, 1 U PRBC ordered (2) Arterial hypotension: Qualifiers: Hypotension type: other hypotension type Qualified Code(s): I95.89 - Other hypotension Code(s): I95.9 - Hypotension, unspecified Status: Resolved Assessment and Plan: * anemia, dehydration, sepsis * 03/19 FENA 2.3% c/w prerenal etiology * 03/23 continue attempts at weaning norepinephrine (3) Lung cancer: Qualifiers: Laterality: unspecified laterality Lung location: unspecified part of lung Qualified Code(s): C34.90 - Malignant neoplasm of unspecified part of unspecified bronchus or lung Code(s): C34.90 - Malignant neoplasm of unspecified part of unspecified bronchus or lung Status: Chronic Assessment and Plan: * poor px * oncology input appreciated (4) Leukocytosis: Qualifiers: Leukocytosis type: unspecified Qualified Code(s): D72.829 - Elevated white blood cell count, unspecified Code(s): D72.829 - Elevated white blood cell count, unspecified Status: Acute Assessment and Plan: * possible sepsis due to colitis vs pulmonary source (urine culture negative) * cefepime for latter (5) Thrombocytosis: Code(s): D47.3 - Essential (hemorrhagic) thrombocythemia Status: Acute Assessment and Plan: * due to lung ca, sepsis (6) Hypokalemia: Code(s): E87.6 - Hypokalemia Status: Acute Assessment and Plan: * 2/ 3.6 after k-rider * 03/21 3.3, supplement * 2.8 4.4 * 03/23 5.1 (7) Tachycardia: Code(s): R00.0 - Tachycardia, unspecified Status: Acute Assessment and Plan: * pulseless VT early AM 03/20, code blue * SVT did not respond to adenosine 03/20 AM * Metoprolol maintaining HR 110s-120s (8) Acute kidney injury: Code(s): N17.9 - Acute kidney failure, unspecified Status: Acute Assessment and Plan: * 03/23 creatinine up to 2.1 (9) Cardiac arrest: Code(s): I46.9 - Cardiac arrest, cause unspecified Status: Acute Assessment and Plan: * pulseless VT early AM 26, code blue Subjective Date/time seen: 03/23/19 17:36 Interval history: Sedated on vent. Review of Systems Review of Systems: ROS unobtainable: unobtainable due to mental condition Exam Narrative: Exam Narrative: HEENT: ET tube and OG tube in place NECK: No JVD CHEST: coarse BS HEART: NL S1/S2, tachycardic ABDOMEN: BS+, soft, nontender, no mass, no bruits EXTREMITIES: No cyanosis, edema, or clubbing NEUROLOGIC: CN intact and symmetric to inspection. MUSCULOSKELETAL: Tone and strength symmetric. PSYCH: Alert. Oriented to person, place, and time. Objective Data Vital Signs Vital Signs: Vital Signs - 24 hr 03/22/19 17:53 03/22/19 18:00 03/22/19 19:47 Temperature Pulse Rate 97 101 H 99 Respiratory Rate 24 H 24 H Blood Pressure 86/57 L Pulse Oximetry 100 100 100 03/22/19 19:58 03/22/19 20:00 03/22/19 22:00 Temperature 98.3 F Pulse Rate 98 101 H 94 Respiratory Rate 24 H 25 H 16 Blood Pressure 114/73 95/61 L Pulse Ox
--- NOTE | 2019-03-23 17:36 | PM.IMPN ---
Progress Note: A&P Assessment and Plan (1) Symptomatic anemia: Code(s): D64.9 - Anemia, unspecified Status: Acute Assessment and Plan: likely due to lung ca and tx 03/20 hgb 7.8 03/21 hgb 7.4 03/22 hgb 7.0 03/23 hgb 6.8, 1 U PRBC ordered (2) Arterial hypotension: Qualifiers: Hypotension type: other hypotension type Qualified Code(s): I95.89 - Other hypotension Code(s): I95.9 - Hypotension, unspecified Status: Resolved Assessment and Plan: anemia, dehydration, sepsis 03/19 FENA 2.3% c/w prerenal etiology 03/23 continue attempts at weaning norepinephrine (3) Lung cancer: Qualifiers: Laterality: unspecified laterality Lung location: unspecified part of lung Qualified Code(s): C34.90 - Malignant neoplasm of unspecified part of unspecified bronchus or lung Code(s): C34.90 - Malignant neoplasm of unspecified part of unspecified bronchus or lung Status: Chronic Assessment and Plan: poor px oncology input appreciated (4) Leukocytosis: Qualifiers: Leukocytosis type: unspecified Qualified Code(s): D72.829 - Elevated white blood cell count, unspecified Code(s): D72.829 - Elevated white blood cell count, unspecified Status: Acute Assessment and Plan: possible sepsis due to colitis vs pulmonary source (urine culture negative) cefepime for latter (5) Thrombocytosis: Code(s): D47.3 - Essential (hemorrhagic) thrombocythemia Status: Acute Assessment and Plan: due to lung ca, sepsis (6) Hypokalemia: Code(s): E87.6 - Hypokalemia Status: Acute Assessment and Plan: 03/20 3.6 after k-rider 03/21 3.3, supplement 2.8 4.4 03/23 5.1 (7) Tachycardia: Code(s): R00.0 - Tachycardia, unspecified Status: Acute Assessment and Plan: pulseless VT early AM 03/20, code blue SVT did not respond to adenosine 03/20 AM Metoprolol maintaining HR 110s-120s (8) Acute kidney injury: Code(s): N17.9 - Acute kidney failure, unspecified Status: Acute Assessment and Plan: 03/23 creatinine up to 2.1 (9) Cardiac arrest: Code(s): I46.9 - Cardiac arrest, cause unspecified Status: Acute Assessment and Plan: pulseless VT early AM 03/20, code blue Subjective Date/time seen: 03/23/19 17:36 Interval history: Sedated on vent. Review of Systems Review of Systems: ROS unobtainable: unobtainable due to mental condition Exam Narrative: Exam Narrative: HEENT: ET tube and OG tube in place NECK: No JVD CHEST: coarse BS HEART: NL S1/S2, tachycardic ABDOMEN: BS+, soft, nontender, no mass, no bruits EXTREMITIES: No cyanosis, edema, or clubbing NEUROLOGIC: CN intact and symmetric to inspection. MUSCULOSKELETAL: Tone and strength symmetric. PSYCH: Alert. Oriented to person, place, and time. Objective Data Vital Signs Vital Signs: Vital Signs - 24 hr 03/22/19 17:53 03/22/19 18:00 03/22/19 19:47 Temperature Pulse Rate 97 101 H 99 Respiratory Rate 24 H 24 H Blood Pressure 86/57 L Pulse Oximetry 100 100 100 03/22/19 19:58 03/22/19 20:00 03/22/19 22:00 Temperature 98.3 F Pulse Rate 98 101 H 94 Respiratory Rate 24 H 25 H 16 Blood Pressure 114/73 95/61 L Pulse Oximetry 100 100 03/22/19 22:51 03/22/19 23:25 03/23/19 00:00 Temperature 98.7 F Pulse Rate 93 94 87 Respiratory Rate 24 H Blood Pressure 89/60 L Pulse Oximetry 100 100 03/23/19 01:11 03/23/19 01:20 03/23/19 02:00 Temperature Pulse Rate 90 90 107 H Respiratory Rate 27 H 26 H 27 H Blood Pressure 103/64 Pulse Oximetry 100 99 03/23/19 04:00 03/23/19 04:43 03/23/19 06:00 Temperature 98.7 F Pulse Rate 95 96 87 Respiratory Rate 28 H 26 H Blood Pressure 98/64 L 99/65 L Pulse Oximetry 100 100 100 03/23/19 06:05 03/23/19 07:45 03/23/19 07:55 Temperature Pulse Rate 87 112 H 110 H Respiratory Rate 27 H 26 H Blood Pressure
[2019-03-23] MEDS: PANTOPRAZOLE 40 MG TABLET PO (17:59)
[2019-03-23] MEDS: NOREPINEPHRINE 8 MG/D5W 250 ML 8 MG/250 ML BAG 5.6 MG IV CONT (18:31)
--- NOTE | 2019-03-23 18:34 | PC.NURSE ---
Unable to edit Levophed on flow sheet from 1800 entry patient had 10 ml remaining in bag at that time and continued to run at 3mcg//min until bag was changed at this time.
[2019-03-23] MEDS: MONTELUKAST SODIUM 10 MG TABLET PO (20:01)
[2019-03-24] VITALS (30 sets, daily range): BP systolic 87–129; BP diastolic 51–82; PULSE 128–184; RESP 3–37; TEMP 36.7–37.6; O2SAT 94–99
[2019-03-24] MEDS: MIDAZOLAM HCL 50 MG in DEXTROSE 5% 90 ML 10 MG IV CONT (00:32)
[2019-03-24] MEDS: IPRATROPIUM BR 0.02% INH SOLN 0.5 MG/2.5 ML VIAL INHALATION ×4 (01:13→19:53)
[2019-03-24 04:15] LABS: Alveolar/Arterial O2 Gradient 101.8 mmHg; Base Excess ABG -8.2 mEq/l (+/-2.0); Carboxyhemoglobin 0.1 % THb (0-2.0); Fractional Inspired Oxygen 30 %; HCO3 ABG 15.8 mEq/l (22.0-26.0); Methemoglobin ABG 0.5 %THb (0-1.5); Oxygen Content ABG 14.9 %vol (16.0-22.0); Oxygen Saturation ABG 95.6 % (95.0-100.0); Oxyhemoglobin 94.4 % THb (90.0-100.0); PCO2 ABG 27.9 mmHg (35.0-45.0); PO2 ABG 79.3 mmHg (80.0-100.0); PO2 FiO2 Ratio Arterial Blood 2.64 %; Total Hemoglobin 11.2 g/dL (12.0-18.0)
[2019-03-24 04:16] LABS: Device VENTILATOR; Modified Allen's Test Pass; Site Drawn RIGHT RADIAL
[2019-03-24 04:17] LABS: Arterial Blood Gas PEEP 8 cmH2O; Arterial Blood Gas Tidal Volume 400 ml; Arterial Blood Gas Vent Mode CMV; Arterial Blood Gas Ventilator rate 16 /MIN
[2019-03-24] MEDS: METOPROLOL TARTRATE INJ 5 MG/5 ML VIAL IV PUSH ×3 (06:21→20:59)
[2019-03-24 06:23] LABS: Hematocrit 26.8 % (37.0-47.0); Hemoglobin 8.5 g/dL (12.0-15.0); Mean Corpuscular HGB Conc 31.7 g/dl (32-36); Mean Corpuscular Hemoglobin 28.8 pg (26-34); Mean Corpuscular Volume 90.8 fl (80-100); Mean Platelet Volume 10.4 fl (7.4-10.4); Platelet Count Result 370 k/mm3 (150-375); Red Blood Count 2.95 M/mm3 (4.2-5.4); Red Cell Distribution Width 16.1 % (11.5-14.5); White Blood Count 36.3 K/mm3 (4.5-10.0)
[2019-03-24 06:57] LABS: Lactic Acid 0.8 mmol/L (0.7-2.1)
[2019-03-24 07:36] LABS: Blood Urea Nitrogen 53 mg/dL (7-17); Calcium 8.6 mg/dL (8.4-10.2); Carbon Dioxide 16 mmol/L (22-30); Chloride 109 mmol/L (98-107); Estimated CRCL calculation 30 ml/min; Estimated Glomerular Filt Rate 30; Glucose 83 mg/dL (65-105); Magnesium 2.2 mg/dL (1.6-2.3); Phosphorus 6.5 mg/dL (2.5-4.5); Potassium 5.1 mmol/L (3.4-5.0); Sodium 141 mmol/L (137-145)
[2019-03-24] MEDS: SODIUM BICARBONATE 8.4% 150 MEQ in DEXTROSE 5% 1,000 ML 950 ML 50 MEQ IV CONT (08:49)
[2019-03-24] MEDS: FOLIC ACID 1 MG TABLET PO (08:57)
[2019-03-24] MEDS: THERAPEUTIC MULTIVITAMINS/MINERALS TAB (*BKC) 1 TABLET PO (08:57)
[2019-03-24] MEDS: MAGNESIUM OXIDE 400 MG TABLET PO ×2 (08:57→20:28)
[2019-03-24] MEDS: CYANOCOBALAMIN 1,000 MCG TABLET 1000 MCG PO (08:57)
[2019-03-24] MEDS: THIAMINE HCL 100 MG TABLET PO (08:57)
--- NOTE | 2019-03-24 09:15 | WPDINTPN ---
Progress Note: A&P Assessment and Plan (1) Cardiac arrest: Code(s): I46.9 - Cardiac arrest, cause unspecified Status: Acute Assessment and Plan: patient had cardiac arrest overnight consistent with torsades, went into AFib RVR post resuscitation and then SVT. Patient was cardioverted and given adenosine without success. remains in sinus tachycardia - continue metoprolol, cardiology following the patient - echocardiogram 03/20/2019 shows EF of 30 35%, grade 1 diastolic dysfunction, global hypokinesis of the left ventricle right ventricular function is reduced, moderate pulmonary hypertension with RVSP of 45 mmHg (2) Acute respiratory failure: Code(s): J96.00 - Acute respiratory failure, unspecified whether with hypoxia or hypercapnia Status: Acute Assessment and Plan: Post cardiac arrest patient was having difficulty breathing, found to have pulmonary edema, requiring intubation on 03/20/2019 - chest x-ray and ABGs reviewed, ventilator adjusted - continue bronchodilators - CT scan of the chest On 03/20/2019 did not show any pulmonary emboli, 1.4 cm nodule in the left lower lung lobe suspicious for primary bronchogenic carcinoma, mediastinal and left supraclavicular lymphadenopathy and bilateral adrenal masses consist with metastatic disease. A liver mass and splenic masses suspicious for metastatic disease. - patient was dyssynchronous with the ventilator on Precedex infusion so was switched to fentanyl and Versed with much improvement. (3) Arterial hypotension: Qualifiers: Hypotension type: other hypotension type Qualified Code(s): I95.89 - Other hypotension Code(s): I95.9 - Hypotension, unspecified Status: Resolved Assessment and Plan: OFF LEVOPHED: patient has been hypotensive likely related to severe tachycardia, hypovolemia, sedation meds, metoprolol - source likely lungs, continue cefepime - appreciate infectious disease elevation and recommendation (4) Symptomatic anemia: Code(s): D64.9 - Anemia, unspecified Status: Acute Assessment and Plan: Anemia of chronic disease versus bone marrow disease. Patient does have a poor p.o intake but anemia appear to be too severe for anemia of chronic disease .Records from [facility] reviewed . Patient has early recent admission 03/07/2019 and had received multiple blood transfusions for hemoglobin of 4. EGD was also done which was negative. Patient refused colonoscopy though she has been having some diarrhea. - She has received 7 units of packed RBC since admission. - d/w heme, may need bone marrow bx. (5) Lung cancer: Qualifiers: Laterality: unspecified laterality Lung location: unspecified part of lung Qualified Code(s): C34.90 - Malignant neoplasm of unspecified part of unspecified bronchus or lung Code(s): C34.90 - Malignant neoplasm of unspecified part of unspecified bronchus or lung Status: Chronic Assessment and Plan: As per records from [facility] patient has on on non differentiated non small-cell lung cancer diagnose 01/22/2019. - Mets to the adrenal bilaterally which have increased in size, along with spleen and right hepatic lobe as mentioned in the CT abdomen pelvis as under - not a candidate currently for chemotherapy given a performance status at this time - appreciate hematology/oncology following the patient (6) Leukocytosis: Qualifiers: Leukocytosis type: unspecified Qualified Code(s): D72.829 - Elevated white blood cell count, unspecified Code(s): D72.829 - Elevated white blood cell count, unspecified Status: Acute Assessment and Plan: elevated WBCs, likely related to pneumonia, lung cancer. Continue cefepime per Infectious Disease - blood cultures negative x2 - wound culture negative - stool cultures - E coli, Salmonella, Shigella,
[2019-03-24] MEDS: DEXTROSE 50% 25 GM/50 ML SYRINGE IV PUSH (09:21)
[2019-03-24] MEDS: INSULIN HUMAN REGULAR (*BKC) 100 UNITS/ML 10 UNITS IV PUSH (09:22)
[2019-03-24] MEDS: SODIUM BICARBONATE 8.4% 50 MEQ/50 ML VIAL IV PUSH (09:22)
--- NOTE | 2019-03-24 10:12 | PM.PNCARD ---
Progress Note: A&P Time Spent With Patient Time: Very unfortunate 53-year-old black female with metastatic lung cancer Patient has impressive sinus tachycardia which of course is not completely unexpected given the circumstances but her heart rate is faster than 1 would typically fine. Despite beta-oswald therapy she continues to be tachycardic. Treatment of this with correlate or could be considered however given her very poor prognosis with her metastatic malignancy I would probably find it difficult to justify this. Continue supportive care and ongoing discussions should be had with the family regarding her level of treatment aggressiveness and code status. Time with patient: 15 - 25 minutes Subjective Date/time seen: Date of service: 03/24/19 10:12 Interval history: Follow-up visit for sinus tachycardia Unfortunate 53-year-old lady with metastatic lung cancer and now demonstrating evidence of multi system dysfunction Intubated sedated in the ICU Exam Const: General: comfortable and no acute distress Eyes: Sclera: sclerae normal Pupils: Equal, round and reactive pupils present Neck: Neck: supple Thyroid: thyroid normal Resp: Other: Intubated on mechanical ventilator breath sounds relatively clear Cardio: Rate: regular rate and tachycardic Rhythm: regular rhythm GI: Auscultation: normal bowel sounds Objective Data Vital Signs Vital Signs: Vital Signs - 24 hr 03/23/19 10:30 03/23/19 11:10 03/23/19 11:26 Temperature Pulse Rate 101 H 88 86 Respiratory Rate 31 H Blood Pressure 97/64 L Pulse Oximetry 100 100 03/23/19 11:28 03/23/19 11:49 03/23/19 12:00 Temperature 36.5 C 36.6 C 36.6 C Pulse Rate 88 80 79 Respiratory Rate 28 H 25 H 28 H Blood Pressure 97/60 L 88/58 L 91/59 L Pulse Oximetry 96 100 100 03/23/19 12:49 03/23/19 13:49 03/23/19 14:00 Temperature 36.6 C 36.6 C Pulse Rate 75 83 120 H Respiratory Rate 28 H 27 H 28 H Blood Pressure 94/60 L 104/69 101/62 Pulse Oximetry 100 100 100 03/23/19 14:09 03/23/19 14:20 03/23/19 14:30 Temperature 36.8 C Pulse Rate 85 110 H 111 H Respiratory Rate 28 H 30 H 30 H Blood Pressure 101/62 Pulse Oximetry 100 99 03/23/19 16:00 03/23/19 17:25 03/23/19 18:00 Temperature 36.6 C Pulse Rate 146 H 98 132 H Respiratory Rate 23 H 32 H Blood Pressure 136/92 H 101/76 Pulse Oximetry 96 99 100 03/23/19 19:52 03/23/19 19:55 03/23/19 20:00 Temperature 36.8 C Pulse Rate 144 H 135 H 137 H Respiratory Rate 22 H 30 H Blood Pressure 84/52 L Pulse Oximetry 99 99 03/23/19 21:46 03/23/19 22:00 03/23/19 22:11 Temperature Pulse Rate 157 H 149 H 148 H Respiratory Rate 29 H Blood Pressure 108/74 Pulse Oximetry 99 99 03/23/19 23:15 03/24/19 00:00 03/24/19 01:13 Temperature 37.3 C Pulse Rate 158 H 143 H 152 H Respiratory Rate 37 H 36 H Blood Pressure 109/77 Pulse Oximetry 99 03/24/19 01:16 03/24/19 01:29 03/24/19 02:00 Temperature Pulse Rate 153 H 148 H 152 H Respiratory Rate 33 H 31 H Blood Pressure 129/78 Pulse Oximetry 99 97 03/24/19 04:00 03/24/19 05:17 03/24/19 06:00 Temperature 37.6 C Pulse Rate 148 H 148 H 153 H Respiratory Rate 26 H 30 H Blood Pressure 98/60 L 104/69 Pulse Oximetry 97 98 97 03/24/19 06:21 03/24/19 07:46 03/24/19 08:22 Temperature 37.2 C Pulse Rate 154 H 134 H 135 H Respiratory Rate 27 H 25 H Blood Pressure 92/58 L Pulse Oximetry 98 03/24/19 09:00 Temperature Pulse Rate 136 H Respiratory Rate 22 H Blood Pressure Pulse Oximetry Intake/Output Intake/Output: Intake & Output 03/21/19 03/22/19 03/23/19 03/24/19 23:59 23:59 23:59 23:59 Intake Total 1900 1657.0 2434.9 331 Output Total 975 475 500 650 Balance 925 1182.0 1934.9 -319 Meds/Results Medications: Active Medications Generic Name Dose Route Start Last Admin Trade Name Freq PRN Reason Stop Dose Admin Budesonide/Formoterol Fumarate 2 puff 03/18/19 20:00 03/20/
[2019-03-24] MEDS: MIDAZOLAM HCL 50 MG in DEXTROSE 5% 90 ML 12 MG IV CONT ×2 (10:18→21:09)
[2019-03-24] MEDS: CHOLESTYRAMINE LIGHT 4 GM POWD.PACK PO ×2 (10:19→18:43)
--- NOTE | 2019-03-24 11:19 | PCDIET ---
ICU Rounding Note: Patient was started on Two Bryan HN but is currently on hold with residuals up to 275mL while on 10mL/hr rate. KUB showed no obstruction. +BM. MD to order Reglan and re-start tube feedings. Last recorded weight is 77.3kg which is decreased from last review. Bowel Motility: +BM today. Labs Reviewed: BUN (53), Cr (2.1), K (5.1), PO4 (6.5), Hgb (8.5), Hct (26.8) Meds Noted: Cefepime, Vitamin B12, Folic Acid, MVI, Questran, Fentanyl, Mag-Ox, Versed, Protonix, KCl, Vitamin B1 Additional Notes: Buttocks macerated. Agree with plan to initiate tube feedings with Reglan. Following daily in ICU rounds. Assessing/reassessing every Sunday/Sunday.
[2019-03-24] MEDS: METOCLOPRAMIDE HCL INJ 10 MG/2 ML VIAL IV PUSH ×2 (11:22→18:43)
--- NOTE | 2019-03-24 12:18 | WPDINFPN2 ---
Progress Note: A&P Assessment and Plan (1) Leukocytosis: Qualifiers: Leukocytosis type: unspecified Qualified Code(s): D72.829 - Elevated white blood cell count, unspecified Code(s): D72.829 - Elevated white blood cell count, unspecified Status: Acute Assessment and Plan: 1. Chronic (2 months if not more) leukocytosis, due to lung cancer 2. Hypotension - HCAP? CXR noted 3. Report of + C diff test,low suspicion for C diff infection at present. The pancolitis seen on CT is also chronic though worse now. 4. NSCLC, metastatic to anterior mediastinum and bilateral adrenals REC Cefepime #5 / 7 days, continue. Updated family at bedside. Subjective Date/time seen: 03/24/19 12:18 Interval history: sedated and intubated Exam Narrative: Exam Narrative: t max 37.6 Const: General: no acute distress Eyes: General: appearance normal, both eyes and all related structures Resp: Effort & Inspection: normal respiratory effort Auscultation: clear to auscultation bilaterally Cardio: Rate: tachycardic Rhythm: regular rhythm Heart sounds: no gallops and no murmurs GI: Inspection: non-distended GI Palp: Yes Soft to palpation and No Tenderness to palpation present (GI) Urinary Catheter: Urinary Catheter: patent and draining and urine clear Extrem: General: no edema Objective Data Vital Signs Vital Signs: Vital Signs - 24 hr 03/23/19 12:49 03/23/19 13:49 03/23/19 14:00 Temperature 36.6 C 36.6 C Pulse Rate 75 83 120 H Respiratory Rate 28 H 27 H 28 H Blood Pressure 94/60 L 104/69 101/62 Pulse Oximetry 100 100 100 03/23/19 14:09 03/23/19 14:20 03/23/19 14:30 Temperature 36.8 C Pulse Rate 85 110 H 111 H Respiratory Rate 28 H 30 H 30 H Blood Pressure 101/62 Pulse Oximetry 100 99 03/23/19 16:00 03/23/19 17:25 03/23/19 18:00 Temperature 36.6 C Pulse Rate 146 H 98 132 H Respiratory Rate 23 H 32 H Blood Pressure 136/92 H 101/76 Pulse Oximetry 96 99 100 03/23/19 19:52 03/23/19 19:55 03/23/19 20:00 Temperature 36.8 C Pulse Rate 144 H 135 H 137 H Respiratory Rate 22 H 30 H Blood Pressure 84/52 L Pulse Oximetry 99 99 03/23/19 21:46 03/23/19 22:00 03/23/19 22:11 Temperature Pulse Rate 157 H 149 H 148 H Respiratory Rate 29 H Blood Pressure 108/74 Pulse Oximetry 99 99 03/23/19 23:15 03/24/19 00:00 03/24/19 01:13 Temperature 37.3 C Pulse Rate 158 H 143 H 152 H Respiratory Rate 37 H 36 H Blood Pressure 109/77 Pulse Oximetry 99 03/24/19 01:16 03/24/19 01:29 03/24/19 02:00 Temperature Pulse Rate 153 H 148 H 152 H Respiratory Rate 33 H 31 H Blood Pressure 129/78 Pulse Oximetry 99 97 03/24/19 04:00 03/24/19 05:17 03/24/19 06:00 Temperature 37.6 C Pulse Rate 148 H 148 H 153 H Respiratory Rate 26 H 30 H Blood Pressure 98/60 L 104/69 Pulse Oximetry 97 98 97 03/24/19 06:21 03/24/19 07:46 03/24/19 08:20 Temperature 37.2 C Pulse Rate 154 H 134 H 135 H Respiratory Rate 27 H Blood Pressure 92/58 L Pulse Oximetry 98 99 03/24/19 08:22 03/24/19 09:00 03/24/19 10:00 Temperature Pulse Rate 135 H 136 H 128 H Respiratory Rate 25 H 22 H 23 H Blood Pressure 87/51 L Pulse Oximetry 98 03/24/19 10:37 03/24/19 11:33 Temperature Pulse Rate 130 H 132 H Respiratory Rate Blood Pressure Pulse Oximetry 98 Intake/Output Intake/Output: Intake & Output 03/21/19 03/22/19 03/23/19 03/24/19 23:59 23:59 23:59 23:59 Intake Total 1900 1657.0 2434.9 342 Output Total 975 475 500 650 Balance 925 1182.0 1934.9 -308 Meds/Results Medications: Active Medications Generic Name Dose Route Start Last Admin Trade Name Freq PRN Reason Stop Dose Admin Budesonide/Formoterol Fumarate 2 puff 03/18/19 20:00 03/20/19 08:00 Symbicort 160-4.5 Mcg (*Sp) Inhaler INHALATION Not Given Q12HRT DAGOBERTO Cholestyramine Resin 4 gm 03/19/19 18:00 03/24/19 10:19 Questran Light Packet PO 4 gm BID@1000,
[2019-03-24 12:25] LABS: Blood Urea Nitrogen 55 mg/dL (7-17); Calcium 8.5 mg/dL (8.4-10.2); Carbon Dioxide 19 mmol/L (22-30); Chloride 109 mmol/L (98-107); Estimated CRCL calculation 29 ml/min; Estimated Glomerular Filt Rate 28; Glucose 79 mg/dL (65-105); Potassium 4.9 mmol/L (3.4-5.0); Sodium 142 mmol/L (137-145)
--- NOTE | 2019-03-24 12:33 | PCDIET ---
Discussed TPN with Dr. Bourne. Recommended starting Clinimix at 30mL/hr with 250mL 20% lipids for total of 1011kcal and 36 grams protein. Will monitor labs and fluid status and likely recommend increased rate after 24 hours, if able.
[2019-03-24 13:37] LABS: Basophils Absolute Auto 0.1 K/mm3 (0.0-0.1); Basophils Percent Auto 0.2 % (0.2-1.2); Eosinophils Percent Auto 0.1 % (0-4.4); Hematocrit 26.8 % (37.0-47.0); Hemoglobin 8.3 g/dL (12.0-15.0); Immature Granulocyte Absolute 0.94 K/mm3 (0.00-0.031); Immature Granulocyte Percent A 2.6 % (0-0.5); Lymphocytes Absolute Auto 2.14 K/mm3 (0.9-3.2); Lymphocytes Percent Auto 5.9 % (18.3-44.2); Mean Corpuscular Volume 90.5 fl (80-100); Mean Platelet Volume 10.5 fl (7.4-10.4); Monocytes Absolute Auto 1.9 K/mm3 (0.1-0.6); Monocytes Percent Auto 5.2 % (2.6-8.5); Neutrophils Absolute Auto 31.2 K/mm3 (1.3-6.7); Platelet Count Result 382 k/mm3 (150-375); Red Blood Count 2.96 M/mm3 (4.2-5.4); Red Cell Distribution Width 16.3 % (11.5-14.5); White Blood Count 36.2 K/mm3 (4.5-10.0)
[2019-03-24 13:46] LABS: Alanine Aminotransferase 7 U/L (4-35); Albumin Level 2.4 g/dL (3.5-5.1); Alkaline Phosphatase 138 U/L (38-126); Aspartate Amino Transferase 19 U/L (14-36); Bilirubin,Total 2.5 mg/dL (0.2-1.3); Blood Urea Nitrogen 54 mg/dL (7-17); Calcium 8.5 mg/dL (8.4-10.2); Carbon Dioxide 18 mmol/L (22-30); Chloride 108 mmol/L (98-107); Estimated CRCL calculation 29 ml/min; Estimated Glomerular Filt Rate 28; Glucose 79 mg/dL (65-105); Magnesium 2.1 mg/dL (1.6-2.3); Potassium 4.8 mmol/L (3.4-5.0); Sodium 141 mmol/L (137-145)
[2019-03-24] MEDS: FAT EMULSIONS IV 20% 250 ML 20.8 ML IVPB (14:00)
[2019-03-24 14:11] LABS: Transferrin < 80 mg/dL (206-381)
[2019-03-24 17:50] LABS: Glucose Point of Care 97 (65-105)
--- NOTE | 2019-03-24 18:44 | P.PNNP_ITS ---
Progress Note: A&P Assessment and Plan (1) Hypokalemia: Code(s): E87.6 - Hypokalemia Status: Acute Assessment and Plan: * noted since admission * suspect due to total body store depletion from poor oral intake, diarrhea...e worsened by her hypomagnesemia * urine electrolytes c/w prerenal azotemia * however, given her history of hypertension and metastatic lesions in her adrenal gland, can not discount some type of mineralcorticoid excess syndrome of [place]... - given her current status, will be difficult to evaluate this * for now, would repleted K+ and Mg++ PRN and re-evaluate when she clinically improves for current illness although this may not be necessary given #2 (2) Acute kidney failure, unspecified: Code(s): N17.9 - Acute kidney failure, unspecified Status: Acute Assessment and Plan: * multifactorial etiology: - prerenal factors - hemodynamic instability/shock/cardiac arrest - reduce ejection fraction/cardiomyopathy - contrast exposure * creatinine continues to rise * now with decreasing UOP, mild hyperkalemia, and metabolic acidosis * may need dialytic support if condition does not improve.... (3) Cardiac arrest: Code(s): I46.9 - Cardiac arrest, cause unspecified Status: Acute Assessment and Plan: * precipitated by Torsades * Echo results noted * Cardiology following (4) Acute respiratory failure: Code(s): J96.00 - Acute respiratory failure, unspecified whether with hypoxia or hyperca pnia Status: Acute Assessment and Plan: * secondary to cardiac arrest and pulmonary edema * remains on mechanical ventilation * wean as tolerated (5) Symptomatic anemia: Code(s): D64.9 - Anemia, unspecified Status: Acute Assessment and Plan: * etiology not entirely clear * she is suspectible to this given her metastatic lung cancer * her ALLY may be a contributing component as well * Dr. Jensen following (6) Lung cancer: Qualifiers: Laterality: unspecified laterality Lung location: unspecified part of lung Qualified Code(s): C34.90 - Malignant neoplasm of unspecified part of unspecified bronchus or lung Code(s): C34.90 - Malignant neoplasm of unspecified part of unspecified bronchus or lung Status: Chronic Assessment and Plan: * metastatic as noted by recent imaging studies * not currently on any treatment Will continue to follow. Additional Plan Subjective Date/time seen: 03/24/19 18:44 Patient not making much progress -- creatinine continues to deteriorate with poor urine output along with rising K+ and metabolic acidosis; remains on full ventilator support. Exam Narrative: Exam Narrative: General: WD/WN female in NAD; intubated Heart: normal S1 and S2; no rub Lungs: coarse breath sounds throughout Abdomen: soft, nontender, nondistended, positive bowel sounds Extremities: no cyanosis or clubbing; 1+ edema Skin: warm and dry Objective Data Vital Signs Vital Signs: Vital Signs Temp Pulse Resp BP Pulse Ox 03/24/19 18:39 142 H 03/24/19 18:00 140 H 30 H 104/67 98 03/24/19 16:53 144 H 99 03/24/19 16:00 37.6 C 151 H 3 L 119/82 97 03/24/19 14:32 144 H 30 H 03/24/19 14:31 147 H 99 03/24/19 14:19 143 H 30 H 03/24/19 14:00 150 H 31 H 98/54 L 99 03/24
--- NOTE | 2019-03-24 18:44 | PM.PNNEP ---
Progress Note: A&P Assessment and Plan (1) Hypokalemia: Code(s): E87.6 - Hypokalemia Status: Acute Assessment and Plan: noted since admission suspect due to total body store depletion from poor oral intake, diarrhea...e worsened by her hypomagnesemia urine electrolytes c/w prerenal azotemia however, given her history of hypertension and metastatic lesions in her adrenal gland, can not discount some type of mineralcorticoid excess syndrome of [place]... - given her current status, will be difficult to evaluate this for now, would repleted K+ and Mg++ PRN and re-evaluate when she clinically improves for current illness although this may not be necessary given #2 (2) Acute kidney failure, unspecified: Code(s): N17.9 - Acute kidney failure, unspecified Status: Acute Assessment and Plan: multifactorial etiology: - prerenal factors - hemodynamic instability/shock/cardiac arrest - reduce ejection fraction/cardiomyopathy - contrast exposure creatinine continues to rise now with decreasing UOP, mild hyperkalemia, and metabolic acidosis may need dialytic support if condition does not improve.... (3) Cardiac arrest: Code(s): I46.9 - Cardiac arrest, cause unspecified Status: Acute Assessment and Plan: precipitated by Torsades Echo results noted Cardiology following (4) Acute respiratory failure: Code(s): J96.00 - Acute respiratory failure, unspecified whether with hypoxia or hypercapnia Status: Acute Assessment and Plan: secondary to cardiac arrest and pulmonary edema remains on mechanical ventilation wean as tolerated (5) Symptomatic anemia: Code(s): D64.9 - Anemia, unspecified Status: Acute Assessment and Plan: etiology not entirely clear she is suspectible to this given her metastatic lung cancer her LALY may be a contributing component as well Dr. Jensen following (6) Lung cancer: Qualifiers: Laterality: unspecified laterality Lung location: unspecified part of lung Qualified Code(s): C34.90 - Malignant neoplasm of unspecified part of unspecified bronchus or lung Code(s): C34.90 - Malignant neoplasm of unspecified part of unspecified bronchus or lung Status: Chronic Assessment and Plan: metastatic as noted by recent imaging studies not currently on any treatment Will continue to follow. Additional Plan Subjective Date/time seen: 03/24/19 18:44 Patient not making much progress -- creatinine continues to deteriorate with poor urine output along with rising K+ and metabolic acidosis; remains on full ventilator support. Exam Narrative: Exam Narrative: General: WD/WN female in NAD; intubated Heart: normal S1 and S2; no rub Lungs: coarse breath sounds throughout Abdomen: soft, nontender, nondistended, positive bowel sounds Extremities: no cyanosis or clubbing; 1+ edema Skin: warm and dry Objective Data Vital Signs Vital Signs: Vital Signs Temp Pulse Resp BP Pulse Ox 03/24/19 18:39 142 H 03/24/19 18:00 140 H 30 H 104/67 98 03/24/19 16:53 144 H 99 03/24/19 16:00 37.6 C 151 H 3 L 119/82 97 03/24/19 14:32 144 H 30 H 03/24/19 14:31 147 H 99 03/24/19 14:19 143 H 30 H 03/24/19 14:00 150 H 31 H 98/54 L 99 03/24/19 12:00 36.7 C 137 H 24 H 108/58 L 97 03/24/19 11:33 132 H 03/24/19 10:37 130 H 98 03/24/19 10:00 128 H 23 H 87/51 L 98 03/24/19 09:00 136 H 22 H 03/24/19 08:22 135 H 25 H 03/24/19 08:20 135 H 99 03/24/19 07:46 37.2 C 134 H 27 H 92/58 L 98 03/24/19 06:21 154 H 03/24/19 06:00 153 H 30 H 104/69 97 03/24/19 05:17 148 H 98 03/24/19 04:00 37.6 C 148 H 26 H 98/60 L 97 03/24/19 02:00 152 H 31 H 129/78 97 03/24/19 01:29 148 H 33 H 03/24/19 01:16 153 H 99 03/24/19 01:13 152 H 36 H 03/24/19
--- NOTE | 2019-03-24 18:56 | P.PNIM_ITS ---
Progress Note: A&P Assessment and Plan (1) Symptomatic anemia: Code(s): D64.9 - Anemia, unspecified Status: Acute Assessment and Plan: * likely due to lung ca and tx * 03/20 hgb 7.8 * 03/21 hgb 7.4 * 03/22 hgb 7.0 * 03/23 hgb 6.8, 1 U PRBC ordered * 03/24 hgb 8.3 (2) Arterial hypotension: Qualifiers: Hypotension type: other hypotension type Qualified Code(s): I95.89 - Other hypotension Code(s): I95.9 - Hypotension, unspecified Status: Resolved Assessment and Plan: * anemia, dehydration, sepsis * 03/19 FENA 2.3% c/w prerenal etiology * 03/23 continue attempts at weaning norepinephrine * 03/24 continues on norepinephrine (3) Lung cancer: Qualifiers: Laterality: unspecified laterality Lung location: unspecified part of lung Qualified Code(s): C34.90 - Malignant neoplasm of unspecified part of unspecified bronchus or lung Code(s): C34.90 - Malignant neoplasm of unspecified part of unspecified bronchus or lung Status: Chronic Assessment and Plan: * oncology input appreciated * It is probable that her prognostic curve has passed the inflection point of futility. (4) Leukocytosis: Qualifiers: Leukocytosis type: unspecified Qualified Code(s): D72.829 - Elevated white blood cell count, unspecified Code(s): D72.829 - Elevated white blood cell count, unspecified Status: Acute Assessment and Plan: * possible sepsis due to colitis vs pulmonary source (urine culture negative) * cefepime for latter (5) Thrombocytosis: Code(s): D47.3 - Essential (hemorrhagic) thrombocythemia Status: Acute Assessment and Plan: * due to lung ca, sepsis (6) Hypokalemia: Code(s): E87.6 - Hypokalemia Status: Acute Assessment and Plan: * 2 3.6 after k-rider * 03/21 3.3, supplement * 2.8 4.4, 03/23 5.1, 03/24 4.8 (7) Tachycardia: Code(s): R00.0 - Tachycardia, unspecified Status: Acute Assessment and Plan: * pulseless VT early AM 03/20, code blue * SVT did not respond to adenosine 03/20 AM * Metoprolol maintaining HR 110s-120s (8) Acute kidney injury: Code(s): N17.9 - Acute kidney failure, unspecified Status: Acute Assessment and Plan: * 03/23 creatinine up to 2.1, 03/24 2.2 (9) Cardiac arrest: Code(s): I46.9 - Cardiac arrest, cause unspecified Status: Acute Assessment and Plan: * pulseless VT early AM 03/20, code blue Subjective Date/time seen: 03/24/19 08:45 Interval history: Difficulty with TF overnight. High residuals. Review of Systems Review of Systems: All systems reviewed & are unremarkable except as noted in HPI and below ROS unobtainable: unobtainable due to endotracheal tube, unobtainable due to mental condition and unobtainable due to mental status Exam Narrative: Exam Narrative: HEENT: ET tube and OG tube in place NECK: No JVD CHEST: coarse BS HEART: NL S1/S2, tachycardic ABDOMEN: BS+, soft, nontender, no mass, no bruits EXTREMITIES: No cyanosis, edema, or clubbing NEUROLOGIC: CN intact and symmetric to inspection. MUSCULOSKELETAL: Tone and strength symmetric. PSYCH: Alert. Oriented to person, place, and time. Objective Data Vital Signs Vital Signs: Vital Signs - 24 hr 03/23/19 19:52 03/23/19 19:55 03/23/19 20:00 Temperature 98.3 F Pulse Rate 144 H 135 H 137 H Respi
--- NOTE | 2019-03-24 18:56 | PM.IMPN ---
Progress Note: A&P Assessment and Plan (1) Symptomatic anemia: Code(s): D64.9 - Anemia, unspecified Status: Acute Assessment and Plan: likely due to lung ca and tx 03/20 hgb 7.8 03/21 hgb 7.4 03/22 hgb 7.0 03/23 hgb 6.8, 1 U PRBC ordered 03/24 hgb 8.3 (2) Arterial hypotension: Qualifiers: Hypotension type: other hypotension type Qualified Code(s): I95.89 - Other hypotension Code(s): I95.9 - Hypotension, unspecified Status: Resolved Assessment and Plan: anemia, dehydration, sepsis 03/19 FENA 2.3% c/w prerenal etiology 03/23 continue attempts at weaning norepinephrine 03/24 continues on norepinephrine (3) Lung cancer: Qualifiers: Laterality: unspecified laterality Lung location: unspecified part of lung Qualified Code(s): C34.90 - Malignant neoplasm of unspecified part of unspecified bronchus or lung Code(s): C34.90 - Malignant neoplasm of unspecified part of unspecified bronchus or lung Status: Chronic Assessment and Plan: oncology input appreciated It is probable that her prognostic curve has passed the inflection point of futility. (4) Leukocytosis: Qualifiers: Leukocytosis type: unspecified Qualified Code(s): D72.829 - Elevated white blood cell count, unspecified Code(s): D72.829 - Elevated white blood cell count, unspecified Status: Acute Assessment and Plan: possible sepsis due to colitis vs pulmonary source (urine culture negative) cefepime for latter (5) Thrombocytosis: Code(s): D47.3 - Essential (hemorrhagic) thrombocythemia Status: Acute Assessment and Plan: due to lung ca, sepsis (6) Hypokalemia: Code(s): E87.6 - Hypokalemia Status: Acute Assessment and Plan: 03/20 3.6 after k-rider 03/21 3.3, supplement 2.8 4.4, 03/23 5.1, 03/24 4.8 (7) Tachycardia: Code(s): R00.0 - Tachycardia, unspecified Status: Acute Assessment and Plan: pulseless VT early AM 03/20, code blue SVT did not respond to adenosine 03/20 AM Metoprolol maintaining HR 110s-120s (8) Acute kidney injury: Code(s): N17.9 - Acute kidney failure, unspecified Status: Acute Assessment and Plan: 03/23 creatinine up to 2.1, 03/24 2.2 (9) Cardiac arrest: Code(s): I46.9 - Cardiac arrest, cause unspecified Status: Acute Assessment and Plan: pulseless VT early AM 03/20, code blue Subjective Date/time seen: 03/24/19 08:45 Interval history: Difficulty with TF overnight. High residuals. Review of Systems Review of Systems: All systems reviewed & are unremarkable except as noted in HPI and below ROS unobtainable: unobtainable due to endotracheal tube, unobtainable due to mental condition and unobtainable due to mental status Exam Narrative: Exam Narrative: HEENT: ET tube and OG tube in place NECK: No JVD CHEST: coarse BS HEART: NL S1/S2, tachycardic ABDOMEN: BS+, soft, nontender, no mass, no bruits EXTREMITIES: No cyanosis, edema, or clubbing NEUROLOGIC: CN intact and symmetric to inspection. MUSCULOSKELETAL: Tone and strength symmetric. PSYCH: Alert. Oriented to person, place, and time. Objective Data Vital Signs Vital Signs: Vital Signs - 24 hr 03/23/19 19:52 03/23/19 19:55 03/23/19 20:00 Temperature 98.3 F Pulse Rate 144 H 135 H 137 H Respiratory Rate 22 H 30 H Blood Pressure 84/52 L Pulse Oximetry 99 99 03/23/19 21:46 03/23/19 22:00 03/23/19 22:11 Temperature Pulse Rate 157 H 149 H 148 H Respiratory Rate 29 H Blood Pressure 108/74 Pulse Oximetry 99 99 03/23/19 23:15 03/24/19 00:00 03/24/19 01:13 Temperature 99.2 F Pulse Rate 158 H 143 H 152 H Respiratory Rate 37 H 36 H Blood Pressure 109/77 Pulse Oximetry 99 03/24/19 01:16 03/24/19 01:29 03/24/19 02:00 Temperature Pulse Rate 153 H 148 H 152 H Respiratory Rate 33 H 31 H Blood Pressure 129/78 Pulse Oximetry 9
[2019-03-24] MEDS: PANTOPRAZOLE 40 MG TABLET PO (19:24)
--- NOTE | 2019-03-24 19:41 | PC.NURSE ---
At 1900 the norepinephrine drip was noted to be at 4 mcg/min while patients blood pressure was noted to be 107/65. Norepinephrine titrated down to 3 mcg/min at that time.
[2019-03-24] MEDS: NOREPINEPHRINE 8 MG/D5W 250 ML 8 MG/250 ML BAG 5.6 MG IV CONT (19:44)
--- NOTE | 2019-03-24 20:10 | ECG_ITS ---
Measurements Intervals [place] Rate: 176 P: VA: 0 QRS: 30 QRSD: 141 T: 60 QT: 257 QTc: 440 Interpretive Statements SUPRAVENTRICULAR TACHYCARDIA BORDERLINE ST-T WAVE ABNORMALITY- INF/LAT LEADS ABNORMAL ECG Electronically Signed On 03-25-2019 7:07:34 [employer] by Salvatore Vang D.O.
[2019-03-24] MEDS: MONTELUKAST SODIUM 10 MG TABLET PO (20:28)
--- NOTE | 2019-03-24 21:47 | PCRCNOTE ---
Scanned respiratory medication but did not administer. Pt. HR 177. JEAN Perez said to hold.
[2019-03-24 23:44] LABS: Glucose Point of Care 133 (65-105)
[2019-03-25] VITALS (33 sets, daily range): BP systolic 80–104; BP diastolic 52–67; PULSE 117–143; RESP 23–33; TEMP 36.8–37.9; O2SAT 95–100
[2019-03-25] MEDS: METOCLOPRAMIDE HCL INJ 10 MG/2 ML VIAL IV PUSH ×2 (00:01→05:45)
[2019-03-25] MEDS: METOPROLOL TARTRATE INJ 5 MG/5 ML VIAL IV PUSH ×5 (00:01→21:00)
[2019-03-25] MEDS: IPRATROPIUM BR 0.02% INH SOLN 0.5 MG/2.5 ML VIAL INHALATION ×4 (01:29→20:33)
[2019-03-25] MEDS: FAT EMULSIONS IV 20% 250 ML 20.8 ML IVPB ×2 (02:48→15:57)
[2019-03-25 04:34] LABS: Hematocrit 23.7 % (37.0-47.0); Hemoglobin 7.4 g/dL (12.0-15.0); Mean Corpuscular HGB Conc 31.2 g/dl (32-36); Mean Corpuscular Hemoglobin 28.7 pg (26-34); Mean Corpuscular Volume 91.9 fl (80-100); Mean Platelet Volume 10.6 fl (7.4-10.4); Platelet Count Result 335 k/mm3 (150-375); Red Blood Count 2.58 M/mm3 (4.2-5.4); Red Cell Distribution Width 16.2 % (11.5-14.5)
[2019-03-25 04:40] LABS: Base Excess ABG -5.2 mEq/l (+/-2.0); Carboxyhemoglobin 0.3 % THb (0-2.0); Fractional Inspired Oxygen 30 %; HCO3 ABG 18.6 mEq/l (22.0-26.0); Methemoglobin ABG 0.7 %THb (0-1.5); Oxygen Content ABG 11.5 %vol (16.0-22.0); Oxygen Saturation ABG 97.4 % (95.0-100.0); Oxyhemoglobin 95.2 % THb (90.0-100.0); PCO2 ABG 29.8 mmHg (35.0-45.0); PO2 ABG 93.9 mmHg (80.0-100.0); PO2 FiO2 Ratio Arterial Blood 3.13 %; Reduced Hemoglobin 3.8 %THb (0-5.0); Total Hemoglobin 8.5 g/dL (12.0-18.0); pH ABG 7.413 (7.350-7.450)
[2019-03-25 04:41] LABS: Device VENTILATOR; Modified Allen's Test Pass; Site Drawn LEFT RADIAL
[2019-03-25 04:42] LABS: Arterial Blood Gas PEEP 8 cmH2O; Arterial Blood Gas Vent Mode CMV; Arterial Blood Gas Ventilator rate 16 /MIN
[2019-03-25 04:43] LABS: Arterial Blood Gas Tidal Volume 400 ml
[2019-03-25 04:57] LABS: Blood Urea Nitrogen 60 mg/dL (7-17); Carbon Dioxide 19 mmol/L (22-30); Chloride 108 mmol/L (98-107); Estimated CRCL calculation 27 ml/min; Estimated Glomerular Filt Rate 27; Glucose 151 mg/dL (65-105); Phosphorus 5.7 mg/dL (2.5-4.5); Potassium 4.7 mmol/L (3.4-5.0); Sodium 139 mmol/L (137-145)
[2019-03-25 04:59] LABS: Lactic Acid 1.1 mmol/L (0.7-2.1)
[2019-03-25] MEDS: MIDAZOLAM HCL 50 MG in DEXTROSE 5% 90 ML 12 MG IV CONT ×2 (05:29→15:48)
[2019-03-25] MEDS: SODIUM BICARBONATE 8.4% 150 MEQ in DEXTROSE 5% 1,000 ML 950 ML 50 MEQ IV CONT (06:10)
--- NOTE | 2019-03-25 09:22 | WPDINTPN ---
Progress Note: A&P Assessment and Plan (1) Tachycardia: Code(s): R00.0 - Tachycardia, unspecified Status: Acute Assessment and Plan: Patient with sinus tachycardia since admission, also known history of some sinus tachycardia and SVT in the past. - Patient on metoprolol IV, frequency increased to q.4 hours per Cardiology overnight as patient was significantly tachycardic in the 170s and 180s. (2) Acute respiratory failure: Qualifiers: Respiratory failure complication: unspecified whether with hypoxia or hypercapnia Qualified Code(s): J96.00 - Acute respiratory failure, unspecified whether with hypoxia or hypercapnia Code(s): J96.00 - Acute respiratory failure, unspecified whether with hypoxia or hypercapnia Status: Acute Assessment and Plan: Post cardiac arrest patient was having difficulty breathing, found to have pulmonary edema, requiring intubation on 03/20/2019 - chest x-ray and ABGs reviewed, ventilator adjusted - continue bronchodilators - CT scan of the chest On 03/20/2019 did not show any pulmonary emboli, 1.4 cm nodule in the left lower lung lobe suspicious for primary bronchogenic carcinoma, mediastinal and left supraclavicular lymphadenopathy and bilateral adrenal masses consist with metastatic disease. A liver mass and splenic masses suspicious for metastatic disease. - Patient on fentanyl and Versed infusion with better synchrony on the ventilator. (3) Cardiac arrest: Code(s): I46.9 - Cardiac arrest, cause unspecified Status: Acute Assessment and Plan: patient had cardiac arrest overnight consistent with torsades, went into AFib RVR post resuscitation and then SVT. Patient was cardioverted and given adenosine without success. remains in sinus tachycardia - continue metoprolol, cardiology following the patient - echocardiogram 03/20/2019 shows EF of 30 35%, grade 1 diastolic dysfunction, global hypokinesis of the left ventricle right ventricular function is reduced, moderate pulmonary hypertension with RVSP of 45 mmHg (4) Arterial hypotension: Qualifiers: Hypotension type: other hypotension type Qualified Code(s): I95.89 - Other hypotension Code(s): I95.9 - Hypotension, unspecified Status: Resolved Assessment and Plan: patient has been hypotensive likely related to severe tachycardia, hypovolemia, sedation meds, metoprolol - Patient on Levophed, maintain mean arterial pressure is greater than 65 mmHg - source likely lungs, continue cefepime, - appreciate infectious disease elevation and recommendation (5) Symptomatic anemia: Code(s): D64.9 - Anemia, unspecified Status: Acute Assessment and Plan: Anemia of chronic disease versus bone marrow disease. Patient does have a poor p.o intake but anemia appear to be too severe for anemia of chronic disease .Records from [facility] reviewed . Patient has early recent admission 03/07/2019 and had received multiple blood transfusions for hemoglobin of 4. EGD was also done which was negative. Patient refused colonoscopy though she has been having some diarrhea. - She has received 7 units of packed RBC since admission. - d/w heme, may need bone marrow bx. (6) Lung cancer: Qualifiers: Laterality: unspecified laterality Lung location: unspecified part of lung Qualified Code(s): C34.90 - Malignant neoplasm of unspecified part of unspecified bronchus or lung Code(s): C34.90 - Malignant neoplasm of unspecified part of unspecified bronchus or lung Status: Chronic Assessment and Plan: As per records from [facility] patient has on on non differentiated non small-cell lung cancer diagnose 01/22/2019. - Mets to the adrenal bilaterally which have increased in size, along with spleen and right hepatic lobe as mentioned in the CT abdomen pelvis as under - n
[2019-03-25] MEDS: PANTOPRAZOLE SODIUM IV 40 MG VIAL IV PUSH (10:51)
--- NOTE | 2019-03-25 11:27 | P.PNNP_ITS ---
Progress Note: A&P Assessment and Plan (1) Hypokalemia: Code(s): E87.6 - Hypokalemia Status: Acute Assessment and Plan: * noted since admission * suspect due to total body store depletion from poor oral intake, diarrhea...e worsened by her hypomagnesemia * urine electrolytes c/w prerenal azotemia * however, given her history of hypertension and metastatic lesions in her adrenal gland, can not discount some type of mineralcorticoid excess syndrome of [place]... - given her current status, will be difficult to evaluate this * for now, would repleted K+ and Mg++ PRN and re-evaluate when she clinically improves for current illness although this may not be necessary given #2 (2) Acute kidney failure, unspecified: Code(s): N17.9 - Acute kidney failure, unspecified Status: Acute Assessment and Plan: * multifactorial etiology: - prerenal factors - hemodynamic instability/shock/cardiac arrest - reduce ejection fraction/cardiomyopathy - contrast exposure * creatinine continues to rise * now with decreasing UOP, mild hyperkalemia, and metabolic acidosis * may need dialytic support if condition does not improve.... (3) Cardiac arrest: Code(s): I46.9 - Cardiac arrest, cause unspecified Status: Acute Assessment and Plan: * precipitated by Torsades * Echo results noted * Cardiology following (4) Acute respiratory failure: Qualifiers: Respiratory failure complication: unspecified whether with hypoxia or hypercapnia Qualified Code(s): J96.00 - Acute respiratory failure, unspecified whether with hypoxia or hypercapnia Code(s): J96.00 - Acute respiratory failure, unspecified whether with hypoxia or hypercapnia Status: Acute Assessment and Plan: * secondary to cardiac arrest and pulmonary edema * remains on mechanical ventilation * wean as tolerated (5) Symptomatic anemia: Code(s): D64.9 - Anemia, unspecified Status: Acute Assessment and Plan: * etiology not entirely clear * she is suspectible to this given her metastatic lung cancer * her LALY may be a contributing component as well * Dr. Jensen following (6) Lung cancer: Qualifiers: Laterality: unspecified laterality Lung location: unspecified part of lung Qualified Code(s): C34.90 - Malignant neoplasm of unspecified part of unspecified bronchus or lung Code(s): C34.90 - Malignant neoplasm of unspecified part of unspecified bronchus or lung Status: Chronic Assessment and Plan: * metastatic as noted by recent imaging studies * not currently on any treatment Will continue to follow. Subjective Date/time seen: 03/25/19 11:27 No real significant change since I last saw her -- remains on full ventilator support; issues with tachycardia overnight with adjustment in metoprolol dosing to compensate. Exam Narrative: Exam Narrative: General: WD/WN female in NAD; intubated Heart: normal S1 and S2; no rub Lungs: coarse breath sounds throughout Abdomen: soft, nontender, nondistended, positive bowel sounds Extremities: no cyanosis or clubbing; 1+ edema Skin: warm and dry Objective Data Vital Signs Vital Signs: Vital Signs Temp Pulse Resp BP Pulse Ox 03/25/19 10:51 128 H 03/25/19 10:00 131 H 24 H 81/53 L 99 03/25/19 09:20 117 H 25 H 03/25/19 09:14 127 H 99
--- NOTE | 2019-03-25 11:27 | PM.PNNEP ---
Progress Note: A&P Assessment and Plan (1) Hypokalemia: Code(s): E87.6 - Hypokalemia Status: Acute Assessment and Plan: noted since admission suspect due to total body store depletion from poor oral intake, diarrhea...e worsened by her hypomagnesemia urine electrolytes c/w prerenal azotemia however, given her history of hypertension and metastatic lesions in her adrenal gland, can not discount some type of mineralcorticoid excess syndrome of [place]... - given her current status, will be difficult to evaluate this for now, would repleted K+ and Mg++ PRN and re-evaluate when she clinically improves for current illness although this may not be necessary given #2 (2) Acute kidney failure, unspecified: Code(s): N17.9 - Acute kidney failure, unspecified Status: Acute Assessment and Plan: multifactorial etiology: - prerenal factors - hemodynamic instability/shock/cardiac arrest - reduce ejection fraction/cardiomyopathy - contrast exposure creatinine continues to rise now with decreasing UOP, mild hyperkalemia, and metabolic acidosis may need dialytic support if condition does not improve.... (3) Cardiac arrest: Code(s): I46.9 - Cardiac arrest, cause unspecified Status: Acute Assessment and Plan: precipitated by Torsades Echo results noted Cardiology following (4) Acute respiratory failure: Qualifiers: Respiratory failure complication: unspecified whether with hypoxia or hypercapnia Qualified Code(s): J96.00 - Acute respiratory failure, unspecified whether with hypoxia or hypercapnia Code(s): J96.00 - Acute respiratory failure, unspecified whether with hypoxia or hypercapnia Status: Acute Assessment and Plan: secondary to cardiac arrest and pulmonary edema remains on mechanical ventilation wean as tolerated (5) Symptomatic anemia: Code(s): D64.9 - Anemia, unspecified Status: Acute Assessment and Plan: etiology not entirely clear she is suspectible to this given her metastatic lung cancer her LALY may be a contributing component as well Dr. Jensen following (6) Lung cancer: Qualifiers: Laterality: unspecified laterality Lung location: unspecified part of lung Qualified Code(s): C34.90 - Malignant neoplasm of unspecified part of unspecified bronchus or lung Code(s): C34.90 - Malignant neoplasm of unspecified part of unspecified bronchus or lung Status: Chronic Assessment and Plan: metastatic as noted by recent imaging studies not currently on any treatment Will continue to follow. Subjective Date/time seen: 03/25/19 11:27 No real significant change since I last saw her -- remains on full ventilator support; issues with tachycardia overnight with adjustment in metoprolol dosing to compensate. Exam Narrative: Exam Narrative: General: WD/WN female in NAD; intubated Heart: normal S1 and S2; no rub Lungs: coarse breath sounds throughout Abdomen: soft, nontender, nondistended, positive bowel sounds Extremities: no cyanosis or clubbing; 1+ edema Skin: warm and dry Objective Data Vital Signs Vital Signs: Vital Signs Temp Pulse Resp BP Pulse Ox 03/25/19 10:51 128 H 03/25/19 10:00 131 H 24 H 81/53 L 99 03/25/19 09:20 117 H 25 H 03/25/19 09:14 127 H 99 03/25/19 09:12 129 H 24 H 03/25/19 08:09 36.8 C 125 H 24 H 89/55 L 99 03/25/19 08:07 125 H 03/25/19 06:00 125 H 24 H 80/54 L 99 03/25/19 04:44 140 H 98 03/25/19 04:43 137 H 03/25/19 04:00 37.2 C 138 H 27 H 95/62 L 99 03/25/19 02:00 137 H 26 H 96/64 L 96 03/25/19 01:50 134 H 99 03/25/19 01:39 135 H 28 H 03/25/19 01:29 137 H 26 H 03/25/19 00:01 143 H 03/25/19 00:00 37.3 C 137 H 28 H 100/67 98 03/24/19 23:00 142 H 99 03/24/19 22:00 143 H 31 H 102/60 94 03/24/19 2
--- NOTE | 2019-03-25 11:31 | PCDIET ---
Nutrition Follow-Up Complete: Nutrition Diagnosis: Suboptimal oral intake related to decreased appetite as evidenced by meal refusal and reported weight loss. Nutrition Goal: Tube feeding tolerance. Goal not met. Tube feedings on hold and patient receiving Clinimix (without electrolytes) at 30mL/hr with 250mL 20% lipids daily for total of 1011kcal and 36g protein. Maintaining lower rate at this time due to worsening kidney function and fluid limitations. Last recorded weight is 77.6 kg which is stable. Bowel Motility: +BM today, liquid. Labs Reviewed: Hgb (7.4), Hct (23.7), Glu (151), BUN (60), Cr (2.3) Meds Noted: Cefepime, Vitamin B12, Fentanyl, Folic Acid, Mag-Ox, Questran, Nimbex, Reglan, Versed, MVI with minerals, Levophed, Protonix, Vitamin B1, Sodium Bicarbonate Additional Notes: Buttocks macerated. Discussed possibility of trickle feedings with MD/RN. Reported significant GI output; no order to resume enteral feedings at this time. Nutrition Monitoring and Evaluation: Follow up every Sunday/Sunday. Follow daily in ICU rounds.
--- NOTE | 2019-03-25 13:19 | WPDINFPN2 ---
Progress Note: A&P Assessment and Plan (1) Leukocytosis: Qualifiers: Leukocytosis type: unspecified Qualified Code(s): D72.829 - Elevated white blood cell count, unspecified Code(s): D72.829 - Elevated white blood cell count, unspecified Status: Acute Assessment and Plan: 1. Chronic (2 months if not more) leukocytosis, due to lung cancer 2. Hypotension - HCAP? CXR noted 3. Report of + C diff test,low suspicion for C diff infection at present. The pancolitis seen on CT is also chronic though worse now. 4. NSCLC, metastatic to anterior mediastinum and bilateral adrenals 4. Acute renal insufficiency REC Cefepime #6 / 7 days, continue. A cousin at bedside, briefly updated. Increasingly dire prognosis, no attempts at weaning at present Subjective Date/time seen: 03/25/19 13:19 Interval history: norepi 8 mcg. Sedated Exam Narrative: Exam Narrative: afebrile Const: General: no acute distress Eyes: Sclera: scleral abnormality Neck: Other: r ij line in place, no erythema no drainage Resp: Effort & Inspection: normal respiratory effort Auscultation: clear to auscultation bilaterally Cardio: Rate: tachycardic Rhythm: regular rhythm Heart sounds: no gallops and no murmurs GI: Inspection: non-distended GI Palp: Yes Soft to palpation, No Tenderness to palpation present (GI) and No Guarding due to palpation present (GI) Urinary Catheter: Urinary Catheter: patent and draining and urine clear Objective Data Vital Signs Vital Signs: Vital Signs - 24 hr 03/24/19 14:00 03/24/19 14:19 03/24/19 14:31 Temperature Pulse Rate 150 H 143 H 147 H Respiratory Rate 31 H 30 H Blood Pressure 98/54 L Pulse Oximetry 99 99 03/24/19 14:32 03/24/19 16:00 03/24/19 16:53 Temperature 37.6 C Pulse Rate 144 H 151 H 144 H Respiratory Rate 30 H 3 L Blood Pressure 119/82 Pulse Oximetry 97 99 03/24/19 18:00 03/24/19 18:39 03/24/19 20:00 Temperature 37.3 C Pulse Rate 140 H 142 H 169 H Respiratory Rate 30 H 29 H Blood Pressure 104/67 92/77 L Pulse Oximetry 98 98 03/24/19 20:01 03/24/19 20:59 03/24/19 22:00 Temperature Pulse Rate 173 H 184 H 143 H Respiratory Rate 31 H Blood Pressure 102/60 Pulse Oximetry 99 94 03/24/19 23:00 03/25/19 00:00 03/25/19 00:01 Temperature 37.3 C Pulse Rate 142 H 137 H 143 H Respiratory Rate 28 H Blood Pressure 100/67 Pulse Oximetry 99 98 03/25/19 01:29 03/25/19 01:39 03/25/19 01:50 Temperature Pulse Rate 137 H 135 H 134 H Respiratory Rate 26 H 28 H Blood Pressure Pulse Oximetry 99 03/25/19 02:00 03/25/19 04:00 03/25/19 04:43 Temperature 37.2 C Pulse Rate 137 H 138 H 137 H Respiratory Rate 26 H 27 H Blood Pressure 96/64 L 95/62 L Pulse Oximetry 96 99 03/25/19 04:44 03/25/19 06:00 03/25/19 08:07 Temperature Pulse Rate 140 H 125 H 125 H Respiratory Rate 24 H Blood Pressure 80/54 L Pulse Oximetry 98 99 03/25/19 08:09 03/25/19 09:12 03/25/19 09:14 Temperature 36.8 C Pulse Rate 125 H 129 H 127 H Respiratory Rate 24 H 24 H Blood Pressure 89/55 L Pulse Oximetry 99 99 03/25/19 09:20 03/25/19 10:00 03/25/19 10:51 Temperature Pulse Rate 117 H 131 H 128 H Respiratory Rate 25 H 24 H Blood Pressure 81/53 L Pulse Oximetry 99 03/25/19 11:47 03/25/19 12:00 Temperature 37.6 C Pulse Rate 118 H 118 H Respiratory Rate 23 H Blood Pressure 85/52 L Pulse Oximetry 100 100 Intake/Output Intake/Output: Intake & Output 03/22/19 03/23/19 03/24/19 03/25/19 23:59 23:59 23:59 23:59 Intake Total 1657.0 2434.9 1259.4 1499.7 Output Total 475 500 850 125 Balance 1182.0 1934.9 409.4 1374.7 Meds/Results Medications: Active Medications Generic Name Dose Route Start Last Admin Trade Name Freq PRN Reason Stop Dose Admin Budesonide/Formoterol Fumarate 2 puff 03/18/19 20:00 03/20/19 08:00 Symbicort 160-4.5 Mcg (*Sp) Inhaler INHALATION Not Given Q12H
[2019-03-25 16:19] LABS: Glucose Point of Care 112 (65-105)
--- NOTE | 2019-03-25 21:30 | P.PNIM_ITS ---
Progress Note: A&P Assessment and Plan (1) Symptomatic anemia: Code(s): D64.9 - Anemia, unspecified Status: Acute Assessment and Plan: * likely due to lung ca and tx * 03/20 hgb 7.8 * 03/21 hgb 7.4 * 03/22 hgb 7.0 * 03/23 hgb 6.8, 1 U PRBC ordered * 03/24 hgb 8.3 * 03/25 hgb 7.4 (2) Arterial hypotension: Qualifiers: Hypotension type: other hypotension type Qualified Code(s): I95.89 - Other hypotension Code(s): I95.9 - Hypotension, unspecified Status: Resolved Assessment and Plan: * anemia, dehydration, sepsis * 03/19 FENA 2.3% c/w prerenal etiology * 03/23 continue attempts at weaning norepinephrine * 03/25 continues on norepinephrine (3) Lung cancer: Qualifiers: Laterality: unspecified laterality Lung location: unspecified part of lung Qualified Code(s): C34.90 - Malignant neoplasm of unspecified part of u nspecified bronchus or lung Code(s): C34.90 - Malignant neoplasm of unspecified part of unspecified bronchus or lung Status: Chronic Assessment and Plan: * oncology input appreciated * It is probable that her prognostic curve has passed the inflection point of fu tility. (4) Leukocytosis: Qualifiers: Leukocytosis type: unspecified Qualified Code(s): D72.829 - Elevated white blood cell count, unspecified Code(s): D72.829 - Elevated white blood cell count, unspecified Status: Acute Assessment and Plan: * possible sepsis due to colitis vs pulmonary source (urine culture negative) * cefepime for latter still (5) Thrombocytosis: Code(s): D47.3 - Essential (hemorrhagic) thrombocythemia Status: Acute Assessment and Plan: * due to lung ca, sepsis (6) Hypokalemia: Code(s): E87.6 - Hypokalemia Status: Acute Assessment and Plan: * 2/ 3.6 after k-rider * 03/21 3.3, supplement * 2.8 4.4, 03/23 5.1, 03/24 4.8 * resolved (7) Tachycardia: Code(s): R00.0 - Tachycardia, unspecified Status: Acute Assessment and Plan: * pulseless VT early AM 03/20, code blue * SVT did not respond to adenosine 03/20 AM * Metoprolol maintaining HR 110s-120s * EF only 30 % (8) Acute kidney injury: Code(s): N17.9 - Acute kidney failure, unspecified Status: Acute Assessment and Plan: * 03/23 creatinine up to 2.1, 03/24 2.2, 03/25 2.3 (9) Cardiac arrest: Code(s): I46.9 - Cardiac arrest, cause unspecified Status: Acute Assessment and Plan: * pulseless VT early AM 03/20, code blue Subjective Date/time seen: 03/25/19 21:30 Interval history: Date of visit 03/25. norepi 8 mcg.still with sedation . Prognosis still very poor Exam Narrative: Exam Narrative: BP 100/60 p 102 HEENT: ET tube and OG tube in place NECK: No JVD CHEST: coarse BS, crackles left HEART: NL S1/S2, tachycardic ABDOMEN: BS+, soft, nontender, no mass, no bruits EXTREMITIES: No cyanosis, edema,of left arm and legs NEUROLOGIC: sedated. Objective Data Vital Signs Vital Signs: Vital Signs - 24 hr 03/24/19 22:00 03/24/19 23:00 03/25/19 00:00 Temperature 37.3 C Pulse Rate 143 H 142 H 137 H Respiratory Rate 31 H 28 H Blood Pressure 102/60 100/67 Pulse Oximetry 94 99 98 03/25/19 00:01 03/25/19 01:29 03/25/19 01:39 Temperature Pulse Rate 143 H 137 H 135 H
--- NOTE | 2019-03-25 21:30 | PM.IMPN ---
Progress Note: A&P Assessment and Plan (1) Symptomatic anemia: Code(s): D64.9 - Anemia, unspecified Status: Acute Assessment and Plan: likely due to lung ca and tx 03/20 hgb 7.8 03/21 hgb 7.4 03/22 hgb 7.0 03/23 hgb 6.8, 1 U PRBC ordered 03/24 hgb 8.3 03/25 hgb 7.4 (2) Arterial hypotension: Qualifiers: Hypotension type: other hypotension type Qualified Code(s): I95.89 - Other hypotension Code(s): I95.9 - Hypotension, unspecified Status: Resolved Assessment and Plan: anemia, dehydration, sepsis 03/19 FENA 2.3% c/w prerenal etiology 03/23 continue attempts at weaning norepinephrine 03/25 continues on norepinephrine (3) Lung cancer: Qualifiers: Laterality: unspecified laterality Lung location: unspecified part of lung Qualified Code(s): C34.90 - Malignant neoplasm of unspecified part of unspecified bronchus or lung Code(s): C34.90 - Malignant neoplasm of unspecified part of unspecified bronchus or lung Status: Chronic Assessment and Plan: oncology input appreciated It is probable that her prognostic curve has passed the inflection point of futility. (4) Leukocytosis: Qualifiers: Leukocytosis type: unspecified Qualified Code(s): D72.829 - Elevated white blood cell count, unspecified Code(s): D72.829 - Elevated white blood cell count, unspecified Status: Acute Assessment and Plan: possible sepsis due to colitis vs pulmonary source (urine culture negative) cefepime for latter still (5) Thrombocytosis: Code(s): D47.3 - Essential (hemorrhagic) thrombocythemia Status: Acute Assessment and Plan: due to lung ca, sepsis (6) Hypokalemia: Code(s): E87.6 - Hypokalemia Status: Acute Assessment and Plan: 03/20 3.6 after k-rider 03/21 3.3, supplement 2.8 4.4, 03/23 5.1, 03/24 4.8 resolved (7) Tachycardia: Code(s): R00.0 - Tachycardia, unspecified Status: Acute Assessment and Plan: pulseless VT early AM 03/20, code blue SVT did not respond to adenosine 03/20 AM Metoprolol maintaining HR 110s-120s EF only 30 % (8) Acute kidney injury: Code(s): N17.9 - Acute kidney failure, unspecified Status: Acute Assessment and Plan: 03/23 creatinine up to 2.1, 03/24 2.2, 03/25 2.3 (9) Cardiac arrest: Code(s): I46.9 - Cardiac arrest, cause unspecified Status: Acute Assessment and Plan: pulseless VT early AM 03/20, code blue Subjective Date/time seen: 03/25/19 21:30 Interval history: Date of visit 03/25. norepi 8 mcg.still with sedation . Prognosis still very poor Exam Narrative: Exam Narrative: BP 100/60 p 102 HEENT: ET tube and OG tube in place NECK: No JVD CHEST: coarse BS, crackles left HEART: NL S1/S2, tachycardic ABDOMEN: BS+, soft, nontender, no mass, no bruits EXTREMITIES: No cyanosis, edema,of left arm and legs NEUROLOGIC: sedated. Objective Data Vital Signs Vital Signs: Vital Signs - 24 hr 03/24/19 22:00 03/24/19 23:00 03/25/19 00:00 Temperature 37.3 C Pulse Rate 143 H 142 H 137 H Respiratory Rate 31 H 28 H Blood Pressure 102/60 100/67 Pulse Oximetry 94 99 98 03/25/19 00:01 03/25/19 01:29 03/25/19 01:39 Temperature Pulse Rate 143 H 137 H 135 H Respiratory Rate 26 H 28 H Blood Pressure Pulse Oximetry 03/25/19 01:50 03/25/19 02:00 03/25/19 04:00 Temperature 37.2 C Pulse Rate 134 H 137 H 138 H Respiratory Rate 26 H 27 H Blood Pressure 96/64 L 95/62 L Pulse Oximetry 99 96 99 03/25/19 04:43 03/25/19 04:44 03/25/19 06:00 Temperature Pulse Rate 137 H 140 H 125 H Respiratory Rate 24 H Blood Pressure 80/54 L Pulse Oximetry 98 99 03/25/19 08:07 03/25/19 08:09 03/25/19 09:12 Temperature 36.8 C Pulse Rate 125 H 125 H 129 H Respiratory Rate 24 H 24 H Blood Pressure 89/55 L Pulse Oximetry 99 03/25/19 09:14 03/25/19 09:20
[2019-03-25] MEDS: NOREPINEPHRINE 8 MG/D5W 250 ML 8 MG/250 ML BAG 15 MG IV CONT (22:14)
[2019-03-26] VITALS (37 sets, daily range): BP systolic 76–116; BP diastolic 50–92; PULSE 100–148; RESP 23–31; TEMP 36.9–37.9; O2SAT 10–100
[2019-03-26] MEDS: MIDAZOLAM HCL 50 MG in DEXTROSE 5% 90 ML 12 MG IV CONT (00:08)
[2019-03-26] MEDS: METOPROLOL TARTRATE INJ 5 MG/5 ML VIAL IV PUSH ×7 (00:52→20:38)
[2019-03-26 01:08] LABS: Glucose Point of Care 123 (65-105)
[2019-03-26] MEDS: IPRATROPIUM BR 0.02% INH SOLN 0.5 MG/2.5 ML VIAL INHALATION ×4 (02:19→19:59)
[2019-03-26] MEDS: SODIUM BICARBONATE 8.4% 150 MEQ in DEXTROSE 5% 1,000 ML 950 ML 50 MEQ IV CONT (03:07)
[2019-03-26 05:36] LABS: Alveolar/Arterial O2 Gradient 78.5 mmHg; Base Excess ABG -5.1 mEq/l (+/-2.0); Fractional Inspired Oxygen 30 %; Oxygen Content ABG 12.3 %vol (16.0-22.0); Oxygen Saturation ABG 97.5 % (95.0-100.0); Oxyhemoglobin 96.1 % THb (90.0-100.0); PCO2 ABG 31.8 mmHg (35.0-45.0); PO2 FiO2 Ratio Arterial Blood 3.27 %; pH ABG 7.395 (7.350-7.450)
[2019-03-26 05:36] LABS: Hematocrit 24.4 % (37.0-47.0); Hemoglobin 7.8 g/dL (12.0-15.0); Mean Corpuscular Hemoglobin 28.6 pg (26-34); Mean Corpuscular Volume 89.4 fl (80-100); Mean Platelet Volume 10.7 fl (7.4-10.4); Platelet Count Result 349 k/mm3 (150-375); Red Blood Count 2.73 M/mm3 (4.2-5.4); Red Cell Distribution Width 16.3 % (11.5-14.5); White Blood Count 38.5 K/mm3 (4.5-10.0)
[2019-03-26 05:37] LABS: Arterial Blood Gas PEEP 8 cmH2O; Arterial Blood Gas Tidal Volume 400 ml; Arterial Blood Gas Vent Mode CMV; Arterial Blood Gas Ventilator rate 14 /MIN; Device VENTILATOR; Modified Allen's Test Pass; Site Drawn LEFT RADIAL
[2019-03-26 05:47] LABS: Triglycerides 154 mg/dL (<150)
[2019-03-26 06:29] LABS: Blood Urea Nitrogen 72 mg/dL (7-17); Calcium 8.1 mg/dL (8.4-10.2); Carbon Dioxide 21 mmol/L (22-30); Chloride 101 mmol/L (98-107); Estimated CRCL calculation 26 ml/min; Estimated Glomerular Filt Rate 25; Glucose 130 mg/dL (65-105); Phosphorus 6.1 mg/dL (2.5-4.5); Potassium 4.6 mmol/L (3.4-5.0); Sodium 136 mmol/L (137-145)
--- NOTE | 2019-03-26 07:00 | P.PNINT_ITS ---
Progress Note: A&P Assessment and Plan (1) Acute respiratory failure: Qualifiers: Respiratory failure complication: unspecified whether with hypoxia or hypercapnia Qualified Code(s): J96.00 - Acute respiratory failure, unspecified whether with hypoxia or hypercapnia Code(s): J96.00 - Acute respiratory failure, unspecified whether with hypoxia or hypercapnia Status: Acute Assessment and Plan: Post cardiac arrest patient was having difficulty breathing, found to have pulmonary edema, requiring intubation on 03/20/2019 - chest x-ray, vent settings and ABGs reviewed - Continue bronchodilators - CT scan of the chest On 03/20/2019 did not show any pulmonary emboli, 1.4 cm nodule in the left lower lung lobe suspicious for primary bronchogenic carcinoma, mediastinal and left supraclavicular lymphadenopathy and bilateral adrenal masses consist with metastatic disease. A liver mass and splenic masses suspicious for metastatic disease. - Patient on fentanyl and Versed infusion with better synchrony on the ventilator. - Sedation holiday today (2) Cardiac arrest: Code(s): I46.9 - Cardiac arrest, cause unspecified Status: Acute Assessment and Plan: patient had cardiac arrest overnight consistent with torsades, went into AFib RVR post resuscitation and then SVT. Patient was cardioverted and given adenosi ne without success. remains in sinus tachycardia - continue metoprolol, cardiology following the patient - echocardiogram 03/20/2019 shows EF of 30 35%, grade 1 diastolic dysfunction, global hypokinesis of the left ventricle right ventricular function is reduced, moderate pulmonary hypertension with RVSP of 45 mmHg (3) Arterial hypotension: Qualifiers: Hypotension type: other hypotension type Qualified Code(s): I95.89 - Other hypotension Code(s): I95.9 - Hypotension, unspecified Status: Resolved Assessment and Plan: patient has been hypotensive likely related to severe tachycardia, hypovolemia, sedation meds, metoprolol - Patient on Levophed, maintain mean arterial pressure is greater than 65 mmHg - source likely lungs, continue cefepime, - appreciate infectious disease elevation and recommendation (4) Acute kidney injury: Code(s): N17.9 - Acute kidney failure, unspecified Status: Acute Assessment and Plan: patient with low urine output and worsening creatinine and hyperkalemia, will treat hyperkalemia with D50 and insulin and bicarb. - Overall pt is voluem overloaded but wont tolerate diuresis as in shock and LALY - Discontinue bicarb infusion. May add per tube if needed but ph adequate at this time - likely related to septic shock, hypovolemia, contrast induced nephropathy - discussed with Nephrology, continue to monitor urine output, renal function electrolytes - potassium within normal limits (5) Tachycardia: Code(s): R00.0 - Tachycardia, unspecified Status: Acute Assessment and Plan: Patient with sinus tachycardia since admission, also known history of some sinus tachycardia and SVT in the past. - Improved as pt is on metoprolol IV per Cardiology (6) Symptomatic anemia: Code(s): D64.9 - Anemia, unspecified Status: Acute Assessment and Plan: Anemia of chronic disease versus bone marrow disease. Patient does have a poor p.o intake but anemia appear to be too severe for anemia of chronic disease .Records from [facility] reviewed . Patient has early recent admission 03/07/2019 and had received multiple blood transfusions for hemoglobi
[2019-03-26] MEDS: PANTOPRAZOLE SODIUM IV 40 MG VIAL IV PUSH (07:42)
[2019-03-26] MEDS: MIDAZOLAM HCL 50 MG in DEXTROSE 5% 90 ML 6 MG IV CONT (08:40)
--- NOTE | 2019-03-26 11:40 | PCDIET ---
ICU Rounding Note: Patient NPO on Clinimix at 30mL/hr with 250mL 20% lipids daily. Plan for Dobhoff placement and initiation of trickle feedings. Recommend Nepro at 10mL/hr at this time. Verbal order from Dr. Fonseca obtained. Last recorded weight is 79.0kg which is increased. I/O positive. Decreased urine output noted. Bowel Motility: +BM today. Labs Reviewed: Hgb (7.8), Hct (24.4), Glu (130), BUN (72), Cr (2.5), Na (136), PO4 (6.1), TG (154) Meds Noted: Fentanyl, Folic Acid, Questran, Nimbex, Vitamin B12, Max-Ox, Versed, MVI, Levophed, Protonix, Sodium Bicarbonate, Thiamine Additional Notes: No documented skin breakdown. Following daily in ICU rounds. Assessing/reassessing every Sunday/Sunday.
--- NOTE | 2019-03-26 12:02 | PM.PNCARD ---
Progress Note: A&P Additional Plan Very unfortunate 53-year-old lady with metastatic non-small cell lung cancer. Patient has picture of slowly worsening multiorgan system failure and has a grim, terminal prognosis. Sinus tachycardia is functional and related to these comorbidities as well as significant anemia. No further cardiac follow-up this would seem to be necessary or appropriate and I do not believe the patient will benefit from ongoing follow-up by our practice as such we will sign off today. Please call me if cardiac assistance is needed. Time Spent With Patient Time with patient: less than 15 minutes Subjective Date/time seen: Date of service: 03/26/19 12:02 Interval history: Follow-up visit for sinus tachycardia Unfortunate 53-year-old lady with metastatic lung cancer and now demonstrating evidence of multi system dysfunction Intubated sedated in the ICU Exam Const: Other: Sedated intubated in ICU Neck: Neck: supple and no JVD Thyroid: thyroid normal Resp: Auscultation: clear to auscultation bilaterally Cardio: Rate: tachycardic Rhythm: regular rhythm GI: Auscultation: normal bowel sounds Extrem: General: normal to inspection Objective Data Vital Signs Vital Signs: Vital Signs - 24 hr 03/25/19 14:00 03/25/19 14:37 03/25/19 14:38 Temperature Pulse Rate 119 H 119 H 119 H Respiratory Rate 24 H 26 H Blood Pressure 95/57 L Pulse Oximetry 99 99 03/25/19 14:50 03/25/19 15:37 03/25/19 16:00 Temperature 37.9 C H Pulse Rate 117 H 133 H 123 H Respiratory Rate 26 H 23 H Blood Pressure 97/59 L Pulse Oximetry 97 03/25/19 16:44 03/25/19 18:00 03/25/19 20:00 Temperature 37.1 C Pulse Rate 121 H 124 H 126 H Respiratory Rate 25 H 25 H Blood Pressure 100/59 L 99/61 L Pulse Oximetry 99 99 98 03/25/19 20:38 03/25/19 20:48 03/25/19 21:00 Temperature Pulse Rate 129 H 125 H 139 H Respiratory Rate 33 H 31 H Blood Pressure Pulse Oximetry 99 03/25/19 22:00 03/25/19 23:37 03/26/19 00:00 Temperature 37.0 C Pulse Rate 128 H 128 H 128 H Respiratory Rate 26 H 24 H Blood Pressure 104/59 L 105/61 Pulse Oximetry 95 98 98 03/26/19 00:52 03/26/19 02:00 03/26/19 02:20 Temperature Pulse Rate 126 H 128 H 126 H Respiratory Rate 25 H 24 H Blood Pressure 109/63 Pulse Oximetry 99 03/26/19 02:23 03/26/19 02:30 03/26/19 04:00 Temperature 37.3 C Pulse Rate 126 H 121 H 130 H Respiratory Rate 24 H 24 H Blood Pressure 112/68 Pulse Oximetry 92 98 03/26/19 05:16 03/26/19 06:00 03/26/19 07:38 Temperature 36.9 C Pulse Rate 131 H 125 H 132 H Respiratory Rate 23 H 24 H Blood Pressure 109/61 109/69 Pulse Oximetry 97 99 98 03/26/19 07:41 03/26/19 07:52 03/26/19 08:00 Temperature Pulse Rate 132 H 123 H 124 H Respiratory Rate 25 H Blood Pressure Pulse Oximetry 98 03/26/19 08:43 03/26/19 08:49 03/26/19 10:00 Temperature Pulse Rate 131 H 126 H 143 H Respiratory Rate 26 H 27 H Blood Pressure 103/66 Pulse Oximetry 99 97 03/26/19 11:45 03/26/19 12:00 Temperature 37.2 C Pulse Rate 147 H Respiratory Rate 27 H Blood Pressure 84/56 L Pulse Oximetry 97 96 Intake/Output Intake/Output: Intake & Output 03/23/19 03/24/19 03/25/19 03/26/19 23:59 23:59 23:59 23:59 Intake Total 2434.9 1259.4 3658.0 2300 Output Total 500 850 125 Balance 1934.9 409.4 3533.0 2300 Meds/Results Medications: Active Medications Generic Name Dose Route Start Last Admin Trade Name Freq PRN Reason Stop Dose Admin Budesonide/Formoterol Fumarate 2 puff 03/18/19 20:00 03/20/19 08:00 Symbicort 160-4.5 Mcg (*Sp) Inhaler INHALATION Not Given Q12HRT [facility] Cholestyramine Resin 4 gm 03/19/19 18:00 03/24/19 18:43 Questran Light Packet PO 4 gm BID@1000,1800 DAGOBERTO Administration Cyanocobalamin 1,000 mcg 03/19/19 09:00 03/25/19 10:53 Vitamin B-12 Tab PO 04/18/19 09:01 Not Given DAILY [facility] Folic Acid 1 mg
[2019-03-26 12:06] LABS: Glucose Point of Care 95 (65-105)
--- NOTE | 2019-03-26 12:24 | WPDINFPN2 ---
Progress Note: A&P Assessment and Plan (1) Leukocytosis: Qualifiers: Leukocytosis type: unspecified Qualified Code(s): D72.829 - Elevated white blood cell count, unspecified Code(s): D72.829 - Elevated white blood cell count, unspecified Status: Acute Assessment and Plan: 1. Chronic (2 months if not more) leukocytosis, due to lung cancer 2. Hypotension - HCAP? 3. Report of + C diff test,low suspicion for C diff infection at present. The pancolitis seen on CT is also chronic though worse now. 4. NSCLC, metastatic to anterior mediastinum and bilateral adrenals 4. Acute renal insufficiency REC Cefepime #7, stop. An aunt is at bedside, discussed above with her, including that her acute infection is resolved but that the patient is at high risk for future infection due to her cancer. Increasingly dire prognosis. Nothing else to add, sign off. Subjective Date/time seen: 03/26/19 12:24 Interval history: new dobhoff, CT noted, norepi 2 mcg Exam Narrative: Exam Narrative: afebrile Const: General: no acute distress Eyes: General: appearance normal, both eyes and all related structures Resp: Other: soft upper airway noise, otherwise clear Cardio: Rate: tachycardic Rhythm: regular rhythm Heart sounds: no murmurs GI: Inspection: non-distended GI Palp: Yes Soft to palpation, No Tenderness to palpation present (GI) and No Guarding due to palpation present (GI) Urinary Catheter: Urinary Catheter: patent and draining and urine clear Objective Data Vital Signs Vital Signs: Vital Signs - 24 hr 03/25/19 14:00 03/25/19 14:37 03/25/19 14:38 Temperature Pulse Rate 119 H 119 H 119 H Respiratory Rate 24 H 26 H Blood Pressure 95/57 L Pulse Oximetry 99 99 03/25/19 14:50 03/25/19 15:37 03/25/19 16:00 Temperature 37.9 C H Pulse Rate 117 H 133 H 123 H Respiratory Rate 26 H 23 H Blood Pressure 97/59 L Pulse Oximetry 97 03/25/19 16:44 03/25/19 18:00 03/25/19 20:00 Temperature 37.1 C Pulse Rate 121 H 124 H 126 H Respiratory Rate 25 H 25 H Blood Pressure 100/59 L 99/61 L Pulse Oximetry 99 99 98 03/25/19 20:38 03/25/19 20:48 03/25/19 21:00 Temperature Pulse Rate 129 H 125 H 139 H Respiratory Rate 33 H 31 H Blood Pressure Pulse Oximetry 99 03/25/19 22:00 03/25/19 23:37 03/26/19 00:00 Temperature 37.0 C Pulse Rate 128 H 128 H 128 H Respiratory Rate 26 H 24 H Blood Pressure 104/59 L 105/61 Pulse Oximetry 95 98 98 03/26/19 00:52 03/26/19 02:00 03/26/19 02:20 Temperature Pulse Rate 126 H 128 H 126 H Respiratory Rate 25 H 24 H Blood Pressure 109/63 Pulse Oximetry 99 03/26/19 02:23 03/26/19 02:30 03/26/19 04:00 Temperature 37.3 C Pulse Rate 126 H 121 H 130 H Respiratory Rate 24 H 24 H Blood Pressure 112/68 Pulse Oximetry 92 98 03/26/19 05:16 03/26/19 06:00 03/26/19 07:38 Temperature 36.9 C Pulse Rate 131 H 125 H 132 H Respiratory Rate 23 H 24 H Blood Pressure 109/61 109/69 Pulse Oximetry 97 99 98 03/26/19 07:41 03/26/19 07:52 03/26/19 08:00 Temperature Pulse Rate 132 H 123 H 124 H Respiratory Rate 25 H Blood Pressure Pulse Oximetry 98 03/26/19 08:43 03/26/19 08:49 03/26/19 10:00 Temperature Pulse Rate 131 H 126 H 143 H Respiratory Rate 26 H 27 H Blood Pressure 103/66 Pulse Oximetry 99 97 03/26/19 11:45 03/26/19 12:00 03/26/19 12:02 Temperature 37.2 C Pulse Rate 147 H 148 H Respiratory Rate 27 H Blood Pressure 84/56 L Pulse Oximetry 97 96 Intake/Output Intake/Output: Intake & Output 03/23/19 03/24/19 03/25/19 03/26/19 23:59 23:59 23:59 23:59 Intake Total 2434.9 1259.4 3658.0 2300 Output Total 500 850 125 Balance 1934.9 409.4 3533.0 2300 Meds/Results Medications: Active Medications Generic Name Dose Route Start Last Admin Trade Name Freq PRN Reason Stop Dose Admin Budesonide/Formoterol Fumarate 2 puff 03/18/19 20:00 03/20/19 08:00 Sy
--- NOTE | 2019-03-26 16:25 | PM.PNNEP ---
Progress Note: A&P Assessment and Plan (1) Hypokalemia: Code(s): E87.6 - Hypokalemia Status: Acute Assessment and Plan: noted since admission suspect due to total body store depletion from poor oral intake, diarrhea...e worsened by her hypomagnesemia urine electrolytes c/w prerenal azotemia however, given her history of hypertension and metastatic lesions in her adrenal gland, can not discount some type of mineralcorticoid excess syndrome of [place]... - given her current status, will be difficult to evaluate this for now, would repleted K+ and Mg++ PRN and re-evaluate when she clinically improves for current illness although this may not be necessary given #2 (2) Acute kidney failure, unspecified: Code(s): N17.9 - Acute kidney failure, unspecified Status: Acute Assessment and Plan: multifactorial etiology: - prerenal factors - hemodynamic instability/shock/cardiac arrest - reduce ejection fraction/cardiomyopathy - contrast exposure creatinine continues to rise now with decreasing UOP, mild hyperkalemia, and metabolic acidosis may need dialytic support if condition does not improve but this is unlikely to change her prognosis (3) Cardiac arrest: Code(s): I46.9 - Cardiac arrest, cause unspecified Status: Acute Assessment and Plan: precipitated by Torsades Echo results noted Cardiology following (4) Acute respiratory failure: Qualifiers: Respiratory failure complication: unspecified whether with hypoxia or hypercapnia Qualified Code(s): J96.00 - Acute respiratory failure, unspecified whether with hypoxia or hypercapnia Code(s): J96.00 - Acute respiratory failure, unspecified whether with hypoxia or hypercapnia Status: Acute Assessment and Plan: secondary to cardiac arrest and pulmonary edema remains on mechanical ventilation wean as tolerated (5) Symptomatic anemia: Code(s): D64.9 - Anemia, unspecified Status: Acute Assessment and Plan: etiology not entirely clear she is suspectible to this given her metastatic lung cancer her LALY may be a contributing component as well Dr. Jensen following (6) Lung cancer: Qualifiers: Laterality: unspecified laterality Lung location: unspecified part of lung Qualified Code(s): C34.90 - Malignant neoplasm of unspecified part of unspecified bronchus or lung Code(s): C34.90 - Malignant neoplasm of unspecified part of unspecified bronchus or lung Status: Chronic Assessment and Plan: metastatic as noted by recent imaging studies not currently on any treatment Will continue to follow. Subjective Date/time seen: 03/26/19 18:25 No change noted at the time of my visit; remains unresponsive on full support (pressors, ventilator,...etc); kidney function continues to deteriorate with declining urine output Exam Narrative: Exam Narrative: General: WD/WN female in NAD; intubated Heart: normal S1 and S2; no rub Lungs: coarse breath sounds throughout Abdomen: soft, nontender, nondistended, positive bowel sounds Extremities: no cyanosis or clubbing; 1+ edema Skin: warm and intact Objective Data Vital Signs Vital Signs: Vital Signs - 24 hr 03/26/19 19:59 03/26/19 20:00 03/26/19 20:19 Temperature 37.9 C H Pulse Rate 105 H 124 H 126 H Respiratory Rate 31 H 28 H 28 H Blood Pressure 103/57 L Pulse Oximetry 99 94 03/26/19 22:00 03/26/19 22:47 03/27/19 00:00 Temperature 38.5 C H Pulse Rate 125 H 147 H 104 H Respiratory Rate 26 H 27 H Blood Pressure 116/92 H 94/56 L Pulse Oximetry 97 98 100 03/27/19 01:07 03/27/19 01:51 03/27/19 02:00 Temperature Pulse Rate 100 96 95 Respiratory Rate 26 H 25 H Blood Pressure 100/61 Pulse Oximetry 100 100 03/27/19 04:00 03/27/19 05:12 03/27/19 06:00 Temperature 37.0 C 37.0 C Pulse Rate 90 93 95 Respiratory Rate 27 H 27 H
--- NOTE | 2019-03-26 16:25 | P.PNNP_ITS ---
Progress Note: A&P Assessment and Plan (1) Hypokalemia: Code(s): E87.6 - Hypokalemia Status: Acute Assessment and Plan: * noted since admission * suspect due to total body store depletion from poor oral intake, diarrhea...e worsened by her hypomagnesemia * urine electrolytes c/w prerenal azotemia * however, given her history of hypertension and metastatic lesions in her adrenal gland, can not discount some type of mineralcorticoid excess syndrome of [place]... - given her current status, will be difficult to evaluate this * for now, would repleted K+ and Mg++ PRN and re-evaluate when she clinically improves for current illness although this may not be necessary given #2 (2) Acute kidney failure, unspecified: Code(s): N17.9 - Acute kidney failure, unspecified Status: Acute Assessment and Plan: * multifactorial etiology: - prerenal factors - hemodynamic instability/shock/cardiac arrest - reduce ejection fraction/cardiomyopathy - contrast exposure * creatinine continues to rise * now with decreasing UOP, mild hyperkalemia, and metabolic acidosis * may need dialytic support if condition does not improve but this is unlikely to change her prognosis (3) Cardiac arrest: Code(s): I46.9 - Cardiac arrest, cause unspecified Status: Acute Assessment and Plan: * precipitated by [place]orsades * Echo results noted * Cardiology following (4) Acute respiratory failure: Qualifiers: Respiratory failure complication: unspecified whether with hypoxia or hypercapnia Qualified Code(s): J96.00 - Acute respiratory failure, unspecified whether with hypoxia or hypercapnia Code(s): J96.00 - Acute respiratory failure, unspecified whether with hypoxia or hypercapnia Status: Acute Assessment and Plan: * secondary to cardiac arrest and pulmonary edema * remains on mechanical ventilation * wean as tolerated (5) Symptomatic anemia: Code(s): D64.9 - Anemia, unspecified Status: Acute Assessment and Plan: * etiology not entirely clear * she is suspectible to this given her metastatic lung cancer * her LALY may be a contributing component as well * Dr. Jensen following (6) Lung cancer: Qualifiers: Laterality: unspecified laterality Lung location: unspecified part of lung Qualified Code(s): C34.90 - Malignant neoplasm of unspecified part of unspecified bronchus or lung Code(s): C34.90 - Malignant neoplasm of unspecified part of unspecified bronchus or lung Status: Chronic Assessment and Plan: * metastatic as noted by recent imaging studies * not currently on any treatment Will continue to follow. Subjective Date/time seen: 03/26/19 18:25 No change noted at the time of my visit; remains unresponsive on full support (pressors, ventilator,...etc); kidney function continues to deteriorate with declining urine output Exam Narrative: Exam Narrative: General: WD/WN female in NAD; intubated Heart: normal S1 and S2; no rub Lungs: coarse breath sounds throughout Abdomen: soft, nontender, nondistended, positive bowel sounds Extremities: no cyanosis or clubbing; 1+ edema Skin: warm and intact Objective Data Vital Signs Vital Signs: Vital Signs - 24 hr 03/26/19 19:59 03/26/19 20:00 03/26/19 20:19 Temperature 37.9 C H Pulse Rate 105 H 124 H 126 H Respiratory Rate 31 H 28 H 28 H
--- NOTE | 2019-03-26 16:46 | P.PNIM_ITS ---
Progress Note: A&P Assessment and Plan (1) Symptomatic anemia: Code(s): D64.9 - Anemia, unspecified Status: Acute Assessment and Plan: * likely due to lung ca and tx * 03/20 hgb 7.8 * 03/21 hgb 7.4 * 03/22 hgb 7.0 * 03/23 hgb 6.8, 1 U PRBC ordered * 03/24 hgb 8.3 * 03/25 hgb 7.4 * 03/26 hgb 7.8 (2) Arterial hypotension: Qualifiers: Hypotension type: other hypotension type Qualified Code(s): I95.89 - Other hypotension Code(s): I95.9 - Hypotension, unspecified Status: Resolved Assessment and Plan: * anemia, dehydration, sepsis * 03/19 FENA 2.3% c/w prerenal etiology * 03/23 continue attempts at weaning norepinephrine * 03/25 continues on norepinephrine low dose (3) Lung cancer: Qualifiers: Laterality: unspecified laterality Lung location: unspecified part of lung Qualified Code(s): C34.90 - Malignant neoplasm of unspecified part of unspecified bronchus or lung Code(s): C34.90 - Malignant neoplasm of unspecified part of unspecified bronchus or lung Status: Chronic Assessment and Plan: * oncology input appreciated * It is probable that her prognostic curve has passed the inflection point of futility. (4) Leukocytosis: Qualifiers: Leukocytosis type: unspecified Qualified Code(s): D72.829 - Elevated white blood cell count, unspecified Code(s): D72.829 - Elevated white blood cell count, unspecified Status: Acute Assessment and Plan: * possible sepsis due to colitis vs pulmonary source (urine culture negative) * cefepime for latter still and finished 7 day course today (5) Thrombocytosis: Code(s): D47.3 - Essential (hemorrhagic) thrombocythemia Status: Acute Assessment and Plan: * due to lung ca, sepsis (6) Hypokalemia: Code(s): E87.6 - Hypokalemia Status: Acute Assessment and Plan: * 2 3.6 after k-rider * 03/21 3.3, supplement * 2.8 4.4, 03/23 5.1, 03/24 4.8 * resolved (7) Tachycardia: Code(s): R00.0 - Tachycardia, unspecified Status: Acute Assessment and Plan: * pulseless VT early AM 03/20, code blue * SVT did not respond to adenosine 03/20 AM * Metoprolol maintaining HR 110s-120s * EF only 30 % (8) Acute kidney injury: Code(s): N17.9 - Acute kidney failure, unspecified Status: Acute Assessment and Plan: * 03/23 creatinine up to 2.1, 03/24 2.2, 03/25 2.3 03/26 2.5 (9) Cardiac arrest: Code(s): I46.9 - Cardiac arrest, cause unspecified Status: Acute Assessment and Plan: * pulseless VT early AM 03/20, code blue Subjective Date/time seen: 03/26/19 16:46 Interval history: Date of visit 03/25. norepi 2 mcg.still with sedation . Prognosis still very poor with multiorgan failure and metastatic non small cell ca Exam Narrative: Exam Narrative: BP 100/56 p 130 HEENT: ET tube and OG tube in place NECK: No JVD CHEST: coarse BS, still crackles left HEART: NL S1/S2, tachycardic ABDOMEN: BS+, soft, nontender, no mass, no bruits EXTREMITIES: No cyanosis, edema,of left arm and legs NEUROLOGIC: sedated. Objective Data Vital Signs Vital Signs: Vital Signs - 24 hr 03/25/19 18:00 03/25/19 20:00 03/25/19 20:38 Temperature 37.1 C Pulse Rate 124 H 126 H 129 H Respiratory Rate 25 H 25 H 33 H Blood Pressure 100/59 L 99/61 L Pulse Oximetry 99 98 99
--- NOTE | 2019-03-26 16:46 | PM.IMPN ---
Progress Note: A&P Assessment and Plan (1) Symptomatic anemia: Code(s): D64.9 - Anemia, unspecified Status: Acute Assessment and Plan: likely due to lung ca and tx 03/20 hgb 7.8 03/21 hgb 7.4 03/22 hgb 7.0 03/23 hgb 6.8, 1 U PRBC ordered 03/24 hgb 8.3 03/25 hgb 7.4 03/26 hgb 7.8 (2) Arterial hypotension: Qualifiers: Hypotension type: other hypotension type Qualified Code(s): I95.89 - Other hypotension Code(s): I95.9 - Hypotension, unspecified Status: Resolved Assessment and Plan: anemia, dehydration, sepsis 03/19 FENA 2.3% c/w prerenal etiology 03/23 continue attempts at weaning norepinephrine 03/25 continues on norepinephrine low dose (3) Lung cancer: Qualifiers: Laterality: unspecified laterality Lung location: unspecified part of lung Qualified Code(s): C34.90 - Malignant neoplasm of unspecified part of unspecified bronchus or lung Code(s): C34.90 - Malignant neoplasm of unspecified part of unspecified bronchus or lung Status: Chronic Assessment and Plan: oncology input appreciated It is probable that her prognostic curve has passed the inflection point of futility. (4) Leukocytosis: Qualifiers: Leukocytosis type: unspecified Qualified Code(s): D72.829 - Elevated white blood cell count, unspecified Code(s): D72.829 - Elevated white blood cell count, unspecified Status: Acute Assessment and Plan: possible sepsis due to colitis vs pulmonary source (urine culture negative) cefepime for latter still and finished 7 day course today (5) Thrombocytosis: Code(s): D47.3 - Essential (hemorrhagic) thrombocythemia Status: Acute Assessment and Plan: due to lung ca, sepsis (6) Hypokalemia: Code(s): E87.6 - Hypokalemia Status: Acute Assessment and Plan: 03/20 3.6 after k-rider 03/21 3.3, supplement 2.8 4.4, 03/23 5.1, 03/24 4.8 resolved (7) Tachycardia: Code(s): R00.0 - Tachycardia, unspecified Status: Acute Assessment and Plan: pulseless VT early AM 03/20, code blue SVT did not respond to adenosine 03/20 AM Metoprolol maintaining HR 110s-120s EF only 30 % (8) Acute kidney injury: Code(s): N17.9 - Acute kidney failure, unspecified Status: Acute Assessment and Plan: 03/23 creatinine up to 2.1, 03/24 2.2, 03/25 2.3 03/26 2.5 (9) Cardiac arrest: Code(s): I46.9 - Cardiac arrest, cause unspecified Status: Acute Assessment and Plan: pulseless VT early AM 03/20, code blue Subjective Date/time seen: 03/26/19 16:46 Interval history: Date of visit 03/25. norepi 2 mcg.still with sedation . Prognosis still very poor with multiorgan failure and metastatic non small cell ca Exam Narrative: Exam Narrative: BP 100/56 p 130 HEENT: ET tube and OG tube in place NECK: No JVD CHEST: coarse BS, still crackles left HEART: NL S1/S2, tachycardic ABDOMEN: BS+, soft, nontender, no mass, no bruits EXTREMITIES: No cyanosis, edema,of left arm and legs NEUROLOGIC: sedated. Objective Data Vital Signs Vital Signs: Vital Signs - 24 hr 03/25/19 18:00 03/25/19 20:00 03/25/19 20:38 Temperature 37.1 C Pulse Rate 124 H 126 H 129 H Respiratory Rate 25 H 25 H 33 H Blood Pressure 100/59 L 99/61 L Pulse Oximetry 99 98 99 03/25/19 20:48 03/25/19 21:00 03/25/19 22:00 Temperature Pulse Rate 125 H 139 H 128 H Respiratory Rate 31 H 26 H Blood Pressure 104/59 L Pulse Oximetry 95 03/25/19 23:37 03/26/19 00:00 03/26/19 00:52 Temperature 37.0 C Pulse Rate 128 H 128 H 126 H Respiratory Rate 24 H Blood Pressure 105/61 Pulse Oximetry 98 98 03/26/19 02:00 03/26/19 02:20 03/26/19 02:23 Temperature Pulse Rate 128 H 126 H 126 H Respiratory Rate 25 H 24 H Blood Pressure 109/63 Pulse Oximetry 99 92 03/26/19 02:30 03/26/19 04:00 03/26/19 05:16 Temperature 37.3 C Pulse Rate 12
[2019-03-26] MEDS: DEXTROSE 50% 25 GM/50 ML SYRINGE IV PUSH (17:39)
[2019-03-26 17:40] LABS: Glucose Point of Care 70 (65-105)
[2019-03-26 18:05] LABS: Glucose Point of Care 118 (65-105)
--- NOTE | 2019-03-26 19:00 | WPDONCPN ---
Progress Note: A/P - Additional Plan Metastatic lung cancer. Patient is not a candidate for chemo therapy. I have discussed this with patient and today in detail and informed her about poor prognosis of metastatic non-small cell lung cancer. She will discuss this with the patient family and make decision regarding continuation. Normocytic anemia. Likely secondary to metastatic lung cancer. Continue transfusion on as needed basis. Hemoglobin stable. Leukocytosis. His again secondary to underlying malignancy. Discussed this case with Dr. Dasilva. - Time Spent With Patient Total time spent is greater than 50% in coordination of care (as documented) at patient's floor/unit and/or counseling patient: 15 - 25 minutes Subjective Interval history: Normocytic anemia Lung cancer Review of Systems - Review of Systems Patient remains sedated and intubated. - Neurologic Reports system reviewed and no additional complaints, except as documented, Denies abnormal gait, Denies behavioral changes Exam Vital signs: Sarah Jefferson. Assessment of coma and impaired consciousness. A practical scale. Lancet 1974; 2:81-4. Narrative: Patient remains sedated and intubated. Lungs clear to auscultation bilaterally Cardiovascular regular rate rhythm no murmurs Abdomen soft nontender distended bowel sounds are decreased Extremities bilateral mild edema PN: Objective Data - Labs CBC & Chem 7: 03/26/19 05:22 03/26/19 05:22 Labs: Laboratory Results - last 24 hr 03/26/19 03/26/19 03/26/19 01:07 05:22 05:22 WBC RBC Hgb Hct MCV MCH MCHC RDW Plt Count MPV Puncture Site ABG pH ABG pCO2 ABG pO2 ABG PO2/FiO2 Ratio ABG HCO3 ABG O2 Saturation ABG O2 Content ABG Base Excess A-a Gradient Oxyhemoglobin Total Hemoglobin O2 Delivery Device O2 Liters/Min Minute Volume Vent Rate Vent Mode FiO2 Tidal Volume PEEP Peak Inspir Pressure Pressure Support Sodium 136 L Potassium 4.6 Chloride 101 Carbon Dioxide 21 L BUN 72 H D Creatinine 2.50 H Estim Creat Clear Calc 26 Estimated GFR 25 L Glucose 130 H POC Capillary Glucose 123 H Calcium 8.1 L Phosphorus 6.1 H Triglycerides 154 H 03/26/19 03/26/19 03/26/19 05:22 05:30 11:59 WBC 38.5 H RBC 2.73 L Hgb 7.8 L Hct 24.4 L MCV 89.4 MCH 28.6 MCHC 32.0 RDW 16.3 H Plt Count 349 MPV 10.7 H Puncture Site Left radial ABG pH 7.395 ABG pCO2 31.8 L ABG pO2 98.0 ABG PO2/FiO2 Ratio 3.27 ABG HCO3 19.0 L ABG O2 Saturation 97.5 ABG O2 Content 12.3 L ABG Base Excess -5.1 A-a Gradient 78.5 Oxyhemoglobin 96.1 Total Hemoglobin 9.0 L O2 Delivery Device Ventilator O2 Liters/Min Not Reportable Minute Volume Not Reportable Vent Rate 14 Vent Mode Cmv FiO2 30 Tidal Volume 400 PEEP 8 Peak Inspir Pressure Not Reportable Pressure Support Not Reportable Sodium Potassium Chloride Carbon Dioxide BUN Creatinine Estim Creat Clear Calc Estimated GFR Glucose POC Capillary Glucose 95 Calcium Phosphorus Triglycerides 03/26/19 03/26/19 17:28 18:03 WBC RBC Hgb Hct MCV MCH MCHC RDW Plt Count MPV Puncture Site ABG pH ABG pCO2 ABG pO2 ABG PO2/FiO2 Ratio ABG HCO3 ABG O2 Saturation ABG O2 Content ABG Base Excess A-a Gradient Oxyhemoglobin Total Hemoglobin O2 Delivery Device O2 Liters/Min Minute Volume Vent Rate Vent Mode FiO2 Tidal Volume PEEP Peak Inspir Pressure Pressure Support Sodium Potassium Chloride Carbon Dioxide BUN Creatinine Estim Creat Clear Calc Estimated GFR Glucose POC Capillary Glucose 70 118 H Calcium Phosphorus Triglycerides
[2019-03-26] MEDS: ACETAMINOPHEN ELIXIR 325 MG/10.15 ML UDC 650 MG FEED TUBE (23:18)
[2019-03-26] MEDS: NOREPINEPHRINE 8 MG/D5W 250 ML 8 MG/250 ML BAG 13.1 MG IV CONT (23:51)
[2019-03-27] VITALS (37 sets, daily range): BP systolic 83–125; BP diastolic 48–76; PULSE 90–130; RESP 23–27; TEMP 37–38.5; O2SAT 97–100
[2019-03-27] MEDS: METOPROLOL TARTRATE INJ 5 MG/5 ML VIAL IV PUSH ×5 (01:07→20:35)
[2019-03-27] MEDS: IPRATROPIUM BR 0.02% INH SOLN 0.5 MG/2.5 ML VIAL INHALATION ×4 (01:51→21:31)
[2019-03-27 02:33] LABS: Glucose Point of Care 87 (65-105)
[2019-03-27 05:06] LABS: Alveolar/Arterial O2 Gradient 72.5 mmHg; Base Excess ABG -5.7 mEq/l (+/-2.0); Fractional Inspired Oxygen 30 %; HCO3 ABG 18.5 mEq/l (22.0-26.0); Methemoglobin ABG 0.5 %THb (0-1.5); Oxygen Content ABG 11.8 %vol (16.0-22.0); Oxygen Saturation ABG 97.8 % (95.0-100.0); Oxyhemoglobin 96.7 % THb (90.0-100.0); PCO2 ABG 31.3 mmHg (35.0-45.0); PO2 ABG 104.6 mmHg (80.0-100.0); PO2 FiO2 Ratio Arterial Blood 3.49 %; Reduced Hemoglobin 2.8 %THb (0-5.0); Total Hemoglobin 8.5 g/dL (12.0-18.0)
[2019-03-27 05:07] LABS: Device VENTILATOR; Modified Allen's Test Unable to perform; Site Drawn RIGHT RADIAL
[2019-03-27 05:08] LABS: Arterial Blood Gas PEEP 8 cmH2O; Arterial Blood Gas Tidal Volume 400 ml; Arterial Blood Gas Vent Mode CMV; Arterial Blood Gas Ventilator rate 14 /MIN
[2019-03-27 05:22] LABS: Basophils Absolute Auto 0.1 K/mm3 (0.0-0.1); Basophils Percent Auto 0.3 % (0.2-1.2); Eosinophils Percent Auto 0.1 % (0-4.4); Hematocrit 22.9 % (37.0-47.0); Hemoglobin 7.1 g/dL (12.0-15.0); Immature Granulocyte Absolute 1.18 K/mm3 (0.00-0.031); Immature Granulocyte Percent A 3.5 % (0-0.5); Lymphocytes Absolute Auto 2.08 K/mm3 (0.9-3.2); Lymphocytes Percent Auto 6.1 % (18.3-44.2); Mean Corpuscular Hemoglobin 28.4 pg (26-34); Mean Corpuscular Volume 91.6 fl (80-100); Monocytes Absolute Auto 1.6 K/mm3 (0.1-0.6); Monocytes Percent Auto 4.6 % (2.6-8.5); Neutrophils Absolute Auto 29.1 K/mm3 (1.3-6.7); Neutrophils Percent Auto 85.4 % (45.5-73.1); Platelet Count Result 352 k/mm3 (150-375); Red Cell Distribution Width 16.1 % (11.5-14.5); White Blood Count 34.1 K/mm3 (4.5-10.0)
[2019-03-27 05:51] LABS: Triglycerides 131 mg/dL (<150)
[2019-03-27 05:57] LABS: Alanine Aminotransferase 8 U/L (4-35); Albumin Level 2.2 g/dL (3.5-5.1); Alkaline Phosphatase 118 U/L (38-126); Aspartate Amino Transferase 23 U/L (14-36); Bilirubin,Total 2.2 mg/dL (0.2-1.3); Blood Urea Nitrogen 87 mg/dL (7-17); Calcium 8.1 mg/dL (8.4-10.2); Carbon Dioxide 20 mmol/L (22-30); Chloride 101 mmol/L (98-107); Estimated CRCL calculation 21 ml/min; Estimated Glomerular Filt Rate 19; Glucose 92 mg/dL (65-105); Sodium 135 mmol/L (137-145)
--- NOTE | 2019-03-27 07:13 | PC.NURSE ---
At 0650 Pt noted to have HR at 85 on monitor. Rate quickly dropped to 79, 74, and 69. Dr. Bourne here and called to room. Precedex put on hold. Pt bagged per Dr. Bourne's order by Satish Charles RN for low tidal volumes. Sats remained in the 90's. RT at bedside and vent changes made per Dr. Bourne. After 3 minutes Sats 98-100% and HR > 90. Precedex left on hold. Aunt at bedside during this incident.
--- NOTE | 2019-03-27 07:27 | WPDINTPN ---
Progress Note: A&P Assessment and Plan (1) Acute respiratory failure: Qualifiers: Respiratory failure complication: unspecified whether with hypoxia or hypercapnia Qualified Code(s): J96.00 - Acute respiratory failure, unspecified whether with hypoxia or hypercapnia Code(s): J96.00 - Acute respiratory failure, unspecified whether with hypoxia or hypercapnia Status: Acute Assessment and Plan: Post cardiac arrest patient was having difficulty breathing, found to have pulmonary edema, requiring intubation on 03/20/2019 - chest x-ray, vent settings and ABGs reviewed - Continue bronchodilators - CT scan of the chest On 03/20/2019 did not show any pulmonary emboli, 1.4 cm nodule in the left lower lung lobe suspicious for primary bronchogenic carcinoma, mediastinal and left supraclavicular lymphadenopathy and bilateral adrenal masses consist with metastatic disease. A liver mass and splenic masses suspicious for metastatic disease. - Patient on fentanyl and Versed infusion with better synchrony on the ventilator. - Sedation holiday today (2) Cardiac arrest: Code(s): I46.9 - Cardiac arrest, cause unspecified Status: Acute Assessment and Plan: patient had cardiac arrest overnight consistent with torsades, went into AFib RVR post resuscitation and then SVT. Patient was cardioverted and given adenosine without success. remains in sinus tachycardia - continue metoprolol, cardiology following the patient - echocardiogram 03/20/2019 shows EF of 30 35%, grade 1 diastolic dysfunction, global hypokinesis of the left ventricle right ventricular function is reduced, moderate pulmonary hypertension with RVSP of 45 mmHg (3) Arterial hypotension: Qualifiers: Hypotension type: other hypotension type Qualified Code(s): I95.89 - Other hypotension Code(s): I95.9 - Hypotension, unspecified Status: Resolved Assessment and Plan: patient has been hypotensive likely related to severe tachycardia, hypovolemia, sedation meds, metoprolol - Patient on Levophed, maintain mean arterial pressure is greater than 65 mmHg - source likely lungs, continue cefepime, - appreciate infectious disease elevation and recommendation (4) Acute kidney injury: Code(s): N17.9 - Acute kidney failure, unspecified Status: Acute Assessment and Plan: patient with low urine output and worsening creatinine and hyperkalemia, will treat hyperkalemia with D50 and insulin and bicarb. - Overall pt is voluem overloaded but wont tolerate diuresis as in shock and LALY - Discontinue bicarb infusion. May add per tube if needed but ph adequate at this time - likely related to septic shock, hypovolemia, contrast induced nephropathy - discussed with Nephrology, continue to monitor urine output, renal function electrolytes - potassium within normal limits (5) Tachycardia: Code(s): R00.0 - Tachycardia, unspecified Status: Acute Assessment and Plan: Patient with sinus tachycardia since admission, also known history of some sinus tachycardia and SVT in the past. - Improved as pt is on metoprolol IV per Cardiology (6) Symptomatic anemia: Code(s): D64.9 - Anemia, unspecified Status: Acute Assessment and Plan: Anemia of chronic disease versus bone marrow disease. Patient does have a poor p.o intake but anemia appear to be too severe for anemia of chronic disease .Records [facility] reviewed . Patient has early recent admission 03/07/2019 and had received multiple blood transfusions for hemoglobin of 4. EGD was also done which was negative. Patient refused colonoscopy though she has been having some diarrhea. - She has received 7 units of packed RBC since admission. - d/w heme, may need bone marrow bx. (7) Lung cancer: Qualifiers: Laterality: unspecified laterality Lung location: unspecified pa
[2019-03-27] MEDS: PANTOPRAZOLE SODIUM IV 40 MG VIAL IV PUSH (07:36)
[2019-03-27] MEDS: PROPOFOL IV EMULSION 100 ML 2.4 MG IV CONT (10:47)
[2019-03-27] MEDS: SCOPOLAMINE 1.5 MG PATCH TRANSDERM (10:49)
--- NOTE | 2019-03-27 10:58 | PCDIET ---
ICU Rounding Note: Pt current nutrition is Nepro at 10 mL/hour trickle feeds. Nutrition recommendation: Continue with current trickle feeds. Last recorded weight is 79 kg. Bowel Motility: BM 03/24 Labs Reviewed:PO4 7, GFr 19, Cr 3.1, BUN 87, Na 135 Meds Noted:Vitamin B12, thiamine, folic acid, propofol at 4.7 ml/hour, protonix, mag-ox Additional Notes: Pt tolerating trickle feeds, propofol at 4.7 ml/hour providing 124 kcals / 24 hours. Likely to withdrawal support tomorrow, will continue to monitor closely for needs. Following daily in ICU rounds. Assessing/reassessing Sunday/Sunday.
[2019-03-27] MEDS: ACETAMINOPHEN ELIXIR 325 MG/10.15 ML UDC 650 MG FEED TUBE (11:41)
[2019-03-27 11:54] LABS: Glucose Point of Care 84 (65-105)
[2019-03-27] MEDS: NOREPINEPHRINE 8 MG/D5W 250 ML 8 MG/250 ML BAG 20.6 MG IV CONT (14:12)
[2019-03-27] MEDS: PROPOFOL IV EMULSION 100 ML 19 MG IV CONT (14:13)
--- NOTE | 2019-03-27 17:08 | PM.IMPN ---
Progress Note: A&P Assessment and Plan (1) Symptomatic anemia: Code(s): D64.9 - Anemia, unspecified Status: Acute Assessment and Plan: likely due to lung ca and tx 03/20 hgb 7.8 03/21 hgb 7.4 03/22 hgb 7.0 03/23 hgb 6.8, 1 U PRBC ordered 03/24 hgb 8.3 03/25 hgb 7.4 03/26 hgb 7.8 03/27 7.1 (2) Arterial hypotension: Qualifiers: Hypotension type: other hypotension type Qualified Code(s): I95.89 - Other hypotension Code(s): I95.9 - Hypotension, unspecified Status: Resolved Assessment and Plan: anemia, dehydration, sepsis 03/19 FENA 2.3% c/w prerenal etiology 03/23 continue attempts at weaning norepinephrine 03/27 continues on norepinephrine low dose (3) Lung cancer: Qualifiers: Laterality: unspecified laterality Lung location: unspecified part of lung Qualified Code(s): C34.90 - Malignant neoplasm of unspecified part of unspecified bronchus or lung Code(s): C34.90 - Malignant neoplasm of unspecified part of unspecified bronchus or lung Status: Chronic Assessment and Plan: oncology input appreciated It is probable that her prognostic curve has passed the inflection point of futility. (4) Leukocytosis: Qualifiers: Leukocytosis type: unspecified Qualified Code(s): D72.829 - Elevated white blood cell count, unspecified Code(s): D72.829 - Elevated white blood cell count, unspecified Status: Acute Assessment and Plan: possible sepsis due to colitis vs pulmonary source (urine culture negative) cefepime for latter still and finished 7 day course 03/26 (5) Thrombocytosis: Code(s): D47.3 - Essential (hemorrhagic) thrombocythemia Status: Acute Assessment and Plan: due to lung ca, sepsis (6) Hypokalemia: Code(s): E87.6 - Hypokalemia Status: Acute Assessment and Plan: 03/20 3.6 after k-rider 03/21 3.3, supplement 2.8 4.4, 03/23 5.1, 03/24 4.8 resolved (7) Tachycardia: Code(s): R00.0 - Tachycardia, unspecified Status: Acute Assessment and Plan: pulseless VT early AM 03/20, code blue SVT did not respond to adenosine 03/20 AM Metoprolol maintaining HR 110s-120s EF only 30 % (8) Acute kidney injury: Code(s): N17.9 - Acute kidney failure, unspecified Status: Acute Assessment and Plan: 03/23 creatinine up to 2.1, 03/24 2.2, 03/25 2.3 03/26 2.5, 03/27 3.1 (9) Cardiac arrest: Code(s): I46.9 - Cardiac arrest, cause unspecified Status: Acute Assessment and Plan: pulseless VT early AM 03/20, code blue Subjective Date/time seen: 03/27/19 17:08 Interval history: Date of visit 03/27. norepi .still with sedation . Prognosis still very poor with multiorgan failure and metastatic non small cell ca Exam Narrative: Exam Narrative: BP 86/70 p 130 Peep 8 FIO2 30% still HEENT: ET tube and OG tube in place NECK: No JVD CHEST: coarse BS, still crackles left HEART: NL S1/S2, tachycardic ABDOMEN: BS+, soft, nontender, no mass, no bruits EXTREMITIES: No cyanosis, edema,of left arm and legs NEUROLOGIC: sedated. Objective Data Vital Signs Vital Signs: Vital Signs - 24 hr 03/26/19 17:55 03/26/19 18:00 03/26/19 19:59 Temperature Pulse Rate 100 100 105 H Respiratory Rate 31 H 31 H Blood Pressure 94/56 L Pulse Oximetry 99 99 03/26/19 20:00 03/26/19 20:19 03/26/19 22:00 Temperature 37.9 C H Pulse Rate 124 H 126 H 125 H Respiratory Rate 28 H 28 H 26 H Blood Pressure 103/57 L 116/92 H Pulse Oximetry 94 97 03/26/19 22:47 03/27/19 00:00 03/27/19 01:07 Temperature 38.5 C H Pulse Rate 147 H 104 H 100 Respiratory Rate 27 H Blood Pressure 94/56 L Pulse Oximetry 98 100 03/27/19 01:51 03/27/19 02:00 03/27/19 04:00 Temperature 37.0 C Pulse Rate 96 95 90 Respiratory Rate 26 H 25 H 27 H Blood Pressure 100/61 105/61 Pulse Oximetry 100 100 99 03/27/19 05:12 03/27/19 06:00
--- NOTE | 2019-03-27 17:08 | P.PNIM_ITS ---
Progress Note: A&P Assessment and Plan (1) Symptomatic anemia: Code(s): D64.9 - Anemia, unspecified Status: Acute Assessment and Plan: * likely due to lung ca and tx * 03/20 hgb 7.8 * 03/21 hgb 7.4 * 03/22 hgb 7.0 * 03/23 hgb 6.8, 1 U PRBC ordered * 03/24 hgb 8.3 * 03/25 hgb 7.4 * 03/26 hgb 7.8 * 03/27 7.1 (2) Arterial hypotension: Qualifiers: Hypotension type: other hypotension type Qualified Code(s): I95.89 - Other hypotension Code(s): I95.9 - Hypotension, unspecified Status: Resolved Assessment and Plan: * anemia, dehydration, sepsis * 03/19 FENA 2.3% c/w prerenal etiology * 03/23 continue attempts at weaning norepinephrine * 03/27 continues on norepinephrine low dose (3) Lung cancer: Qualifiers: Laterality: unspecified laterality Lung location: unspecified part of lung Qualified Code(s): C34.90 - Malignant neoplasm of unspecified part of unspecified bronchus or lung Code(s): C34.90 - Malignant neoplasm of unspecified part of unspecified bronchus or lung Status: Chronic Assessment and Plan: * oncology input appreciated * It is probable that her prognostic curve has passed the inflection point of futility. (4) Leukocytosis: Qualifiers: Leukocytosis type: unspecified Qualified Code(s): D72.829 - Elevated white blood cell count, unspecified Code(s): D72.829 - Elevated white blood cell count, unspecified Status: Acute Assessment and Plan: * possible sepsis due to colitis vs pulmonary source (urine culture negative) * cefepime for latter still and finished 7 day course 03/26 (5) Thrombocytosis: Code(s): D47.3 - Essential (hemorrhagic) thrombocythemia Status: Acute Assessment and Plan: * due to lung ca, sepsis (6) Hypokalemia: Code(s): E87.6 - Hypokalemia Status: Acute Assessment and Plan: * 03/20 3.6 after k-rider * 03/21 3.3, supplement * 2.8 4.4, 03/23 5.1, 03/24 4.8 * resolved (7) Tachycardia: Code(s): R00.0 - Tachycardia, unspecified Status: Acute Assessment and Plan: * pulseless VT early AM 03/20, code blue * SVT did not respond to adenosine 03/20 AM * Metoprolol maintaining HR 110s-120s * EF only 30 % (8) Acute kidney injury: Code(s): N17.9 - Acute kidney failure, unspecified Status: Acute Assessment and Plan: * 03/23 creatinine up to 2.1, 03/24 2.2, 03/25 2.3 03/26 2.5, 03/27 3.1 (9) Cardiac arrest: Code(s): I46.9 - Cardiac arrest, cause unspecified Status: Acute Assessment and Plan: * pulseless VT early AM 03/20, code blue Subjective Date/time seen: 03/27/19 17:08 Interval history: Date of visit 03/27. norepi .still with sedation . Prognosis still very poor with multiorgan failure and metastatic non small cell ca Exam Narrative: Exam Narrative: BP 86/70 p 130 Peep 8 FIO2 30% still HEENT: ET tube and OG tube in place NECK: No JVD CHEST: coarse BS, still crackles left HEART: NL S1/S2, tachycardic ABDOMEN: BS+, soft, nontender, no mass, no bruits EXTREMITIES: No cyanosis, edema,of left arm and legs NEUROLOGIC: sedated. Objective Data Vital Signs Vital Signs: Vital Signs - 24 hr 03/26/19 17:55 03/26/19 18:00 03/26/19 19:59 Temperature Pulse Rate 100 100 105 H Respiratory Rate 31 H 31 H Blood Pressure 94/56 L Pulse Oximetry 99
[2019-03-27 17:15] LABS: Glucose Point of Care 104 (65-105)
--- NOTE | 2019-03-27 18:22 | P.PNNP_ITS ---
Progress Note: A&P Assessment and Plan (1) Hypokalemia: Code(s): E87.6 - Hypokalemia Status: Acute Assessment and Plan: * noted since admission * suspect due to total body store depletion from poor oral intake, diarrhea...e worsened by her hypomagnesemia * urine electrolytes c/w prerenal azotemia * however, given her history of hypertension and metastatic lesions in her adrenal gland, can not discount some type of mineralcorticoid excess syndrome of [place]... - given her current status, will be difficult to evaluate this * for now, would repleted K+ and Mg++ PRN and re-evaluate when she clinically improves for current illness although this may not be necessary given #2 (2) Acute kidney failure, unspecified: Code(s): N17.9 - Acute kidney failure, unspecified Status: Acute Assessment and Plan: * multifactorial etiology: - prerenal factors - hemodynamic instability/shock/cardiac arrest - reduce ejection fraction/cardiomyopathy - contrast exposure * creatinine continues to rise * now with decreasing UOP, mild hyperkalemia, and metabolic acidosis * may need dialytic support if condition does not improve but this is unlikely to change her prognosis (3) Cardiac arrest: Code(s): I46.9 - Cardiac arrest, cause unspecified Status: Acute Assessment and Plan: * precipitated by Torsades * Echo results noted * Cardiology following (4) Acute respiratory failure: Qualifiers: Respiratory failure complication: unspecified whether with hypoxia or hypercapnia Qualified Code(s): J96.00 - Acute respiratory failure, unspecified whether with hypoxia or hypercapnia Code(s): J96.00 - Acute respiratory failure, unspecified whether with hypoxia or hypercapnia Status: Acute Assessment and Plan: * secondary to cardiac arrest and pulmonary edema * remains on mechanical ventilation * wean as tolerated (5) Symptomatic anemia: Code(s): D64.9 - Anemia, unspecified Status: Acute Assessment and Plan: * etiology not entirely clear * she is suspectible to this given her metastatic lung cancer * her LALY may be a contributing component as well * Dr. Jensen following (6) Lung cancer: Qualifiers: Laterality: unspecified laterality Lung location: unspecified part of lung Qualified Code(s): C34.90 - Malignant neoplasm of unspecified part of unspecified bronchus or lung Code(s): C34.90 - Malignant neoplasm of unspecified part of unspecified bronchus or lung Status: Chronic Assessment and Plan: * metastatic as noted by recent imaging studies * not currently on any treatment Will continue to follow. Subjective Date/time seen: 03/27/19 18:22 No new issues noted -- remains on mechanical ventilation and pressor support; prognosis grim from review of multiple physician notes; renal function continues to deteriorate. Exam Narrative: Exam Narrative: General: WD/WN female in NAD; intubated Heart: normal S1 and S2; no rub Lungs: coarse breath sounds throughout Abdomen: soft, nontender, nondistended, positive bowel sounds Extremities: no cyanosis or clubbing; 1+ edema Skin: warm and dry Objective Data Vital Signs Vital Signs: Vital Signs Temp Pulse Resp BP Pulse Ox 03/27/19 18:00 110 H 24 H 106/59 L 99 03/27/19 16:59 108 H 99 03/27/19 16:19 112 H 0
--- NOTE | 2019-03-27 18:22 | PM.PNNEP ---
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 - given her current status, will be difficult to evaluate this for now, would repleted K+ and Mg++ PRN and re-evaluate when she clinically improves for current illness although this may not be necessary given #2 (2) Acute kidney failure, unspecified: Code(s): N17.9 - Acute kidney failure, unspecified Status: Acute Assessment and Plan: multifactorial etiology: - prerenal factors - hemodynamic instability/shock/cardiac arrest - reduce ejection fraction/cardiomyopathy - contrast exposure creatinine continues to rise now with decreasing UOP, mild hyperkalemia, and metabolic acidosis may need dialytic support if condition does not improve but this is unlikely to change her prognosis (3) Cardiac arrest: Code(s): I46.9 - Cardiac arrest, cause unspecified Status: Acute Assessment and Plan: precipitated by Torsades Echo results noted Cardiology following (4) Acute respiratory failure: Qualifiers: Respiratory failure complication: unspecified whether with hypoxia or hypercapnia Qualified Code(s): J96.00 - Acute respiratory failure, unspecified whether with hypoxia or hypercapnia Code(s): J96.00 - Acute respiratory failure, unspecified whether with hypoxia or hypercapnia Status: Acute Assessment and Plan: secondary to cardiac arrest and pulmonary edema remains on mechanical ventilation wean as tolerated (5) Symptomatic anemia: Code(s): D64.9 - Anemia, unspecified Status: Acute Assessment and Plan: etiology not entirely clear she is suspectible to this given her metastatic lung cancer her LALY may be a contributing component as well Dr. Jensen following (6) Lung cancer: Qualifiers: Laterality: unspecified laterality Lung location: unspecified part of lung Qualified Code(s): C34.90 - Malignant neoplasm of unspecified part of unspecified bronchus or lung Code(s): C34.90 - Malignant neoplasm of unspecified part of unspecified bronchus or lung Status: Chronic Assessment and Plan: metastatic as noted by recent imaging studies not currently on any treatment Will continue to follow. Subjective Date/time seen: 03/27/19 18:22 No new issues noted -- remains on mechanical ventilation and pressor support; prognosis grim from review of multiple physician notes; renal function continues to deteriorate. Exam Narrative: Exam Narrative: General: WD/WN female in NAD; intubated Heart: normal S1 and S2; no rub Lungs: coarse breath sounds throughout Abdomen: soft, nontender, nondistended, positive bowel sounds Extremities: no cyanosis or clubbing; 1+ edema Skin: warm and dry Objective Data Vital Signs Vital Signs: Vital Signs Temp Pulse Resp BP Pulse Ox 03/27/19 18:00 110 H 24 H 106/59 L 99 03/27/19 16:59 108 H 99 03/27/19 16:19 112 H 03/27/19 16:00 37.6 C 112 H 24 H 83/50 L 99 03/27/19 15:29 121 H 23 H 99 03/27/19 14:31 130 H 24 H 03/27/19 14:24 126 H 99 03/27/19 14:21 127 H 25 H 03/27/19 14:00 123 H 23 H 87/48 L 97 03/27/19 13:55 120 H 03/27/19 12:41 38.5 C H 03/27/19 12:04 130 H 03/27/19 12:00 37.9 C H 130 H 24 H 89/52 L 98 03/27/19 11:55 128 H 24 H 98 03/27/19 11:41 37.3 C 03/27/19 10:55 125 H 100 03/27/19 10:00 106 H 24 H 96/55 L 100 03/27/19 08:16 113 H 25 H 03/27/19 08:13
[2019-03-27] MEDS: PROPOFOL IV EMULSION 100 ML 16.6 MG IV CONT (20:32)
[2019-03-28] VITALS (35 sets, daily range): BP systolic 85–110; BP diastolic 54–68; PULSE 105–140; RESP 23–30; TEMP 36.9–37.8; O2SAT 93–99
[2019-03-28 00:09] LABS: Glucose Point of Care 99 (65-105)
[2019-03-28] MEDS: METOPROLOL TARTRATE INJ 5 MG/5 ML VIAL IV PUSH ×6 (00:37→20:24)
[2019-03-28] MEDS: IPRATROPIUM BR 0.02% INH SOLN 0.5 MG/2.5 ML VIAL INHALATION ×4 (02:13→20:49)
[2019-03-28] MEDS: NOREPINEPHRINE 8 MG/D5W 250 ML 8 MG/250 ML BAG 20.6 MG IV CONT (02:14)
[2019-03-28] MEDS: PROPOFOL IV EMULSION 100 ML 16.6 MG IV CONT ×4 (02:49→20:27)
[2019-03-28 04:41] LABS: Alveolar/Arterial O2 Gradient 52.5 mmHg; Base Excess ABG -10.5 mEq/l (+/-2.0); Carboxyhemoglobin 0.2 % THb (0-2.0); Fractional Inspired Oxygen 30 %; HCO3 ABG 14.8 mEq/l (22.0-26.0); Methemoglobin ABG 0.4 %THb (0-1.5); Oxygen Content ABG 13.1 %vol (16.0-22.0); Oxygen Saturation ABG 98.2 % (95.0-100.0); Oxyhemoglobin 97.1 % THb (90.0-100.0); PCO2 ABG 30.7 mmHg (35.0-45.0); PO2 ABG 125.3 mmHg (80.0-100.0); PO2 FiO2 Ratio Arterial Blood 4.18 %; Reduced Hemoglobin 2.3 %THb (0-5.0); Total Hemoglobin 9.4 g/dL (12.0-18.0); pH ABG 7.301 (7.350-7.450)
[2019-03-28 04:51] LABS: Arterial Blood Gas PEEP 8 cmH2O; Arterial Blood Gas Vent Mode CMV; Arterial Blood Gas Ventilator rate 14 /MIN; Device VENTILATOR; Modified Allen's Test Pass; Site Drawn RIGHT RADIAL
[2019-03-28 04:52] LABS: Arterial Blood Gas Tidal Volume 400 ml
[2019-03-28 05:08] LABS: Blood Urea Nitrogen 102 mg/dL (7-17); Calcium 8.3 mg/dL (8.4-10.2); Carbon Dioxide 18 mmol/L (22-30); Chloride 102 mmol/L (98-107); Estimated CRCL calculation 20 ml/min; Estimated Glomerular Filt Rate 18; Glucose 105 mg/dL (65-105); Phosphorus 8.8 mg/dL (2.5-4.5); Potassium 5.2 mmol/L (3.4-5.0); Sodium 134 mmol/L (137-145)
[2019-03-28] MEDS: DEXTROSE 50% 25 GM/50 ML SYRINGE IV PUSH (07:55)
[2019-03-28] MEDS: INSULIN HUMAN REGULAR (*BKC) 100 UNITS/ML 10 UNITS IV PUSH (07:55)
[2019-03-28] MEDS: SODIUM BICARBONATE 8.4% 50 MEQ/50 ML VIAL 100 MEQ IV PUSH (07:55)
[2019-03-28] MEDS: PANTOPRAZOLE SODIUM IV 40 MG VIAL IV PUSH (08:21)
--- NOTE | 2019-03-28 11:34 | PCDIET ---
Nutrition Follow-Up Complete: Nutrition Diagnosis: Suboptimal oral intake related to decreased appetite as evidenced by meal refusal and reported weight loss. Nutrition Goal: Tube feeding tolerance Patient receiving Nepro at 10mL/hr. Family is planning on withdrawing care on 03/29/19. Last recorded weight is 81.4 kg which is increased. +I/O. Bowel Motility: +BM today. Labs Reviewed: BUN (102), Cr (3.2), K (5.2), Na (134), PO4 (8.8) Meds Noted: Maxipime, Questran, Nimbex, Vitamin B12, Fentanyl, Folic Acid, Mag-Ox, MVI/minerals, Levophed, Protonix, Vitamin B1, Propofol Additional Notes: Propofol infusing at 16.6mL/hr which provides 438kcal over 24 hour period. Recommend continuing trickle feedings until support is withdrawn. Nutrition Monitoring and Evaluation: Follow up every Sunday/Sunday. Follow daily in ICU rounds.
[2019-03-28 12:04] LABS: Glucose Point of Care 93 (65-105)
--- NOTE | 2019-03-28 13:09 | WPDINTPN ---
Progress Note: A&P Assessment and Plan (1) Acute respiratory failure: Qualifiers: Respiratory failure complication: unspecified whether with hypoxia or hypercapnia Qualified Code(s): J96.00 - Acute respiratory failure, unspecified whether with hypoxia or hypercapnia Code(s): J96.00 - Acute respiratory failure, unspecified whether with hypoxia or hypercapnia Status: Acute Assessment and Plan: Post cardiac arrest patient was having difficulty breathing, found to have pulmonary edema, requiring intubation on 03/20/2019 - chest x-ray, vent settings and ABGs reviewed - Continue bronchodilators - CT scan of the chest On 03/20/2019 did not show any pulmonary emboli, 1.4 cm nodule in the left lower lung lobe suspicious for primary bronchogenic carcinoma, mediastinal and left supraclavicular lymphadenopathy and bilateral adrenal masses consist with metastatic disease. A liver mass and splenic masses suspicious for metastatic disease. - patient is sedated with propofol., daily sedation vacation, maintain RASS of 0 to -2 - unable to place patient on spontaneous breathing trial due to a mentation (2) Cardiac arrest: Code(s): I46.9 - Cardiac arrest, cause unspecified Status: Acute Assessment and Plan: patient had cardiac arrest overnight consistent with torsades, went into AFib RVR post resuscitation and then SVT. Patient was cardioverted and given adenosine without success. remains in sinus tachycardia - continue metoprolol, cardiology following the patient - echocardiogram 03/20/2019 shows EF of 30 35%, grade 1 diastolic dysfunction, global hypokinesis of the left ventricle right ventricular function is reduced, moderate pulmonary hypertension with RVSP of 45 mmHg (3) Arterial hypotension: Qualifiers: Hypotension type: other hypotension type Qualified Code(s): I95.89 - Other hypotension Code(s): I95.9 - Hypotension, unspecified Status: Resolved Assessment and Plan: patient has been hypotensive likely related to severe tachycardia, hypovolemia, sedation meds, metoprolol - Patient on Levophed, maintain mean arterial pressure is greater than 65 mmHg - source likely lungs, continue cefepime, - appreciate infectious disease evaluation and recommendation (4) Acute kidney injury: Code(s): N17.9 - Acute kidney failure, unspecified Status: Acute Assessment and Plan: patient is volume overloaded, likely related to acute kidney injury. Unable to diurese secondary to being on Levophed - acute kidney injury likely related to septic shock, hypovolemia, contrast induced nephropathy - discussed with Nephrology, continue to monitor urine output, renal function electrolytes - patient is hyperkalemic, will treat high potassium level (5) Tachycardia: Code(s): R00.0 - Tachycardia, unspecified Status: Acute Assessment and Plan: Patient with sinus tachycardia since admission, also known history of some sinus tachycardia and SVT in the past. - Improved as pt is on metoprolol IV per Cardiology (6) Symptomatic anemia: Code(s): D64.9 - Anemia, unspecified Status: Acute Assessment and Plan: Anemia of chronic disease versus bone marrow disease. Patient does have a poor p.o intake but anemia appear to be too severe for anemia of chronic disease .Records from [facility] reviewed . Patient has early recent admission 03/07/2019 and had received multiple blood transfusions for hemoglobin of 4. EGD was also done which was negative. Patient refused colonoscopy though she has been having some diarrhea. - She has received 7 units of packed RBC since admission. - d/w heme, may need bone marrow bx. - hemoglobin this morning is 7.1 (7) Lung cancer: Qualifiers: Laterality: unspecified laterality Lung location: unspecified part of lung Qualified Code(s): C34.90 - Mal
--- NOTE | 2019-03-28 14:36 | P.PNIM_ITS ---
Progress Note: A&P Assessment and Plan (1) Symptomatic anemia: Code(s): D64.9 - Anemia, unspecified Status: Acute Assessment and Plan: * likely due to lung ca and tx * 03/20 hgb 7.8 * 03/21 hgb 7.4 * 03/22 hgb 7.0 * 03/23 hgb 6.8, 1 U PRBC ordered * 03/24 hgb 8.3 * 03/25 hgb 7.4 * 03/26 hgb 7.8 * not checked today 03/28 and family probable going to withdrawal care in next 24 hours (2) Arterial hypotension: Qualifiers: Hypotension type: other hypotension type Qualified Code(s): I95.89 - Other hypotension Code(s): I95.9 - Hypotension, unspecified Status: Resolved Assessment and Plan: * anemia, dehydration, sepsis * 03/19 FENA 2.3% c/w prerenal etiology * 03/23 continue attempts at weaning norepinephrine * 03/25-03/28 continues on norepinephrine (3) Lung cancer: Qualifiers: Laterality: unspecified laterality Lung location: unspecified part of lung Qualified Code(s): C34.90 - Malignant neoplasm of unspecified part of unspecified bronchus or lung Code(s): C34.90 - Malignant neoplasm of unspecified part of unspecified bronchus or lung Status: Chronic Assessment and Plan: * It is probable that her prognostic curve has passed the inflection point of futility. (4) Leukocytosis: Qualifiers: Leukocytosis type: unspecified Qualified Code(s): D72.829 - Elevated white blood cell count, unspecified Code(s): D72.829 - Elevated white blood cell count, unspecified Status: Acute Assessment and Plan: * possible sepsis due to colitis vs pulmonary source (urine culture negative) * cefepime for latter and finished 7 day course 03/26 (5) Thrombocytosis: Code(s): D47.3 - Essential (hemorrhagic) thrombocythemia Status: Acute Assessment and Plan: * due to lung ca, sepsis (6) Hypokalemia: Code(s): E87.6 - Hypokalemia Status: Acute Assessment and Plan: * 03/20 3.6 after k-rider * 03/21 3.3, supplement * 2.8 4.4, 03/23 5.1, 03/24 4.8 * resolved (7) Tachycardia: Code(s): R00.0 - Tachycardia, unspecified Status: Acute Assessment and Plan: * pulseless VT early AM 03/20, code blue * SVT did not respond to adenosine 03/20 AM * Metoprolol maintaining HR 110s-120s * EF only 30 % (8) Acute kidney injury: Code(s): N17.9 - Acute kidney failure, unspecified Status: Acute Assessment and Plan: * 03/23 creatinine up to 2.1, 03/24 2.2, 03/25 2.3 03/26 2.5 03/28 3.2 (9) Cardiac arrest: Code(s): I46.9 - Cardiac arrest, cause unspecified Status: Acute Assessment and Plan: * pulseless VT early AM 03/20, code blue Subjective Date/time seen: 03/28/19 14:36 Interval history: Date of visit 03/28. norepi .still with sedation . Prognosis still very poor with multiorgan failure and metastatic non small cell ca continues to deteriorate Exam Narrative: Exam Narrative: BP 98/60 p 124 Peep 8 FIO2 30% still HEENT: ET tube and OG tube in place NECK: No JVD CHEST: coarse BS, still crackles left HEART: NL S1/S2, tachycardic ABDOMEN: BS+, soft, nontender, no mass, no bruits EXTREMITIES: No cyanosis, edema,of left arm and legs NEUROLOGIC: sedated. Objective Data Vital Signs Vital Signs: Vital Signs - 24 hr 03/27/19 15:29 03/27/19 16:00 03/27/19 16:19 Temperature 37.6 C Pulse Rate 121 H 112 H 112 H Respirator
--- NOTE | 2019-03-28 14:36 | PM.IMPN ---
Progress Note: A&P Assessment and Plan (1) Symptomatic anemia: Code(s): D64.9 - Anemia, unspecified Status: Acute Assessment and Plan: likely due to lung ca and tx 03/20 hgb 7.8 03/21 hgb 7.4 03/22 hgb 7.0 03/23 hgb 6.8, 1 U PRBC ordered 03/24 hgb 8.3 03/25 hgb 7.4 03/26 hgb 7.8 not checked today 03/28 and family probable going to withdrawal care in next 24 hours (2) Arterial hypotension: Qualifiers: Hypotension type: other hypotension type Qualified Code(s): I95.89 - Other hypotension Code(s): I95.9 - Hypotension, unspecified Status: Resolved Assessment and Plan: anemia, dehydration, sepsis 03/19 FENA 2.3% c/w prerenal etiology 03/23 continue attempts at weaning norepinephrine 03/25-03/28 continues on norepinephrine (3) Lung cancer: Qualifiers: Laterality: unspecified laterality Lung location: unspecified part of lung Qualified Code(s): C34.90 - Malignant neoplasm of unspecified part of unspecified bronchus or lung Code(s): C34.90 - Malignant neoplasm of unspecified part of unspecified bronchus or lung Status: Chronic Assessment and Plan: It is probable that her prognostic curve has passed the inflection point of futility. (4) Leukocytosis: Qualifiers: Leukocytosis type: unspecified Qualified Code(s): D72.829 - Elevated white blood cell count, unspecified Code(s): D72.829 - Elevated white blood cell count, unspecified Status: Acute Assessment and Plan: possible sepsis due to colitis vs pulmonary source (urine culture negative) cefepime for latter and finished 7 day course 03/26 (5) Thrombocytosis: Code(s): D47.3 - Essential (hemorrhagic) thrombocythemia Status: Acute Assessment and Plan: due to lung ca, sepsis (6) Hypokalemia: Code(s): E87.6 - Hypokalemia Status: Acute Assessment and Plan: 03/20 3.6 after k-rider 03/21 3.3, supplement 2.8 4.4, 03/23 5.1, 03/24 4.8 resolved (7) Tachycardia: Code(s): R00.0 - Tachycardia, unspecified Status: Acute Assessment and Plan: pulseless VT early AM 03/20, code blue SVT did not respond to adenosine 03/20 AM Metoprolol maintaining HR 110s-120s EF only 30 % (8) Acute kidney injury: Code(s): N17.9 - Acute kidney failure, unspecified Status: Acute Assessment and Plan: 03/23 creatinine up to 2.1, 03/24 2.2, 03/25 2.3 03/26 2.5 03/28 3.2 (9) Cardiac arrest: Code(s): I46.9 - Cardiac arrest, cause unspecified Status: Acute Assessment and Plan: pulseless VT early AM 03/20, code blue Subjective Date/time seen: 03/28/19 14:36 Interval history: Date of visit 03/28. norepi .still with sedation . Prognosis still very poor with multiorgan failure and metastatic non small cell ca continues to deteriorate Exam Narrative: Exam Narrative: BP 98/60 p 124 Peep 8 FIO2 30% still HEENT: ET tube and OG tube in place NECK: No JVD CHEST: coarse BS, still crackles left HEART: NL S1/S2, tachycardic ABDOMEN: BS+, soft, nontender, no mass, no bruits EXTREMITIES: No cyanosis, edema,of left arm and legs NEUROLOGIC: sedated. Objective Data Vital Signs Vital Signs: Vital Signs - 24 hr 03/27/19 15:29 03/27/19 16:00 03/27/19 16:19 Temperature 37.6 C Pulse Rate 121 H 112 H 112 H Respiratory Rate 23 H 24 H Blood Pressure 83/50 L Pulse Oximetry 99 99 03/27/19 16:59 03/27/19 18:00 03/27/19 20:00 Temperature 37.3 C Pulse Rate 108 H 110 H 104 H Respiratory Rate 24 H 24 H Blood Pressure 106/59 L 101/55 L Pulse Oximetry 99 99 98 03/27/19 20:10 03/27/19 20:35 03/27/19 21:31 Temperature Pulse Rate 103 H 106 H 105 H Respiratory Rate 23 H Blood Pressure Pulse Oximetry 98 03/27/19 21:37 03/27/19 22:00 03/27/19 23:10 Temperature Pulse Rate 103 H 110 H 119 H Respiratory Rate 24 H 24 H Blood Pressure 105/59 L Pulse Oximet
[2019-03-28 17:49] LABS: Glucose Point of Care 92 (65-105)
[2019-03-28] MEDS: NOREPINEPHRINE 8 MG/D5W 250 ML 8 MG/250 ML BAG 15 MG IV CONT (18:38)
[2019-03-28] MEDS: ACETAMINOPHEN ELIXIR 325 MG/10.15 ML UDC 650 MG FEED TUBE (20:28)
[2019-03-29] VITALS (16 sets, daily range): BP systolic 74–117; BP diastolic 57–74; PULSE 120–735; RESP 23–29; TEMP 36.8–37.8; O2SAT 94–97
[2019-03-29 00:16] LABS: Glucose Point of Care 95 (65-105)
[2019-03-29] MEDS: METOPROLOL TARTRATE INJ 5 MG/5 ML VIAL IV PUSH ×3 (01:02→09:15)
[2019-03-29] MEDS: PROPOFOL IV EMULSION 100 ML 13.3 MG IV CONT (02:04)
[2019-03-29] MEDS: IPRATROPIUM BR 0.02% INH SOLN 0.5 MG/2.5 ML VIAL INHALATION ×2 (02:59→08:29)
--- NOTE | 2019-03-29 05:28 | PC.NURSE ---
Spoke with Cole from [facility] and due to lung cancer with mets pt is not a candidate for organ donation. Rep will be on site later to merge charts and make sure nothing is missed .
--- NOTE | 2019-03-29 08:18 | WPDINTPN ---
Progress Note: A&P Assessment and Plan (1) Acute respiratory failure: Qualifiers: Respiratory failure complication: unspecified whether with hypoxia or hypercapnia Qualified Code(s): J96.00 - Acute respiratory failure, unspecified whether with hypoxia or hypercapnia Code(s): J96.00 - Acute respiratory failure, unspecified whether with hypoxia or hypercapnia Status: Acute Assessment and Plan: Post cardiac arrest patient was having difficulty breathing, found to have pulmonary edema, requiring intubation on 03/20/2019 - chest x-ray, vent settings and ABGs reviewed - Continue bronchodilators - CT scan of the chest On 03/20/2019 did not show any pulmonary emboli, 1.4 cm nodule in the left lower lung lobe suspicious for primary bronchogenic carcinoma, mediastinal and left supraclavicular lymphadenopathy and bilateral adrenal masses consist with metastatic disease. A liver mass and splenic masses suspicious for metastatic disease. - patient is sedated with propofol., daily sedation vacation, maintain RASS of 0 to -2 - family to probably withdraw support today (2) Cardiac arrest: Code(s): I46.9 - Cardiac arrest, cause unspecified Status: Acute Assessment and Plan: patient had cardiac arrest overnight consistent with torsades, went into AFib RVR post resuscitation and then SVT. Patient was cardioverted and given adenosine without success. remains in sinus tachycardia - continue metoprolol, cardiology following the patient - echocardiogram 03/20/2019 shows EF of 30 35%, grade 1 diastolic dysfunction, global hypokinesis of the left ventricle right ventricular function is reduced, moderate pulmonary hypertension with RVSP of 45 mmHg (3) Arterial hypotension: Qualifiers: Hypotension type: other hypotension type Qualified Code(s): I95.89 - Other hypotension Code(s): I95.9 - Hypotension, unspecified Status: Resolved Assessment and Plan: patient has been hypotensive likely related to severe tachycardia, hypovolemia, sedation meds, metoprolol - Patient on Levophed, maintain mean arterial pressure is greater than 65 mmHg - source likely lungs, continue cefepime, - appreciate infectious disease evaluation and recommendation (4) Acute kidney injury: Code(s): N17.9 - Acute kidney failure, unspecified Status: Acute Assessment and Plan: patient is volume overloaded, likely related to acute kidney injury. Unable to diurese secondary to being on Levophed - acute kidney injury likely related to septic shock, hypovolemia, contrast induced nephropathy - discussed with Nephrology, continue to monitor urine output, renal function electrolytes - patient is oliguric/anuric with worsening renal function (5) Tachycardia: Code(s): R00.0 - Tachycardia, unspecified Status: Acute Assessment and Plan: Patient with sinus tachycardia since admission, also known history of some sinus tachycardia and SVT in the past. - Improved as pt is on metoprolol IV per Cardiology (6) Symptomatic anemia: Code(s): D64.9 - Anemia, unspecified Status: Acute Assessment and Plan: Anemia of chronic disease versus bone marrow disease. Patient does have a poor p.o intake but anemia appear to be too severe for anemia of chronic disease .Records from [facility] reviewed . Patient has early recent admission 03/07/2019 and had received multiple blood transfusions for hemoglobin of 4. EGD was also done which was negative. Patient refused colonoscopy though she has been having some diarrhea. - She has received 7 units of packed RBC since admission. - d/w heme, may need bone marrow bx. - hemoglobin this morning is 7.1 (7) Lung cancer: Qualifiers: Laterality: unspecified laterality Lung location: unspecified part of lung Qualified Code(s): C34.90 - Malignant neoplasm of unspecified
[2019-03-29] MEDS: PANTOPRAZOLE SODIUM IV 40 MG VIAL IV PUSH (09:15)
[2019-03-29] MEDS: PROPOFOL IV EMULSION 100 ML 10.4 MG IV CONT (09:52)
[2019-03-29] MEDS: MORPHINE SULFATE 4 MG/ML INJ 5 MG IV PUSH (10:58)
[2019-03-29] MEDS: LORAZEPAM INJ 2 MG/ML VIAL IV PUSH ×2 (10:59→12:46)
[2019-03-29] MEDS: MORPHINE SULFATE 2 MG/ML INJ IV PUSH ×2 (11:33→12:47)
--- NOTE | 2019-03-29 12:43 | P.PNIM_ITS ---
Progress Note: A&P Assessment and Plan (1) Symptomatic anemia: Code(s): D64.9 - Anemia, unspecified Status: Acute Assessment and Plan: * likely due to lung ca and tx * 03/20 hgb 7.8 * 03/21 hgb 7.4 * 03/22 hgb 7.0 * 03/23 hgb 6.8, 1 U PRBC ordered * 03/24 hgb 8.3 * 03/25 hgb 7.4 * 03/26 hgb 7.8 * not checked today 03/29 and family going to withdrawal care today (2) Arterial hypotension: Qualifiers: Hypotension type: other hypotension type Qualified Code(s): I95.89 - Other hypotension Code(s): I95.9 - Hypotension, unspecified Status: Resolved Assessment and Plan: * anemia, dehydration, sepsis * 03/19 FENA 2.3% c/w prerenal etiology * 03/23 continue attempts at weaning norepinephrine * 03/25-03/28 continues on norepinephrine and to be stopped today (3) Lung cancer: Qualifiers: Laterality: unspecified laterality Lung location: unspecified part of lung Qualified Code(s): C34.90 - Malignant neoplasm of unspecified part of unspecified bronchus or lung Code(s): C34.90 - Malignant neoplasm of unspecified part of unspecified bronchus or lung Status: Chronic Assessment and Plan: * It is probable that her prognostic curve has passed the inflection point of futility. (4) Leukocytosis: Qualifiers: Leukocytosis type: unspecified Qualified Code(s): D72.829 - Elevated white blood cell count, unspecified Code(s): D72.829 - Elevated white blood cell count, unspecified Status: Acute Assessment and Plan: * possible sepsis due to colitis vs pulmonary source (urine culture negative) * cefepime for latter and finished 7 day course 03/26 (5) Thrombocytosis: Code(s): D47.3 - Essential (hemorrhagic) thrombocythemia Status: Acute Assessment and Plan: * due to lung ca, sepsis (6) Hypokalemia: Code(s): E87.6 - Hypokalemia Status: Acute Assessment and Plan: * 03/20 3.6 after k-rider * 03/21 3.3, supplement * 2.8 4.4, 03/23 5.1, 03/24 4.8 * resolved (7) Tachycardia: Code(s): R00.0 - Tachycardia, unspecified Status: Acute Assessment and Plan: * pulseless VT early AM 03/20, code blue * SVT did not respond to adenosine 03/20 AM * Metoprolol maintaining HR 110s-120s * EF only 30 % (8) Acute kidney injury: Code(s): N17.9 - Acute kidney failure, unspecified Status: Acute Assessment and Plan: * 03/23 creatinine up to 2.1, 03/24 2.2, 03/25 2.3 03/26 2.5 03/28 3.2 and not rechecked today (9) Cardiac arrest: Code(s): I46.9 - Cardiac arrest, cause unspecified Status: Acute Assessment and Plan: * pulseless VT early AM 03/20, code blue Subjective Date/time seen: 03/29/19 12:43 Interval history: Date of visit 03/29. norepi .still with sedation . Prognosis s till very poor with multiorgan failure and metastatic non small cell ca continues to deteriorate. Family has decided to with draw care today Exam Narrative: Exam Narrative: BP 98/60 p 128 Peep 8 FIO2 30% still HEENT: ET tube and OG tube in place NECK: No JVD CHEST: coarse BS, still crackles left HEART: NL S1/S2, tachycardic ABDOMEN: BS+, soft, nontender, no mass, no bruits EXTREMITIES: No cyanosis, edema,of left arm and legs NEUROLOGIC: sedated. Objective Data Vital Signs Vital Signs: Vital Signs - 24 hr 03/28/19 12:57 03/28/19 14:00 03/28/19 15:54 Temperature
--- NOTE | 2019-03-29 12:43 | PM.IMPN ---
Progress Note: A&P Assessment and Plan (1) Symptomatic anemia: Code(s): D64.9 - Anemia, unspecified Status: Acute Assessment and Plan: likely due to lung ca and tx 03/20 hgb 7.8 03/21 hgb 7.4 03/22 hgb 7.0 03/23 hgb 6.8, 1 U PRBC ordered 03/24 hgb 8.3 03/25 hgb 7.4 03/26 hgb 7.8 not checked today 03/29 and family going to withdrawal care today (2) Arterial hypotension: Qualifiers: Hypotension type: other hypotension type Qualified Code(s): I95.89 - Other hypotension Code(s): I95.9 - Hypotension, unspecified Status: Resolved Assessment and Plan: anemia, dehydration, sepsis 03/19 FENA 2.3% c/w prerenal etiology 03/23 continue attempts at weaning norepinephrine 03/25-03/28 continues on norepinephrine and to be stopped today (3) Lung cancer: Qualifiers: Laterality: unspecified laterality Lung location: unspecified part of lung Qualified Code(s): C34.90 - Malignant neoplasm of unspecified part of unspecified bronchus or lung Code(s): C34.90 - Malignant neoplasm of unspecified part of unspecified bronchus or lung Status: Chronic Assessment and Plan: It is probable that her prognostic curve has passed the inflection point of futility. (4) Leukocytosis: Qualifiers: Leukocytosis type: unspecified Qualified Code(s): D72.829 - Elevated white blood cell count, unspecified Code(s): D72.829 - Elevated white blood cell count, unspecified Status: Acute Assessment and Plan: possible sepsis due to colitis vs pulmonary source (urine culture negative) cefepime for latter and finished 7 day course 03/26 (5) Thrombocytosis: Code(s): D47.3 - Essential (hemorrhagic) thrombocythemia Status: Acute Assessment and Plan: due to lung ca, sepsis (6) Hypokalemia: Code(s): E87.6 - Hypokalemia Status: Acute Assessment and Plan: 03/20 3.6 after k-rider 03/21 3.3, supplement 2.8 4.4, 03/23 5.1, 03/24 4.8 resolved (7) Tachycardia: Code(s): R00.0 - Tachycardia, unspecified Status: Acute Assessment and Plan: pulseless VT early AM 03/20, code blue SVT did not respond to adenosine 03/20 AM Metoprolol maintaining HR 110s-120s EF only 30 % (8) Acute kidney injury: Code(s): N17.9 - Acute kidney failure, unspecified Status: Acute Assessment and Plan: 03/23 creatinine up to 2.1, 03/24 2.2, 03/25 2.3 2 2.5 03/28 3.2 and not rechecked today (9) Cardiac arrest: Code(s): I46.9 - Cardiac arrest, cause unspecified Status: Acute Assessment and Plan: pulseless VT early AM 03/20, code blue Subjective Date/time seen: 03/29/19 12:43 Interval history: Date of visit 03/29. norepi .still with sedation . Prognosis still very poor with multiorgan failure and metastatic non small cell ca continues to deteriorate. Family has decided to with draw care today Exam Narrative: Exam Narrative: BP 98/60 p 128 Peep 8 FIO2 30% still HEENT: ET tube and OG tube in place NECK: No JVD CHEST: coarse BS, still crackles left HEART: NL S1/S2, tachycardic ABDOMEN: BS+, soft, nontender, no mass, no bruits EXTREMITIES: No cyanosis, edema,of left arm and legs NEUROLOGIC: sedated. Objective Data Vital Signs Vital Signs: Vital Signs - 24 hr 03/28/19 12:57 03/28/19 14:00 03/28/19 15:54 Temperature Pulse Rate 135 H 123 H 128 H Respiratory Rate 24 H 28 H Blood Pressure 95/59 L Pulse Oximetry 95 03/28/19 16:00 03/28/19 17:43 03/28/19 18:00 Temperature 37.8 C H Pulse Rate 125 H 140 H 121 H Respiratory Rate 28 H 29 H Blood Pressure 110/68 85/59 L Pulse Oximetry 96 97 03/28/19 18:02 03/28/19 20:00 03/28/19 20:24 Temperature 37.4 C Pulse Rate 137 H 132 H 136 H Respiratory Rate 30 H Blood Pressure 97/63 L Pulse Oximetry 96 95 03/28/19 20:28 03/28/19 20:50 03/28/19 20:52 Temperature 37.7 C H Pulse Rate 11
--- NOTE | 2019-03-29 15:55 | P.DS_ITS ---
DS: Diagnosis Admitting Diagnosis Admitting Diagnosis: Malignant neoplasm of unspecified part of unspecified bronc hus or lung Discharge Diagnosis (1) Symptomatic anemia: Code(s): D64.9 - Anemia, unspecified Status: Acute Assessment and Plan: * likely due to lung ca and tx * 03/20 hgb 7.8 * 03/21 hgb 7.4 * 03/22 hgb 7.0 * 03/23 hgb 6.8, 1 U PRBC ordered * 03/24 hgb 8.3 * 03/25 hgb 7.4 * 03/26 hgb 7.8 * not checked today 03/29 and family going to withdrawal care today and patient shortly thereafter (2) Arterial hypotension: Qualifiers: Hypotension type: other hypotension type Qualified Code(s): I95.89 - Other hypotension Code(s): I95.9 - Hypotension, unspecified Status: Resolved Assessment and Plan: * anemia, dehydration, sepsis * 03/19 FENA 2.3% c/w prerenal etiology * 03/23 continue attempts at weaning norepinephrine * 03/25-03/28 continues on norepinephrine and to be stopped today and patient shortly thereafter (3) Lung cancer: Qualifiers: Laterality: unspecified laterality Lung location: unspecified part of lung Qualified Code(s): C34.90 - Malignant neoplasm of unspecified part of unspecified bronchus or lung Code(s): C34.90 - Malignant neoplasm of unspecified part of unspecified bronchus or lung Status: Chronic Assessment and Plan: * her prognostic curve has passed the inflection point of futility. (4) Leukocytosis: Qualifiers: Leukocytosis type: unspecified Qualified Code(s): D72.829 - Elevated white blood cell count, unspecified Code(s): D72.829 - Elevated white blood cell count, unspecified Status: Acute Assessment and Plan: * possible sepsis due to colitis vs pulmonary source (urine culture negative) * cefepime for latter and finished 7 day course 03/26 (5) Thrombocytosis: Code(s): D47.3 - Essential (hemorrhagic) thrombocythemia Status: Acute Assessment and Plan: * due to lung ca, sepsis (6) Hypokalemia: Code(s): E87.6 - Hypokalemia Status: Acute Assessment and Plan: * 2/6 3.6 after k-rider * 03/21 3.3, supplement * 2.8 4.4, 03/23 5.1, 03/24 4.8 * resolved (7) Tachycardia: Code(s): R00.0 - Tachycardia, unspecified Status: Acute Assessment and Plan: * pulseless VT early AM 03/20, code blue * SVT did not respond to adenosine 03/20 AM * Metoprolol maintaining HR 110s-120s * EF only 30 % (8) Acute kidney injury: Code(s): N17.9 - Acute kidney failure, unspecified Status: Acute Assessment and Plan: * 03/23 creatinine up to 2.1, 03/24 2.2, 03/25 2.3 03/26 2.5 03/28 3.2 and not rechecked today, the day of her (9) Cardiac arrest: Code(s): I46.9 - Cardiac arrest, cause unspecified Status: Acute Assessment and Plan: * pulseless VT early AM 03/20, code blue DS: Summary Hospital Course Hospital Course: 53-year-old black female with 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 She received 7 day course of IV cefepime in 4 probable pneumonitis. She remained hypotensive on pressors throughout the course of her hospitalization. She had steady decline in her renal function with renal failure. Family decided on the if they would withdrawal care. Pressors were discontinued and she was extubated and within a few hours. Cause of sepsis with metastatic non small cell carcinoma long complicated by renal failure and c
--- NOTE | 2019-03-29 15:55 | PM.DS ---
DS: Diagnosis Admitting Diagnosis Admitting Diagnosis: Malignant neoplasm of unspecified part of unspecified bronchus or lung Discharge Diagnosis (1) Symptomatic anemia: Code(s): D64.9 - Anemia, unspecified Status: Acute Assessment and Plan: likely due to lung ca and tx 03/20 hgb 7.8 03/21 hgb 7.4 03/22 hgb 7.0 03/23 hgb 6.8, 1 U PRBC ordered 03/24 hgb 8.3 03/25 hgb 7.4 03/26 hgb 7.8 not checked today 03/29 and family going to withdrawal care today and patient shortly thereafter (2) Arterial hypotension: Qualifiers: Hypotension type: other hypotension type Qualified Code(s): I95.89 - Other hypotension Code(s): I95.9 - Hypotension, unspecified Status: Resolved Assessment and Plan: anemia, dehydration, sepsis 03/19 FENA 2.3% c/w prerenal etiology 03/23 continue attempts at weaning norepinephrine 03/25-03/28 continues on norepinephrine and to be stopped today and patient shortly thereafter (3) Lung cancer: Qualifiers: Laterality: unspecified laterality Lung location: unspecified part of lung Qualified Code(s): C34.90 - Malignant neoplasm of unspecified part of unspecified bronchus or lung Code(s): C34.90 - Malignant neoplasm of unspecified part of unspecified bronchus or lung Status: Chronic Assessment and Plan: her prognostic curve has passed the inflection point of futility. (4) Leukocytosis: Qualifiers: Leukocytosis type: unspecified Qualified Code(s): D72.829 - Elevated white blood cell count, unspecified Code(s): D72.829 - Elevated white blood cell count, unspecified Status: Acute Assessment and Plan: possible sepsis due to colitis vs pulmonary source (urine culture negative) cefepime for latter and finished 7 day course 03/26 (5) Thrombocytosis: Code(s): D47.3 - Essential (hemorrhagic) thrombocythemia Status: Acute Assessment and Plan: due to lung ca, sepsis (6) Hypokalemia: Code(s): E87.6 - Hypokalemia Status: Acute Assessment and Plan: 03/20 3.6 after k-rider 03/21 3.3, supplement 2.8 4.4, 03/23 5.1, 03/24 4.8 resolved (7) Tachycardia: Code(s): R00.0 - Tachycardia, unspecified Status: Acute Assessment and Plan: pulseless VT early AM 03/20, code blue SVT did not respond to adenosine 2 AM Metoprolol maintaining HR 110s-120s EF only 30 % (8) Acute kidney injury: Code(s): N17.9 - Acute kidney failure, unspecified Status: Acute Assessment and Plan: 03/23 creatinine up to 2.1, 03/24 2.2, 03/25 2.3 2 2.5 03/28 3.2 and not rechecked today, the day of her (9) Cardiac arrest: Code(s): I46.9 - Cardiac arrest, cause unspecified Status: Acute Assessment and Plan: pulseless VT early AM 03/20, code blue DS: Summary Hospital Course Hospital Course: 53-year-old black female with 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 She received 7 day course of IV cefepime in 4 probable pneumonitis. She remained hypotensive on pressors throughout the course of her hospitalization. She had steady decline in her renal function with renal failure. Family decided on the if they would withdrawal care. Pressors were discontinued and she was extubated and within a few hours. Cause of sepsis with metastatic non small cell carcinoma long complicated by renal failure and congestive heart failure Time Spent with Patient Time attestation: Total time spent providing and/or coordinating discharge services: 35 minutes Exam Narrative: Exam Narrative: Condition prior to her Blood pressure slowly fell from 100 systolic on pressors after the pressors were withdrawn. Lungs were essentially clear CV tachy and wants pressures were remove she is slowly became bradycardic Extremities edema in all 4 limbs Neuro never bec
--- NOTE | 2019-03-29 18:50 | PC.NURSE ---
AT 1500 Dr. Lilly was notified of patient expiring. [facility] home notified of patient's and need for transport.
== END 2019-03-29 13:54 | disposition expired | DRG 870 ==
LOC: ANHED 06:14 → ANHICU 07:55 → ANHIMU 03-31 16:11
PROVIDERS: Internal Medicine; Internal Medicine Critical Care Medicine; Internal Medicine Hematology & Oncology; Internal Medicine Nephrology; Admitting Provider Family Medicine; Emergency Provider Emergency Medicine; PCP Family Medicine; Visit Provider Internal Medicine
DX: A41.9 Sepsis, unspecified organism (principal); J96.00 Acute respiratory failure, unspecified whether with hypoxia or hypercapnia; J18.9 Pneumonia, unspecified organism; C34.90 Malignant neoplasm of unspecified part of unspecified bronchus or lung; I47.2 Ventricular tachycardia; I47.1 Supraventricular tachycardia; C79.72 Secondary malignant neoplasm of left adrenal gland; C79.71 Secondary malignant neoplasm of right adrenal gland; C78.7 Secondary malignant neoplasm of liver and intrahepatic bile duct; C78.89 Secondary malignant neoplasm of other digestive organs; N17.9 Acute kidney failure, unspecified; G93.49 Other encephalopathy; I49.01 Ventricular fibrillation; I46.9 Cardiac arrest, cause unspecified; Z87.891 Personal history of nicotine dependence; Z90.710 Acquired absence of both cervix and uterus; D63.0 Anemia in neoplastic disease; I95.89 Other hypotension; D47.3 Essential (hemorrhagic) thrombocythemia; E87.6 Hypokalemia; K21.9 Gastro-esophageal reflux disease without esophagitis; I48.91 Unspecified atrial fibrillation; R59.1 Generalized enlarged lymph nodes; I10 Essential (primary) hypertension; E83.42 Hypomagnesemia; K52.9 Noninfective gastroenteritis and colitis, unspecified
CPT/HCPCS: 31500; 36415; 36430; 36600; 43752; 70450; 71045; 71275; 74019; 74177; 80048; 80053; 80069; 81001; 82274; 82375; 82533; 82570; 82607; 82728; 82746; 82805; 83050; 83540; 83550; 83605; 83615; 83735; 83930; 83935; 84100; 84300; 84443; 84466; 84478; 84484; 85014; 85018; 85025; 85027; 85046; 85610; 85730; 86850; 86880; 86900; 86901; 86923; 87040; 87045; 87046; 87081; 87086; 87088; 87269; 87324; 87427; 92950; 93005; 93306; 93971; 94002; 94003; 94640; 96361; 96374; 99285; A9270; C1751; C9113; G0378; J0131; J0153; J0171; J0330; J0692; J1160; J1815; J1940; J2060; J2250; J2270; J2690; J2704; J2765; J3010; J3475; J3480; J7030; J7050; J7060; J7070; J7120; P9016; Q9967